=== PATIENT | female | born 1940 | race Caucasian/White ===

== ENCOUNTER 2016-12-05 18:52 | Emergency (ER) | payer MEDICARE, OTHER ==
[2016-01-08 13:49] VITALS: BMI 33.0
[~2016-12-05 18:52] MED LIST: ADVAIR 500/501 DISK INH; BAYER CHEWABLE81 MG PO; CALCI-CHEW1 TAB.CHEW PO; DITROPAN X10 MG/BOTT PO; FISH OIL 1,0001 CA1; FISH OIL 1,0001 CA1 PO; NORVASC10 MG PO; SYNTHROID75 MCG PO; VITAMIN D31000 UNI2 PO; ZITHROMAX250 MG PO; ZOCOR20 MG PO
[2016-12-05 19:46] LABS: ALBUMIN 3.8 g/dL (3.4-5.0); ALKALINE PHOSPHATASE 99 U/L (46-116); ALT (SGPT) 38 U/L (10-68); BILIRUBIN - TOTAL 0.54 mg/dL (0.2-1.3); CALC OSMOLALITY 282 mosm/kg (275-300); CALCIUM 9.4 mg/dL (8.5-10.1); CARBON DIOXIDE 24.6 mmol/L (21.0-32.0); CHLORIDE - SERUM 105 mmol/L (98-107); CREATININE - SERUM 0.9 mg/dL (0.6-1.3); GLUCOSE 92 mg/dL (74-106); POTASSIUM - SERUM 4.2 mmol/L (3.5-5.1); PROTEIN - SERUM 7.2 g/dL (6.4-8.2); SODIUM 141 mmol/L (136-145); UREA NITROGEN 18 mg/dL (7-18); eGFR NON AFRICAN AMERICAN 65 mL/min (90-120)
[2016-12-05 19:59] LABS: T4 THYROXIN - FREE 1.48 ng/dL (0.76-1.46); T4 THYROXINE 12.6 ug/dL (4.7-13.3)
[2016-12-05 20:06] LABS: AMYLASE - SERUM 65 U/L (25-115); CREATINE KINASE 436 UL (21-215); LIPASE 151 U/L (73-393); PRO BNP 173 pg/mL (0-450); THYROID STIMULATING HORMONE 2.64 uIU/mL (0.36-3.74)
[2016-12-05 20:07] LABS: TROPONIN-I < 0.017 ng/mL (0.000-0.060)
[2016-12-05 20:09] LABS: BASOPHILS 0.5 % (0.0-2.0); EOSINOPHILS 9.6 % (0-7); HEMATOCRIT 41.5 % (36.0-48.0); HEMOGLOBIN 13.8 g/dL (12-16); IMMATURE GRANULOCYTES 0.2 % (0-5); LYMPHOCYTES 30.1 % (15-50); MCH 30.9 pg (26.0-34.0); MCHC 33.3 g/dL (31.0-37.0); MEAN PLATELET VOLUME 11.1 fL (7.4-10.4); MONOCYTES 9.3 % (2-11); NEUTROPHILS 50.3 % (40-80); RBC 4.46 10x6/uL (4.00-5.40); RDW 13.4 % (11.5-14.5); WBC 6.4 10x3/uL (4.8-10.8)
[2016-12-05 20:09] LABS: CKMB 8.2 U/L (0.0-3.6)
[2016-12-05 20:12] LABS: PLATELET COUNT 227 10x3/uL (130-400)
[2016-12-05 20:35] LABS: APPEARANCE CLEAR (CLEAR); BILIRUBIN NEGATIVE (NEGATIVE); COLOR YELLOW (YELLOW); GLUCOSE NEGATIVE (NEGATIVE); KETONE NEGATIVE (NEGATIVE); LEUKOCYTE ESTERASE TRACE (NEGATIVE); NITRITE NEGATIVE (NEGATIVE); PROTEIN NEGATIVE (NEGATIVE); SPECIFIC GRAVITY 1.015 (1.005-1.020); UROBILINOGEN NORMAL (NORMAL)
[2016-12-05 20:37] LABS: BACTERIA FEW /hpf (NONE SEEN); EPITHELIAL CELLS 0-5 /hpf (0-5); MUCUS <1+ /lpf (NONE SEEN); RED CELLS - URINE RARE /hpf (0-5); WHITE CELLS - URINE 0-5 /hpf (0-5)
[2016-12-05 20:50] LABS: UDS - AMPHET NEGATIVE QUAL (NEGATIVE); UDS - BARB NEGATIVE QUAL (NEGATIVE); UDS - BENZO NEGATIVE QUAL (NEGATIVE); UDS - COCAINE NEGATIVE QUAL (NEGATIVE); UDS - METH NEGATIVE QUAL (NEGATIVE); UDS - OPIATE NEGATIVE QUAL (NEGATIVE); UDS - PCP NEGATIVE QUAL (NEGATIVE); UDS - THC NEGATIVE QUAL (NEGATIVE)
[2016-12-05 21:19] LABS: HCG SERUM NEGATIVE (NEGATIVE)
== END 2016-12-05 22:15 | disposition home or self-care (01) ==
LOC: D.ER 18:52
PROVIDERS: Emergency Medicine; Family Medicine
DX: T38.1X1A Poisoning by thyroid hormones and substitutes, accidental (unintentional), initial encounter (principal); R53.83 Other fatigue

== ENCOUNTER 2016-12-30 09:37 | Emergency (ER) | payer MEDICARE, OTHER ==
[2016-01-08 13:49] VITALS: BMI 33.0
[2016-12-30 10:59] LABS: BASOPHILS 0.5 % (0-2); EOSINOPHILS 14.6 % (0-7); HEMATOCRIT 44.2 % (36.0-48.0); HEMOGLOBIN 14.4 g/dL (12-16); IMMATURE GRANULOCYTES 0.2 % (0-5); LYMPHOCYTES 23.6 % (15-50); MCH 30.4 pg (26.0-34.0); MCHC 32.6 g/dL (31.0-37.0); MCV 93.4 fL (80.0-100.0); MEAN PLATELET VOLUME 10.8 fL (7.4-10.4); MONOCYTES 8.8 % (2-11); NEUTROPHILS 52.3 % (40-80); PLATELET COUNT 223 10x3/uL (130-400); RBC 4.73 10x6/uL (4.00-5.40); RDW 12.9 % (11.5-14.5); WBC 5.8 10x3/uL (4.8-10.8)
[2016-12-30 11:20] LABS: ALBUMIN 3.5 g/dL (3.4-5.0); ALKALINE PHOSPHATASE 98 U/L (46-116); ALT (SGPT) 35 U/L (10-68); BILIRUBIN - TOTAL 0.62 mg/dL (0.2-1.3); CALC OSMOLALITY 282 mosm/kg (275-300); CALCIUM 9.6 mg/dL (8.5-10.1); CARBON DIOXIDE 27.5 mmol/L (21.0-32.0); CHLORIDE - SERUM 106 mmol/L (98-107); CREATININE - SERUM 0.9 mg/dL (0.6-1.3); GLUCOSE 101 mg/dL (74-106); PROTEIN - SERUM 7.1 g/dL (6.4-8.2); SODIUM 141 mmol/L (136-145); UREA NITROGEN 17 mg/dL (7-18); eGFR NON AFRICAN AMERICAN 65 mL/min (90-120)
[2016-12-30 11:33] LABS: CREATINE KINASE 94 UL (21-215); MAGNESIUM - SERUM 2.1 mg/dL (1.8-2.4); PRO BNP 152 pg/mL (0-450); TROPONIN-I < 0.017 ng/mL (0.000-0.060)
== END 2016-12-30 12:21 | disposition home or self-care (01) ==
LOC: D.ER 09:37
PROVIDERS: Emergency Medicine
DX: I50.9 Heart failure, unspecified (principal); J44.9 Chronic obstructive pulmonary disease, unspecified; I10 Essential (primary) hypertension

== ENCOUNTER 2017-06-16 07:33 | Inpatient (IN) | payer MEDICARE, OTHER ==
--- NOTE | ~2017-06-16 | HEMODYNAMI ---
PATIENT:SHI SERRANO MEDICAL RECORD: [id number] : 42 LOCATION:D. D.2107 ADMISSION DATE: 06/16/17 Generatedon:06/19/20178:58 Patient name: SHI SERRANO Patient #: [id number] SSN: D OB: 1940 Date of study: 06/19/2017 Page: Of Hemodynamic Procedure Report Patient Data Patient Demographics Procedure consent was obtained First Name: SHI Gender: Female Last Name: ZACH : 1940 [facility] Initial: A Age: 77 year(s) Patient #: [id number] Race: Unknown Additional ID: [id number] Contact details Address: [address] [place] [address] ROAD State: [place] City: [facility] Zip code: [address] Admission Admission Data Admission Date: 06/16/2017 Admission Time: 11:13 Room #: D.2107 Lab Results Lab Result Date: 06/19/2017 Lab Result Time: 0:00 Biochemistry Name Units Result Min Max BUN mg/dl 33 --(----)-* 7 18 Creatinine mg/dl 1 --(--*-)-- 0.6 1.3 CBC Name Units Result Min Max Hemoglobin g/dl 13.6 --(*---)-- 13.5 17.5 Procedure Procedure Types Cath Procedure Diagnostic Procedure C [facility] w/Coronaries Miscellaneous Procedures Moderate Sedation up to 30 minutes Procedure Description Procedure Date Procedure Date: 06/19/2017 Procedure Start Time: 8:36 Procedure End Time: 8:57 Procedure Staff Name Function Jesus Tafoya MD Performing Physician Nancy Myers RT Scrub Kyle Joyner RN Nurse Rei Torrez RT Monitor Procedure Data Cath Procedure Fluoroscopy Diagnostic fluoroscopy Total fluoroscopy Time: 3.9 time: 3.9 min min Diagnostic fluoroscopy Total fluoroscopy dose: 709 dose: 709 mGy mGy Contrast Material Contrast Material Type Amount (ml) Isovue 300 57 Entry Location Entry Primary Successful Side Size Upsize Upsize Entry Closure Succes sful Closure Location (Fr) 1 (Fr) 2 (Fr) Remarks Device Remarks Femoral Right 5 Fr Exoseal artery Estimated blood loss: 10 ml Diagnostic catheters Device Type Used For End Catheter Placement Cordis 5Fr JL 4.0 Procedure Catheter (MP) Cordis 5Fr 3DRC Catheter Procedure (MP) Cordis 5Fr Pigtail Procedure Catheter (MP) Diagnostic Infinity 5Fr Procedure JL 3.5 catheter Procedure Complications No complications Procedure Medications Medication Administration Route Dosage Oxygen NC 2 l/min Lidocaine 2% added to field 20 Heparin Flush Bag added to field 2 bags (1000units/500ml NS) 0.9% NaCl I.V. 100 ml/hr Versed I.V. 1 mg Fentanyl I.V. 50 mcg Hemodynamics Rest HGB: 13.6 (g/dl) Heart Rate: 73 (bpm) Pressure Samples Time Site Value (mmHg) Purpose Heart Use Rate(bpm) 8:40 AO 134/69(96) Snapshot 74 8:45 LV 130/-5,13 EDP 72 8:46 AO 129/60(87) Pullback 76 8:46 LV 136/8,20 Pullback 76 Gradients Valve Time Site 1 Site 2 Mean SEP/DFP Peak To Heart Use (mmHg) (sec/min) Peak Rate (mmHg) (bpm) Aortic 8:46 LV AO 6 11 7 76 136/8,20 129/60(87) Calculations Valve P-P Mean Valve Index Valve Source Name Gradient Area Flow (cm2) Aortic 7 6 7 6 Snapshots Pre Cath Intra NCS Post Cath Vital Signs Time Heart Resp SPO2 etCO2 NIBP (mmHg) Rhythm Pain Sedation Rate (ipm) (%) (mmHg) Status Level (bpm) 8:28:53 75 13 95 23.8 157/80(118) NSR 0 (11) 10(A) , No pain 8:33:50 75 20 96 24.6 155/87(122) NSR 0 (11) 10(A) , No pain 8:38:43 75 18 93 24.6 138/70(115) NSR 0 (11) 9(A) , No pain 8:43:36 73 16 93 16.4 130/72(105) NSR 0 (11) 9(A) , No pain 8:48:27 74 16 93 14.9 133/67(104) NSR 0 (11) 9(A) , No pain 8:53:18 75 21 94 29.1 136/77(108) NSR 0 (11) 10(A) , No pain Medications Time Medication Route Dose Verified Delivered Reason Notes Effec tiveness by by 8:20:16 Oxygen NC 2 Jesus Buffie used for l/min Lottie Joyner RN procedure MD 8:25:52 Lidocaine 2% added 20ml Jesus Jesus for local to vial Lottie Tafoya MD anesthetic field 8:25:58 Heparin Flush added 2 Jesus Jesus used for Bag to bags Lottie Tafoya MD procedure (1000units/500ml field SHELBY NS) 8:28:21 0.9% NaCl I.V. 100 Jesus Buffie Per ml/hr Lottie Joyner RN physician 8:32:30 Versed I.V. 1 mg Jesus Buffie for Lottie Joyner RN sedation 8:32:36 Fentanyl I.V. 50 Jesus Buffie for mcg Lottie Joyner RN sedation Procedure Log Time Note 7:50:46 Rei Torrez RT(R) sent for patient. Start room use. 7:57:47 Time tracking: Regular hours 7:57:51 Plan of Care:Hemodynamics will remain stable., Cardiac rhythm will remain stable., Comfort level will be maintained., Respiratory function will remain adequate., Patient/ family verbilizes understanding of procedure., Procedure tolerated without complication., Recovers from procedure without complications.. 8:00:42 H&P Date Dictated: 06/16/2017 Within 30 days and on chart.. 8:01:48 Lab Result : BUN 33 mg/dl 8:01:48 Lab Result : Creatinine 1 mg/dl 8:01:48 Lab Result : Hemoglobin 13.6 g/dl 8:01:52 Lab results completed and on chart. 8:18:56 Patient received from Med II to CCL 1 Alert and oriented. Tansferred to table in Supine position. 8:18:58 Warm blankets applied, and amada hugger turned on for patient comfort. 8:18:58 Correct patient and procedure confirmed by team. 8:19:00 Signed procedure consent form obtained from patient. 8:19:01 ECG and BP/O2 sat monitors applied to patient. 8:19:59 Pre-procedure instructions explained to patient. 8:20:00 Pre-op teaching completed and patient verbalized understanding. 8:20:07 Family in patients room. 8:20:08 Patient NPO since Midnight. 8:20:11 Is the patient allergic to Iodine/contrast media? No. 8:20:13 Is patient on blood thinner?Yes 8:20:16 Oxygen 2 l/min NC was administered by Kyle Joyner RN; used for procedure; 8:20:16 ACC The patient was administered the following blood thiners within the last 24 hours: ACCPlavix 8:20:19 Patient diabetic? No. 8:20:22 Patient not . Patient is over age 55. 8:20:25 Previous problem with sedation/anesthesia? No ? 8:20:28 Snore? Yes 8:20:29 Sleep apnea? No 8:20:30 Deviated septum? No 8:20:30 Opens mouth fully? Yes 8:20:31 Sticks out tongue? Yes 8:20:36 Airway obstruction? Yes COPD 8:20:41 Dentures? No ? 8:20:58 IV patent on arrival in right hand with 0.9% NaCl at [facility]. 8:21:04 Patient pain scale 0/10 ?. 8:25:52 Lidocaine 2% 20ml vial added to field was administered by Jesus Tafoya MD; for local anesthetic; 8:25:58 Heparin Flush Bag (1000units/500ml NS) 2 bags added to field was administered by Jesus Tafoya MD; used for procedure; 8:26:42 Pre procedure: right dorsailis pedis pulse 1+ Palpable, but thready & weak; easily obliterated 8:27:06 Unable to go radial due to IV in right hand. 8:27:15 Right groin area was prepped with chlora-prep and draped in sterile fashion 8:27:17 Alarms reviewed by R. N. 8:27:18 Sharps counted by scrub and verified by R.N. 8:27:30 Use device set Femoral Dx 8:27:31 Tegaderm 4 x 4 opened to sterile field. 8:27:32 Acist Hand Control opened to sterile field. 8:27:32 Acist Manifold opened to sterile field. 8:27:34 Acist Syringe opened to sterile field. 8:27:34 Bag Decanter opened to sterile field. 8:27:35 Medline Cath Pack opened to sterile field. 8:27:35 Terumo 5Fr [place] Sheath opened to sterile field. 8:27:35 St Bahvin 260cm J .035 wire opened to sterile field. 8:27:37 Diagnostic Infinity 5Fr Multipack catheter opened to sterile field. 8:27:46 Vital chart was started 8::47 Baseline sample Acquired. 8::13 Rhythm: sinus rhythm 8:: Full Disclosure recording started 8:28: 0.9% NaCl 100 ml/hr I.V. was administered by Kyle Joyner RN; Per physician; 8:28:55 Cook 4Fr Micropuncture ([id number]) opened to sterile field. 8:30:36 --------ALL STOP TIME OUT------ 8:30:38 Final Timeout: patient, procedure, and site verified with staff and physician. All members of the team are in agreement. 8:30:40 Right groin site verified by team. 8:30:43 Physical assessment completed. ASA score P 2 - A patient with mild systemic disease as per Jesus Tafoya MD. 8:30:47 Sedation plan: IV Moderate Sedation Versed, Fentanyl 8:32:30 Versed 1 mg I.V. was administered by Kyle Joyner RN; for sedation; 8:32:36 Fentanyl 50 mcg I.V. was administered by Kyle Joyner RN; for sedation; 8:34:00 IV in right hand is now not working, moving fluid to IV in left forearm. 8:36:17 Procedure started. 8:36:21 Local anesthetic to right femoral artery with Lidocaine 2% by Jesus Tafoya MD.INITIAL ACCESS ONLY 8:38:41 Access obtained with 4Fr micropunture. 8:38:52 A 5 Fr sheath was inserted into the Right Femoral artery 8:39:47 A Cordis 5Fr JL 4.0 Catheter (MP) was advanced over the wire and used for Procedure. 8:40:32 LCA angiography performed. 8:41:46 Catheter exchanged over wire. 8:41:53 Zero performed for pressure channel P1 8:42:02 A Cordis 5Fr 3DRC Catheter (MP) was advanced over the wire and used for Procedure. 8:43:19 RCA angiography performed. 8:43:34 Catheter exchanged over wire. 8:43:43 A Cordis 5Fr Pigtail Catheter (MP) was advanced over the wire and used for Procedure. 8:45:13 LV angiography performed. 8:45:14 LV gram done using CODY 8:45:22 EF : 70 % 8:45:24 LV hemodynamics recorded. 8:45:28 Injector settings: Ml/sec: 12, Volume: 8, 8:46:18 Catheter exchanged over wire. 8:46:24 A Diagnostic Infinity 5Fr JL 3.5 catheter was advanced over the wire and used for Procedure. 8:48:50 to better visualize the LAD. 8:48:58 LCA angiography performed. 8:51:40 Catheter exchanged over wire. 8:52:18 Cordis 5Fr Exoseal opened to sterile field. 8:52:42 Sheath removed intact; hemostasis achieved with Exoseal to the Right Femoral artery. 8:52:45 Procedure ended.(Physican Out) 8:52:59 Fluoroscopy time 03.90 minutes. 8:53:04 Fluoroscopy dose: 709 mGy 8:53:04 Flurop Dose total: 709 8:53:08 Contrast amount:Isovue 300 57ml. 8:53:10 Sharps counted by scrub and verified by R.N. 8:53:12 Insertion/operative site no bleeding no hematoma. 8:53:14 Post-op/insertion site Right Femoral artery dressed using a 4 x 4 and Tegaderm. 8:53:16 Post Procedure Pulses reassessed and unchanged 8:53:19 Post-procedure physical assessment completed. ASA score P 2 - A patient with mild systemic disease as per Jesus Tafoya MD. 8:53:22 Post procedure rhythm: unchanged. 8:53:25 Estimated blood loss: 10 ml 8:53:29 Post procedure instruction explained to patient.Patient verbalizes understanding. 8:53:29 Patient needs reinforcement of post procedure teaching. 8:53:40 Procedure type changed to Cath procedure, Diagnostic procedure, LHC, LHC w/Coronaries, Miscellaneous Procedures, Moderate Sedation up to 30 minutes 8:53:41 Procedure and supply charges have been captured, reviewed, submitted and are correct. 8:53:44 Procedure Complication : No complications 8:57:00 Vital chart was stopped 8:57:00 See physician's report for complete and final results. 8:57:07 Report given to PCU. 8:57:22 Patient transfered to PCU with Bed. 8:57:25 Procedure ended. 8:57:25 Full Disclosure recording stopped 8:57:31 End room use (Document Last) Device Usage Item Name Manufacture Quantity Catalog Hospital Part Current Minimal Lot# / Number Charge Number Stock Stock Serial# Code Tegaderm 4 x 3M 1 [id number] [id number] 515011 035283 5 4 Acist Hand Acist 1 29915 577939 591069 575531 5 Control [employer] Inc Acist Acist 1 68329 354371 297971 728050 5 Manifold Medical [employer] Inc Acist Syringe Acist 1 68716 866658 698069 994560 20 Medical Systems Inc Bag Decanter Microtek 1 2002S 711341 96784 782313 5 Medical Inc. Medline Cath Cardinal 1 [id number] 155621 00529 078316 5 Pack Health Terumo 5Fr Terumo 1 [id number] 771024 625121 301609 [address] Bhavin 1 790693 852591 623387 624964 30 J .035 wire Diagnostic Cardinal 1 [id number] 273653 40117 720691 30 Infinity 5Fr Health Multipack catheter Cook 4Fr Cook Medical 1 [id number] 304014 715050 447200 5 Micropuncture ([id number]) Cordis 5Fr JL Cardinal 1 693539 5 4.0 Catheter Health (MP) Cordis 5Fr Cardinal 1 905844 5 3DRC Catheter Health (MP) Cordis 5Fr Cardinal 1 374775 5 Pigtail Health Catheter (MP) Diagnostic Cardinal 1 [id number] 420748 270372 073584 5 Infinity 5Fr Health JL 3.5 catheter Cordis 5Fr Cardinal 1 EX500 158508 069430 891859 10 DoseMe Signature Audit [place] Stage Time Signature Unsigned Intra-Procedure 06/19/2017 Rei Torrez 8:58:24 AM RT(R) Signatures Monitor : Rei Torrez RT Signature : Date : Time : [facility] [address] [facility] [place] [address]
[2017-06-16 08:35] LABS: BASOPHILS 0.4 % (0-2); EOSINOPHILS 10.5 % (0-7); HEMOGLOBIN 14.9 g/dL (12-16); IMMATURE GRANULOCYTES 0.3 % (0-5); LYMPHOCYTES 13.3 % (15-50); MCH 31.6 pg (26.0-34.0); MCHC 33.1 g/dL (31.0-37.0); MCV 95.5 fL (80.0-100.0); MEAN PLATELET VOLUME 10.9 fL (7.4-10.4); MONOCYTES 6.3 % (2-11); NEUTROPHILS 69.2 % (40-80); PLATELET COUNT 205 10x3/uL (130-400); RBC 4.71 10x6/uL (4.00-5.40); RDW 13.8 % (11.5-14.5)
[2017-06-16 08:42] LABS: ALBUMIN 3.3 g/dL (3.4-5.0); ANION GAP 13.5 mmol/L (8-16); BILIRUBIN - TOTAL 0.49 mg/dL (0.2-1.3); CALCIUM 9.9 mg/dL (8.5-10.1); CARBON DIOXIDE 25.3 mmol/L (21.0-32.0); POTASSIUM - SERUM 3.8 mmol/L (3.5-5.1)
[2017-06-16] MEDS ORDERED: VENTOLIN HFA18 GM INH (12:40)
[2017-06-16] MEDS ORDERED: IPRAT-ALBUT 0.5-3 ML UPD (12:41)
--- NOTE | 2017-06-16 13:04 | NUR ---
RATIONALE FOR SCD'S EXPLAINED. REFUSED SCD'S
[2017-06-16 14:35] VITALS: BP 175/84; BMI 36.6
[2017-06-16 16:43] LABS: CKMB 5.4 U/L (0.0-3.6); CREATINE KINASE 132 UL (21-215)
[2017-06-16 16:45] LABS: TROPONIN-I 0.791 ng/mL (0.000-0.060)
--- NOTE | 2017-06-16 19:41 | NUR ---
RECEIVED REPORT, WILL ASSUME CARE OF PT, DENIES ANY NEEDS, BED IS LOW, SRX2, CALL LIGHT IN REACH, WILL CONTINUE PLAN OF CARE
[2017-06-16 19:57] LABS: CKMB 4.4 U/L (0.0-3.6); CREATINE KINASE 171 UL (21-215)
--- NOTE | 2017-06-16 20:09 | NUR ---
PLACED ON [id number]
[2017-06-17 02:24] LABS: CKMB 3.6 U/L (0.0-3.6); CREATINE KINASE 111 UL (21-215)
[2017-06-17 02:30] LABS: TROPONIN-I 0.337 ng/mL (0.000-0.060)
[2017-06-17 04:23] LABS: BASOPHILS 0.1 % (0-2); EOSINOPHILS 0.4 % (0-7); HEMATOCRIT 42.7 % (36.0-48.0); HEMOGLOBIN 14.4 g/dL (12-16); IMMATURE GRANULOCYTES 0.3 % (0-5); MCH 31.8 pg (26.0-34.0); MCHC 33.7 g/dL (31.0-37.0); MCV 94.3 fL (80.0-100.0); MEAN PLATELET VOLUME 11.3 fL (7.4-10.4); MONOCYTES 1.1 % (2-11); NEUTROPHILS 93.1 % (40-80); PLATELET COUNT 202 10x3/uL (130-400); RBC 4.53 10x6/uL (4.00-5.40); RDW 13.8 % (11.5-14.5)
[2017-06-17 04:41] LABS: ALBUMIN 3.1 g/dL (3.4-5.0); ANION GAP 17.2 mmol/L (8-16); BILIRUBIN - TOTAL 0.57 mg/dL (0.2-1.3); CALCIUM 9.4 mg/dL (8.5-10.1); CARBON DIOXIDE 22.8 mmol/L (21.0-32.0); CREATININE - SERUM 0.9 mg/dL (0.6-1.3); PROTEIN - SERUM 6.5 g/dL (6.4-8.2)
--- NOTE | 2017-06-17 07:15 | NUR ---
RECIEVED REPORT ON PATIENT, PATIENT IS ALERT AND ORIENTED AT THIS TIME. PATIENT IS SR ONMONITOR WITH A RATE OF 99 AT THIS TIME. PATIENT IS ON 3.5L/MIN VIA NC WITH NAD NOTED AT THIS TIME. CHEST RISES AND FALLS EQUALLY. PATIENT HAS A R HAND IV THAT IS SL AT THIS TIME. PATIENT DENIES ANY OTHER NEEDS. BED LOW AND LOCKED. CALL LIGHT IN REACH. CPOC
--- NOTE | 2017-06-17 07:24 | NUR ---
RESTING IN BED WITH NO DISTRESS. CPOC.
[2017-06-17 08:00] VITALS: BP 175/95
--- NOTE | 2017-06-17 08:00 | NUR ---
20 G IV SITED TO L AC. PATIENT IS GOING FOR A CTA SO NEEDED FOR CONTRAST. CPOC
--- NOTE | 2017-06-17 09:15 | NUR ---
MORNING MEDICATIONS GIVEN, NO ISSUES. CPOC
[2017-06-17 09:30] VITALS: BMI 36.5
--- NOTE | 2017-06-17 11:00 | NUR ---
PATIENT RESTING IN BED, DENIES ANY PAIN OR NEEDS AT THIS TIME. BED LOW AND LOCKED. CPOC
[2017-06-17 11:24] VITALS: BP 164/85
--- NOTE | 2017-06-17 12:49 | NUR ---
PATIENT SITTING UP IN BED, EATING LUNCH. DENIES ANY PAIN OR NEEDS AT THIS TIME. WILL CONT TO MONITOR PATIENT. BED LOW AND LOCKED. CALL LIGHT IN REACH. CPOC
--- NOTE | 2017-06-17 14:21 | NUR ---
ASSISTED PATIENT TO BATHROOM, PATIENT BACK TO BED. BED IS LOW AND LOCKED. PATIENT DENIES ANY PAIN AT THIS TIME. PATIENT GIVEN FLUTTER VALVE TO HELP BREAK UP SECRETION. NEED RESPIRATORY CULTURE. CPOC
[2017-06-17 16:00] VITALS: BP 144/65
--- NOTE | 2017-06-17 17:00 | NUR ---
PATIENT SITTING ON SIDE OF BED EATING DINNER. DENIES ANY NEEDS. STATES SHE WANTS TO GET A SHOWER LATER TONIGHT. WILL PASS ON IN REPORT. CPOC
--- NOTE | 2017-06-17 18:27 | NUR ---
SPOKE WITH DR MARTINEZ REGARDING CONSULT. CPOC
[2017-06-17 21:28] VITALS: BP 155/87
[2017-06-18 02:07] VITALS: BP 151/72
--- NOTE | 2017-06-18 03:02 | NUR ---
PATIENT RESTING WELL IN BED, DENIES ANY NEEDS OR PAIN AT THIS TIME. CALL LIGHT IN REACH.
--- NOTE | 2017-06-18 05:20 | NUR ---
PT RESTING COMFORTABLY AT THIS TIME, EYES CLOSED, RESPIRATIONS EVEN AND UNLABORED. CONTINUE TO MONITOR CLOSELY. BED LOW, CALL LIGHT IN REACH, SIDE RAILS X 2, HOB 30 DEGREES.
[2017-06-18 05:25] VITALS: BP 128/62
[2017-06-18 05:41] LABS: BASOPHILS 0 % (0-2); EOSINOPHILS 0 % (0-7); HEMATOCRIT 39.9 % (36.0-48.0); HEMOGLOBIN 13.4 g/dL (12-16); IMMATURE GRANULOCYTES 0.3 % (0-5); LYMPHOCYTES 4.2 % (15-50); MCH 31.2 pg (26.0-34.0); MCHC 33.6 g/dL (31.0-37.0); MEAN PLATELET VOLUME 11.4 fL (7.4-10.4); MONOCYTES 3.8 % (2-11); NEUTROPHILS 91.7 % (40-80); PLATELET COUNT 217 10x3/uL (130-400); RBC 4.29 10x6/uL (4.00-5.40); RDW 13.8 % (11.5-14.5)
[2017-06-18 05:54] LABS: ALBUMIN 3.1 g/dL (3.4-5.0); ANION GAP 17.3 mmol/L (8-16); BILIRUBIN - TOTAL 0.35 mg/dL (0.2-1.3); CALCIUM 10.3 mg/dL (8.5-10.1); CARBON DIOXIDE 21.4 mmol/L (21.0-32.0); POTASSIUM - SERUM 3.7 mmol/L (3.5-5.1); PROTEIN - SERUM 6.6 g/dL (6.4-8.2)
--- NOTE | 2017-06-18 07:09 | NUR ---
RECIEVED REPORT ON PATIENT, PATIENT IS ALERT AND ORIENTED THIS AM. PATIENT HAS A R HAND 22G IV THAT IS SL, AND A 20G IV IN L AC THAT IS SL. PATIENT IS ON 3.5L/MIN VIA NC WITH NAD NOTED AT THIS TIME. PATIENT IS SR ON MONITOR WITH A RATE OF 80. PATIENT DENIES ANY NEEDS OR PAIN AT THIS TIME. BED LOW AND LOCKED. CPOC
[2017-06-18 08:00] VITALS: BP 161/65
[2017-06-18 09:15] LABS: IMMUNOGLOBULIN E 125 IU/mL (0-100)
--- NOTE | 2017-06-18 11:24 | NUR ---
PATIENT SITTING UP IN BED, DENIES ANYN EEDS OR PAIN AT THIS TIME. BED LOW AND LOCKED. CPOC
[2017-06-18 12:00] VITALS: BP 144/70
--- NOTE | 2017-06-18 13:37 | NUR ---
PATIENT SITTING UP IN BED, FINISHED WITH LUNCH. DENIES ANY PAIN. CPOC
--- NOTE | 2017-06-18 14:00 | NUR ---
PATIENT WAS AMBULATING AROUND HALLWAY, WITHOUT O2, SAW PATIENT AROUND THE CORNER AND WAS SOB, O2 SAT CHECKED, PATIENT O2 SAT 88%, GOT PATIENT BACK TO ROOM AND PUT BACK ON O2 AND O2SAT 95% ON 3.5L/MIN VIA NC. CPOC
--- NOTE | 2017-06-18 15:47 | NUR ---
SPOKE WITH PATIENT REGARDING HAVING HEART CATH/STRESS TEST SINCE DR MARTINEZ IS THINKING PATIENT HAS HAD A MD, PATIENT WAS REFUSING BUT NOW PATIENT STATES SHE IS OKAY WITH IT ONCE THE RISK OF NOT HAVING PROCEDURE/TESTING DONE. PATIENT STATES SHE WANTS ME TO SPEAK WITH SON BEFORE MAKING A FORSURE DECISION. WILL SPEAK WITH SON WHEN HE ARRIVES.
--- NOTE | 2017-06-18 18:00 | NUR ---
PATIENT EATING DINNER AT THIS TIME, DENIES ANY NEEDS. CPOC
--- NOTE | 2017-06-18 18:28 | NUR ---
SPOKE WITH DR MARTINEZ, ORDERED TO KEEP PATIENT NPO AFTER MIDNIGHT FOR POSSIBLE HEART CATH TOMORROW. PATIENT INFORMED. CPOC
[2017-06-18 22:06] VITALS: BP 166/83
[2017-06-19] VITALS (12 sets, daily range): BP systolic 95–175; BP diastolic 52–85
[2017-06-19 05:02] LABS: BASOPHILS 0 % (0-2); EOSINOPHILS 0.1 % (0-7); HEMATOCRIT 41.2 % (36.0-48.0); HEMOGLOBIN 13.6 g/dL (12-16); IMMATURE GRANULOCYTES 0.3 % (0-5); LYMPHOCYTES 7.5 % (15-50); MCH 31.2 pg (26.0-34.0); MCV 94.5 fL (80.0-100.0); MEAN PLATELET VOLUME 10.8 fL (7.4-10.4); MONOCYTES 6.5 % (2-11); NEUTROPHILS 85.6 % (40-80); PLATELET COUNT 203 10x3/uL (130-400); RBC 4.36 10x6/uL (4.00-5.40); RDW 14.1 % (11.5-14.5); WBC 11.5 10x3/uL (4.8-10.8)
--- NOTE | 2017-06-19 05:16 | NUR ---
CALL LIGHT IN REACH, WILL CONTINUE WITH PLAN OF CARE.
[2017-06-19 05:18] LABS: ALBUMIN 2.8 g/dL (3.4-5.0); ANION GAP 12.3 mmol/L (8-16); BILIRUBIN - TOTAL 0.4 mg/dL (0.2-1.3); CALCIUM 9.9 mg/dL (8.5-10.1); CARBON DIOXIDE 25.7 mmol/L (21.0-32.0); PROTEIN - SERUM 6.3 g/dL (6.4-8.2)
--- NOTE | 2017-06-19 06:10 | NUR ---
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 CALL LIGHT IN REACH
--- NOTE | 2017-06-19 07:36 | NUR ---
PT SITTING UP IN BED WATCHING TV, PT TO HAVE HEART CATH TODAY. NPO. PT DENIES NEEDS WILL CONT TO MONITOR
--- NOTE | 2017-06-19 08:20 | NUR ---
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
--- NOTE | 2017-06-19 09:02 | NUR ---
RECEIVED REPORT FROM DEMETRIUS IN PILING SETTER. PT CLEAN CATH TO Ebony ARIAS. PT TO LAY FLAT FOR 2 HOURS.
--- NOTE | 2017-06-19 09:42 | NUR ---
PT HAS SPECIMEN CUP FOR RESP CULTURE AT BEDSIDE. INSTRUCTED HOW TO USE, PT TO CALL IF SHE IS ABLE TO COLLECT RESP CULTURE PT IS STILL LAYING FLAT R GROIN SITE WNL VS ARE STILL WNL WILL CONT TO MONITOR
--- NOTE | 2017-06-19 11:11 | NUR ---
PT BEDREST COMPLETE. VS ARE STILL WNL, R GROIN SITE IS STILL WNL. PT SITTING UP WITH NO PROBLEMS. IVONNE CASE MANAGEMENT CURRENTLY SPEAKING WITH PT
--- NOTE | 2017-06-19 11:20 | NUR ---
PT PIV IN R HAND INFILTRATED DC WITH CATH TIP INTACT. LEFT AC SL STILL PATENT, SWITCHED IV ABX TO THIS PIV.
--- NOTE | 2017-06-19 13:27 | NUR ---
PT SITTING UP IN BED DENIES NEEDS WILL CONT TO MONITOR
--- NOTE | 2017-06-19 19:28 | NUR ---
PT CALLED C/O HER LEFT AC IV BLEEDING WHILE SL. PT IS ALERT AND ORIENTED, AND HER LT AC IV WAS IN FACT BLEEDING AROUND THE INSERTION SITE. I REMOVED THE IV WITH CATH TIP INTACT. WILL HAVE PT RESITED. PT DENIES ANY OTHER NEEDS. CONTINUE TO MONITOR CLOSELY. BED LOW, CALL LIGHT IN REACH, SIDE RAILS X 2, HOB 30 DEGREES.
[2017-06-20 00:34] VITALS: BP 123/61
[2017-06-20 04:32] VITALS: BP 122/57
--- NOTE | 2017-06-20 06:14 | NUR ---
PT RESTING COMFORTABLY, NO NEEDS AT THIS TIME. CONTINUE TO MONITOR CLOSELY.
[2017-06-20 06:27] LABS: BASOPHILS 0 % (0-2); EOSINOPHILS 2.9 % (0-7); HEMATOCRIT 39.8 % (36.0-48.0); HEMOGLOBIN 12.9 g/dL (12-16); IMMATURE GRANULOCYTES 0.2 % (0-5); LYMPHOCYTES 21.2 % (15-50); MCH 31.1 pg (26.0-34.0); MCHC 32.4 g/dL (31.0-37.0); MCV 95.9 fL (80.0-100.0); MEAN PLATELET VOLUME 10.6 fL (7.4-10.4); MONOCYTES 8.7 % (2-11); RBC 4.15 10x6/uL (4.00-5.40); RDW 14.3 % (11.5-14.5)
[2017-06-20 06:28] LABS: PLATELET COUNT 161 10x3/uL (130-400); WBC 5.8 10x3/uL (4.8-10.8)
[2017-06-20 06:59] LABS: ALBUMIN 2.7 g/dL (3.4-5.0); ANION GAP 9.2 mmol/L (8-16); BILIRUBIN - TOTAL 0.5 mg/dL (0.2-1.3); CALCIUM 9.3 mg/dL (8.5-10.1); CARBON DIOXIDE 28.2 mmol/L (21.0-32.0); CREATININE - SERUM 1.1 mg/dL (0.6-1.3); MAGNESIUM - SERUM 2.2 mg/dL (1.8-2.4); PHOSPHOROUS 3.6 mg/dL (2.5-4.9); POTASSIUM - SERUM 4.4 mmol/L (3.5-5.1); PROTEIN - SERUM 5.6 g/dL (6.4-8.2)
--- NOTE | 2017-06-20 07:32 | NUR ---
PT SITTING UP IN BED SLEEPING NO S/S DISTRESS NOTED RR EVEN AND UNLABORED. WILL CONT TO MONITOR
[2017-06-20 08:00] VITALS: BP 138/70
--- NOTE | 2017-06-20 09:02 | NUR ---
pt refuses another iv site. her iv came out last night and does not want another one. pt only has iv levaquin, possibility that she will go home today. will ask dr menchaca if we can switch iv levaquin to po per pt request.
--- NOTE | 2017-06-20 11:14 | NUR ---
Patient Name: SHI SERRANO Admission Status: ER Accout number: [id number] Admission Date: 06-16-2017 : 1940 Admission Diagnosis: Attending: JESSA PATEL Current LOS: 4 Anticipated DC Date: 06-20-2017 Planned Disposition: Home Primary Insurance: MEDICARE A & B Discharge Planning Comments: * Is the patient Alert and Oriented? Yes 0 * How many steps to enter\exit or inside your home? 2 W/RAILS 0 * PCP DR. MARIN 0 * Pharmacy [facility] [address] 0 * Preadmission Environment Home with Family 0 * ADLs Independent 0 * Equipment Cane Nebulizer Oxygen 0 * Other Equipment OXYGEN AT NIGHT ONLY [facility] - MEDICAL EQUIPMENT PROVIDER PREFERENCE 0 * List name and contact numbers for known caregivers / representatives who currently or will assist patient after discharge: ISABELLA SERRANO, SON, 0 * Community resources currently utilized Other 0 * Please name any agencies selected above. [facility] 0 * Additional services required to return to the preadmission environment? No 0 * Can the patient safely return to the preadmission environment? Yes 0 * Has this patient been hospitalized within the prior 30 days at any hospital? No 0 CM MET WITH PT IN ROOM TO DISCUSS DISCHARGE PLANNING AND NEEDS. 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 PT HAS CANE, NEBULIZER AND NIGHTTIME OXYGEN FROM [facility]. PT HAS NO OUTSIDE SERVICES ASSISTING IN THE HOME FOR HER CARE, BUT HAS HIRED CAREGIVERS ASSISTING WITH HER AT HOME NOW. CM DISCUSSED AVAILABILITY OF HOME HEALTH, REHAB SERVICES AND MEDICAL EQUIPMENT. PT DENIES DISCHARGE NEEDS FOR HERSELF, REPORTS HER SON WILL PICK HER UP FOR DISCHARGE HOME. IMPORTANT MESSAGE FROM MEDICARE PROVIDED AND EXPLAINED. PT ASKED THAT CM CALL [facility] [place] TO ASK FOR HOME HEALTH OR HOME CARE FOR HER SPOUSE AT HOME TO ASSIST IN HIS CARE. CM CALLED [facility] IN [place], , SPOKE TO BRIANNE, EXPLAINED REQUEST; REQUEST WAS ELECTRONICALLY FORWARDED TO FELISHA MEDELLIN OF [facility] FOR REVIEW. CM RECEIVED OXYGEN TESTING AND ORDER FOR OXYGEN. CM MET WITH PT IN ROOM, PT WOULD LIKE TO GET HER PORTABLE OXYGEN FROM [facility]. CM DISCUSSED AVAILABILITY OF REHAB AND HOME HEALTH FOR PT, PT DECLINES, REPORTS WITH [facility] TAKING VITALS AND ARRANGING MEDICATIONS, SHE IS ABLE TO DO EVERYTHING ELSE HERSELF AND DENIES NEED FOR HOME PHYSICAL THERAPY SERVICES. CM CALLED [facility], , SPOKE TO CYNTHIA, PROVIDED REFERRAL INFORMATION. CM FAXED REFERRAL TO [facility] FOR OXYGEN AT [phone]. [facility] PATIENT TO DELIVER PORTABLE OXYGEN TO HOSPITAL ROOM FOR DISCHARGE HOME TODAY. Release And Technical Records Clerk: Gwyn Padilla
[2017-06-20 11:39] VITALS: BP 136/76
--- NOTE | 2017-06-20 12:41 | NUR ---
PT SAYS IT WILL BE A WHILE BEFORE SHE CAN GO HOME. SHE HAS TO WAIT ON HER FAMILY TO GET OFF WORK TO COME AND GET HER.
[2017-06-20] MEDS ORDERED: IPRAT-ALBUT 0.5-3 ML UPD (13:15)
--- NOTE | 2017-06-20 14:38 | NUR ---
WENT OVER DC PAPERWORK WITH PT PT VERBALIZES UNDERSTANDING. 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 PT IS AWAITING HOME O2 TO BE DELIVERED AND HER SON TO PICK HER UP WILL NOTIFY STAFF WHEN SHE IS READY TO GO.
--- NOTE | 2017-06-20 14:43 | NUR ---
WHILE GOING OVER PT DC PAPERWORK, [facility] [address] AND WANTED HER SCRIPT CALLED IN TO [facility] ON [address] CALLED [facility] ON [address] AND TOLD THEM TO CANCEL SCRIPT AND SCRIPT WAS CALLED IN TO [facility] ON [facility]. SPOKE WITH NAREN.
--- NOTE | 2017-06-20 15:45 | NUR ---
HOME O2 WAS DELIVERED. WHEELED PT DOWN TO FRONT ENTRANCE WHERE SHE WAS PICKED UP BY HER FAMILY
== END 2017-06-20 15:45 | disposition home or self-care (01) | DRG 280 ==
LOC: D.ER 07:33 → D.M2 11:13
PROVIDERS: Emergency Medicine; Internal Medicine Cardiovascular Disease; Internal Medicine Pulmonary Disease; ADMIT Family Medicine
PROC: B2151ZZ Fluoroscopy of Left Heart using Low Osmolar Contrast (ICD-10-PCS; 2017-06-19)
PROC: 4A023N7 Measurement of Cardiac Sampling and Pressure, Left Heart, Percutaneous Approach (ICD-10-PCS; 2017-06-19)
PROC: B2101ZZ Fluoroscopy of Single Coronary Artery using Low Osmolar Contrast (ICD-10-PCS; principal; 2017-06-19 07:15)
DX: I21.4 Non-ST elevation (NSTEMI) myocardial infarction (principal); J96.01 Acute respiratory failure with hypoxia; J15.6 Pneumonia due to other Gram-negative bacteria; J15.212 Pneumonia due to Methicillin resistant Staphylococcus aureus; J44.0 Chronic obstructive pulmonary disease with (acute) lower respiratory infection; J44.1 Chronic obstructive pulmonary disease with (acute) exacerbation; J98.11 Atelectasis; I25.10 Atherosclerotic heart disease of native coronary artery without angina pectoris; G47.33 Obstructive sleep apnea (adult) (pediatric); I10 Essential (primary) hypertension; E03.9 Hypothyroidism, unspecified; I07.1 Rheumatic tricuspid insufficiency; Z87.891 Personal history of nicotine dependence

== ENCOUNTER 2017-07-23 13:18 | Emergency (ER) | payer MEDICARE, OTHER ==
[~2017-07-23 13:18] MED LIST changes: +IPRAT-ALBUT 0.5-3 ML UPD; +VENTOLIN HFA18 GM INH
[2017-07-23 13:53] LABS: BASOPHILS 0.3 % (0-2); EOSINOPHILS 12.2 % (0-7); HEMATOCRIT 40.2 % (36.0-48.0); HEMOGLOBIN 13.2 g/dL (12-16); IMMATURE GRANULOCYTES 0.2 % (0-5); LYMPHOCYTES 17.9 % (15-50); MCH 30.8 pg (26.0-34.0); MCHC 32.8 g/dL (31.0-37.0); MCV 93.9 fL (80.0-100.0); MEAN PLATELET VOLUME 10.3 fL (7.4-10.4); MONOCYTES 7.8 % (2-11); NEUTROPHILS 61.6 % (40-80); PLATELET COUNT 175 10x3/uL (130-400); RBC 4.28 10x6/uL (4.00-5.40); RDW 13.8 % (11.5-14.5); WBC 6.2 10x3/uL (4.8-10.8)
[2017-07-23 14:09] LABS: ALBUMIN 3.4 g/dL (3.4-5.0); ALKALINE PHOSPHATASE 86 U/L (46-116); ALT (SGPT) 31 U/L (10-68); BILIRUBIN - TOTAL 0.59 mg/dL (0.2-1.3); CALC OSMOLALITY 277 mosm/kg (275-300); CALCIUM 9.6 mg/dL (8.5-10.1); CARBON DIOXIDE 26.7 mmol/L (21.0-32.0); CHLORIDE - SERUM 104 mmol/L (98-107); CREATININE - SERUM 0.8 mg/dL (0.6-1.3); GLUCOSE 93 mg/dL (74-106); PROTEIN - SERUM 6.8 g/dL (6.4-8.2); SODIUM 138 mmol/L (136-145); UREA NITROGEN 17 mg/dL (7-18); eGFR NON AFRICAN AMERICAN 74 mL/min (90-120)
[2017-07-23 14:18] LABS: CREATINE KINASE 117 UL (21-215); PRO BNP 240 pg/mL (0-450)
[2017-07-23 14:21] LABS: TROPONIN-I < 0.017 ng/mL (0.000-0.060)
== END 2017-07-23 16:13 | disposition home or self-care (01) ==
LOC: D.ER 13:18
PROVIDERS: Emergency Medicine
DX: R06.00 Dyspnea, unspecified (principal); J44.9 Chronic obstructive pulmonary disease, unspecified; I10 Essential (primary) hypertension

== ENCOUNTER 2017-07-24 09:00 | Emergency (ER) | payer MEDICARE, OTHER ==
[2017-07-24 09:35] LABS: BASOPHILS 0.1 % (0-2); EOSINOPHILS 0.1 % (0-7); HEMATOCRIT 40.9 % (36.0-48.0); HEMOGLOBIN 13.6 g/dL (12-16); IMMATURE GRANULOCYTES 0.3 % (0-5); LYMPHOCYTES 4.9 % (15-50); MCH 31.1 pg (26.0-34.0); MCHC 33.3 g/dL (31.0-37.0); MCV 93.4 fL (80.0-100.0); MEAN PLATELET VOLUME 10.4 fL (7.4-10.4); MONOCYTES 4.2 % (2-11); NEUTROPHILS 90.4 % (40-80); PLATELET COUNT 205 10x3/uL (130-400); RBC 4.38 10x6/uL (4.00-5.40); RDW 13.4 % (11.5-14.5)
[2017-07-24 09:58] LABS: WBC 11.6 10x3/uL (4.8-10.8)
[2017-07-24 10:01] LABS: ALBUMIN 3.4 g/dL (3.4-5.0); ANION GAP 13.3 mmol/L (8-16); BILIRUBIN - TOTAL 0.58 mg/dL (0.2-1.3); CALCIUM 9.4 mg/dL (8.5-10.1); CARBON DIOXIDE 24.8 mmol/L (21.0-32.0); CREATININE - SERUM 0.9 mg/dL (0.6-1.3); POTASSIUM - SERUM 4.1 mmol/L (3.5-5.1)
== END 2017-07-24 12:29 | disposition home or self-care (01) ==
LOC: D.ER 09:00
PROVIDERS: Emergency Medicine
DX: J44.1 Chronic obstructive pulmonary disease with (acute) exacerbation (principal); I10 Essential (primary) hypertension

== ENCOUNTER 2017-08-28 08:12 | Inpatient (IN) | payer MEDICARE, OTHER ==
[~2017-08-28] VITALS: Ht 157.5 cm; Wt 90.7 kg
[2017-08-28 09:51] LABS: BASOPHILS 0.1 % (0-2); EOSINOPHILS 0.2 % (0-7); HEMATOCRIT 44.2 % (36.0-48.0); HEMOGLOBIN 14.7 g/dL (12-16); IMMATURE GRANULOCYTES 0.5 % (0-5); LYMPHOCYTES 12.6 % (15-50); MCH 30.8 pg (26.0-34.0); MCHC 33.3 g/dL (31.0-37.0); MCV 92.5 fL (80.0-100.0); MEAN PLATELET VOLUME 10.6 fL (7.4-10.4); MONOCYTES 6.5 % (2-11); NEUTROPHILS 80.1 % (40-80); RBC 4.78 10x6/uL (4.00-5.40); RDW 13.3 % (11.5-14.5); WBC 10.2 10x3/uL (4.8-10.8)
[2017-08-28 09:52] LABS: PLATELET COUNT 251 10x3/uL (130-400)
[2017-08-28 09:58] LABS: ALBUMIN 3.8 g/dL (3.4-5.0); ANION GAP 12.9 mmol/L (8-16); BILIRUBIN - TOTAL 0.6 mg/dL (0.2-1.3); CALCIUM 10.1 mg/dL (8.5-10.1); CARBON DIOXIDE 25.9 mmol/L (21.0-32.0); CREATININE - SERUM 0.8 mg/dL (0.6-1.3); POTASSIUM - SERUM 3.8 mmol/L (3.5-5.1); PROTEIN - SERUM 7.4 g/dL (6.4-8.2)
[2017-08-28 10:30] LABS: APPEARANCE CLEAR (CLEAR); BILIRUBIN NEGATIVE (NEGATIVE); COLOR YELLOW (YELLOW); GLUCOSE NEGATIVE (NEGATIVE); KETONE NEGATIVE (NEGATIVE); NITRITE NEGATIVE (NEGATIVE); PROTEIN NEGATIVE (NEGATIVE); SPECIFIC GRAVITY 1.015 (1.005-1.020); UROBILINOGEN NORMAL (NORMAL)
[2017-08-28 10:31] LABS: BACTERIA FEW /hpf (NONE SEEN); EPITHELIAL CELLS 0-5 /hpf (0-5); RED CELLS - URINE OCC /hpf (0-5); WHITE CELLS - URINE 0-5 /hpf (0-5)
[2017-08-28] MEDS ORDERED: MEDROL DOSE PACK4 MG PO (13:35)
[2017-08-28 13:39] VITALS: BP 158/77; BMI 36.6
[2017-08-28 17:04] VITALS: BP 158/77
[2017-08-28 20:00] VITALS: BP 145/68
[2017-08-29 04:00] VITALS: BP 139/66
[2017-08-29 06:11] LABS: BASOPHILS 0.2 % (0-2); EOSINOPHILS 3.5 % (0-7); HEMATOCRIT 41.5 % (36.0-48.0); HEMOGLOBIN 13.7 g/dL (12-16); IMMATURE GRANULOCYTES 0.6 % (0-5); LYMPHOCYTES 10.9 % (15-50); MCH 30.8 pg (26.0-34.0); MCV 93.3 fL (80.0-100.0); MEAN PLATELET VOLUME 10.3 fL (7.4-10.4); MONOCYTES 2.9 % (2-11); NEUTROPHILS 81.9 % (40-80); PLATELET COUNT 233 10x3/uL (130-400); RBC 4.45 10x6/uL (4.00-5.40); RDW 13.4 % (11.5-14.5); WBC 8.3 10x3/uL (4.8-10.8)
[2017-08-29 06:39] LABS: CALCIUM 9.4 mg/dL (8.5-10.1); CARBON DIOXIDE 23.1 mmol/L (21.0-32.0); CREATININE - SERUM 0.9 mg/dL (0.6-1.3); POTASSIUM - SERUM 4.1 mmol/L (3.5-5.1)
[2017-08-29 08:16] VITALS: BP 137/56
[2017-08-29 12:57] VITALS: BP 184/78
[2017-08-29 13:49] VITALS: BMI 36.6
[2017-08-29 15:36] VITALS: Ht 157.5 cm; Wt 90.7 kg
[2017-08-29 16:14] VITALS: BP 185/72
[2017-08-29 20:00] VITALS: BP 123/66
[2017-08-30] VITALS: BP 154/67
[2017-08-30 04:00] VITALS: BP 122/84
[2017-08-30 09:03] VITALS: BP 156/63
[2017-08-30] MEDS ORDERED: LEVAQUIN750 MG PO (16:26)
== END 2017-08-30 17:10 | disposition home or self-care (01) | DRG 193 ==
LOC: D.ER 08:12 → D.MS 11:46
PROVIDERS: Emergency Medicine; Internal Medicine Pulmonary Disease
DX: J18.9 Pneumonia, unspecified organism (principal); J96.21 Acute and chronic respiratory failure with hypoxia; J44.1 Chronic obstructive pulmonary disease with (acute) exacerbation; J98.11 Atelectasis; J44.0 Chronic obstructive pulmonary disease with (acute) lower respiratory infection; I25.10 Atherosclerotic heart disease of native coronary artery without angina pectoris; I10 Essential (primary) hypertension; E03.9 Hypothyroidism, unspecified; G47.33 Obstructive sleep apnea (adult) (pediatric); E83.39 Other disorders of phosphorus metabolism

== ENCOUNTER → 2017-09-18 08:27 | Outpatient (CLI) | payer MEDICARE, OTHER ==
[2017-08-29 15:36] VITALS: BMI 36.6
--- NOTE | ~2017-09-18 | EC ---
PATIENT:SHI SERRANO DATE OF SERVICE: 09/18/17 SEX: F MEDICAL RECORD: [id number] DATE OF : 42 LOCATION:D[facility] AGE OF PATIENT: 77 ADMISSION DATE: 09/18/17 REFERRING PHYSICIAN: INTERPRETING PHYSICIAN: LETICIA MARTINEZ MD ECHOCARDIOGRAM REPORT ECHO CHARGES 4 ECHO COMPLETE CLINICAL DIAGNOSIS: AI/CHF ECHOCARDIOGRAPHIC MEASUREMENTS (adult normal given) AC root (d.<3.7cm) 2.9 cm LV Septum d (<1.2 cm> 1.3 cm Valve Excursion 1.7 cm LV Septum (systole) 1.5 cm Left Atria (s.<4.0cm> 3.9 cm LVPW d(<1.2cm) 1.4 cm RV (d.<2.3cm) 3.4 cm LVPW (sytole) 1.6 cm LV diastole(<5.6CM) 3.7 cm MV E-F(>70mm/sec) cm LV systole 2.6 cm LVOT Diameter 1.5 cm MV exc.(>10mm) cm Est.ejection fraction (50-75%) % Pericardial Effusion N DOPPLER: LVIT cm/sec A 113 cm/sec E 86.0 cm/sec LA cm/sec RVSP 41 mmHg LVOT 136 cm/sec AOP1/2T m/s Asc. Ao 191 cm/sec RVOT 94 cm/sec RA cm/sec PA 133 cm/sec AV Gradient Peak 14.65mmHg AV Mean 8.04 mmHg AV Area 1.3 cm MV Gradient Peak 7.26 mmHg MV Mean 2.79 mmHg MV Area cm COMMENTS: Senior Account Executive: 2 VEE KOHLER Textile Screen Maker: 4 Dr. Martinez TAPE# PACS DATE OF SERVICE: 09/18/2017 PROCEDURE: Transthoracic echocardiogram. FINDINGS: 1. The left ventricle shows concentric left ventricular hypertrophy with inflow characteristics consistent with diastolic dysfunction. Ejection fraction of 65% to 70%. No obvious regional wall motion abnormalities. 2. The right ventricle is mildly thickened and mildly dilated, but normal function. ECHOCARDIOGRAM REPORT [id number] SHI SERRANO 3. The left atrium is normal size and normal function. 4. The aortic valve is sclerotic, has thickened leaflets, but no evidence of aortic stenosis or significant regurgitation. 5. The mitral valve has trace mitral regurgitation. There is mitral annular calcification. 6. The tricuspid valve is structurally normal with trace tricuspid regurgitation. RVSP appears to be normal. 7. The pulmonic valve has trace pulmonic insufficiency. 8. The right atrium is normal size, normal function. CONCLUSIONS: The patient has evidence of hypertensive heart disease, diastolic dysfunction, and mild aortic sclerosis without stenosis. TRANSINT:[id number] Voice Confirmation ID: [id number] DOCUMENT ID: [id number] LETICIA MARTINEZ MD at 1020 CC: [id number] DICTATION DATE: 09/22/17 1125 ELECTROENCEPHALOGRAPH TECHNICIAN: 09/22/17 1356 DEP CLI 09/18/17 [facility] [address] [place] [address]
[~2017-09-18 08:27] MED LIST changes: +LEVAQUIN750 MG PO; +MEDROL DOSE PACK4 MG PO
== END | disposition home or self-care (01) ==
LOC: D.ECHO 08:27
DX: I50.9 Heart failure, unspecified (principal)

== ENCOUNTER 2017-09-30 16:23 | Emergency (ER) | payer MEDICARE, OTHER ==
[2017-08-29 15:36] VITALS: BMI 36.6
[2017-09-30 16:59] LABS: BASOPHILS 0.6 % (0-2); EOSINOPHILS 9.9 % (0-7); HEMATOCRIT 40.9 % (36.0-48.0); HEMOGLOBIN 13.4 g/dL (12-16); IMMATURE GRANULOCYTES 0.3 % (0-5); LYMPHOCYTES 26.5 % (15-50); MCHC 32.8 g/dL (31.0-37.0); MCV 91.5 fL (80.0-100.0); MEAN PLATELET VOLUME 10.1 fL (7.4-10.4); MONOCYTES 8.1 % (2-11); NEUTROPHILS 54.6 % (40-80); PLATELET COUNT 206 10x3/uL (130-400); RBC 4.47 10x6/uL (4.00-5.40); RDW 13.5 % (11.5-14.5); WBC 7.2 10x3/uL (4.8-10.8)
[2017-09-30 17:21] LABS: ALBUMIN 3.7 g/dL (3.4-5.0); ANION GAP 12.8 mmol/L (8-16); BILIRUBIN - TOTAL 0.6 mg/dL (0.2-1.3); CALCIUM 8.9 mg/dL (8.5-10.1); CARBON DIOXIDE 26.9 mmol/L (21.0-32.0); CREATININE - SERUM 0.9 mg/dL (0.6-1.3); POTASSIUM - SERUM 3.7 mmol/L (3.5-5.1); PROTEIN - SERUM 7.2 g/dL (6.4-8.2)
== END 2017-09-30 22:06 | disposition home or self-care (01) ==
LOC: D.ER 16:23
PROVIDERS: Physician Assistant
DX: J44.1 Chronic obstructive pulmonary disease with (acute) exacerbation (principal); Z86.79 Personal history of other diseases of the circulatory system; I10 Essential (primary) hypertension

== ENCOUNTER → 2017-10-03 07:22 | Outpatient (CLI) | payer MEDICARE, OTHER ==
[2017-08-29 15:36] VITALS: BMI 36.6
== END | disposition home or self-care (01) ==
LOC: D.RT 07:22
DX: J44.9 Chronic obstructive pulmonary disease, unspecified (principal)

== ENCOUNTER 2017-10-15 17:59 | Emergency (ER) | payer MEDICARE, OTHER ==
[2017-08-29 15:36] VITALS: BMI 36.6
[2017-10-15 18:38] LABS: BASOPHILS 0.3 % (0-2); EOSINOPHILS 12.4 % (0-7); HEMATOCRIT 39.7 % (36.0-48.0); IMMATURE GRANULOCYTES 0.2 % (0-5); LYMPHOCYTES 18.1 % (15-50); MCH 30.2 pg (26.0-34.0); MCHC 32.7 g/dL (31.0-37.0); MCV 92.3 fL (80.0-100.0); MEAN PLATELET VOLUME 10.9 fL (7.4-10.4); MONOCYTES 7.3 % (2-11); NEUTROPHILS 61.7 % (40-80); PLATELET COUNT 188 10x3/uL (130-400); RDW 13.8 % (11.5-14.5); WBC 10.4 10x3/uL (4.8-10.8)
[2017-10-15 19:01] LABS: ALBUMIN 3.8 g/dL (3.4-5.0); ANION GAP 15.4 mmol/L (8-16); BILIRUBIN - TOTAL 0.55 mg/dL (0.2-1.3); CALCIUM 9.5 mg/dL (8.5-10.1); CARBON DIOXIDE 24.4 mmol/L (21.0-32.0); CREATININE - SERUM 0.8 mg/dL (0.6-1.3); POTASSIUM - SERUM 3.8 mmol/L (3.5-5.1); PROTEIN - SERUM 7.2 g/dL (6.4-8.2)
== END 2017-10-15 21:11 | disposition home or self-care (01) ==
LOC: D.ER 17:59
PROVIDERS: Emergency Medicine
DX: J45.901 Unspecified asthma with (acute) exacerbation (principal); J01.90 Acute sinusitis, unspecified

== ENCOUNTER 2017-11-12 09:30 | Emergency (ER) | payer MEDICARE, OTHER ==
[2017-08-29 15:36] VITALS: BMI 36.6
[2017-11-12 10:14] LABS: BASOPHILS 0.7 % (0-2); HEMATOCRIT 39.2 % (36.0-48.0); HEMOGLOBIN 12.8 g/dL (12-16); LYMPHOCYTES 28.1 % (15-50); MCH 29.6 pg (26.0-34.0); MCHC 32.7 g/dL (31.0-37.0); MCV 90.5 fL (80.0-100.0); MEAN PLATELET VOLUME 9.8 fL (7.4-10.4); MONOCYTES 7.6 % (2-11); NEUTROPHILS 53.6 % (40-80); PLATELET COUNT 210 10x3/uL (130-400); RBC 4.33 10x6/uL (4.00-5.40); WBC 5.4 10x3/uL (4.8-10.8)
[2017-11-12 10:47] LABS: ALBUMIN 3.4 g/dL (3.4-5.0); ALKALINE PHOSPHATASE 103 U/L (46-116); ALT (SGPT) 30 U/L (10-68); BILIRUBIN - TOTAL 0.83 mg/dL (0.2-1.3); CALC OSMOLALITY 281 mosm/kg (275-300); CALCIUM 9.3 mg/dL (8.5-10.1); CARBON DIOXIDE 26.9 mmol/L (21.0-32.0); CHLORIDE - SERUM 105 mmol/L (98-107); CREATININE - SERUM 0.8 mg/dL (0.6-1.3); GLUCOSE 100 mg/dL (74-106); POTASSIUM - SERUM 3.6 mmol/L (3.5-5.1); PROTEIN - SERUM 6.8 g/dL (6.4-8.2); SODIUM 141 mmol/L (136-145); UREA NITROGEN 16 mg/dL (7-18); eGFR NON AFRICAN AMERICAN 74 mL/min (90-120)
[2017-11-12 10:48] LABS: CREATINE KINASE 78 UL (21-215); MAGNESIUM - SERUM 2.1 mg/dL (1.8-2.4); PRO BNP 95 pg/mL (0-450); THYROID STIMULATING HORMONE 1.73 uIU/mL (0.36-3.74)
[2017-11-12 10:51] LABS: TROPONIN-I < 0.017 ng/mL (0.000-0.060)
== END 2017-11-12 13:14 | disposition home or self-care (01) ==
LOC: D.ER 09:30
PROVIDERS: Emergency Medicine
DX: R06.00 Dyspnea, unspecified (principal); J44.1 Chronic obstructive pulmonary disease with (acute) exacerbation; I10 Essential (primary) hypertension; F17.200 Nicotine dependence, unspecified, uncomplicated

== ENCOUNTER 2017-11-17 13:48 | Emergency (ER) | payer MEDICARE, OTHER ==
[2017-08-29 15:36] VITALS: BMI 36.6
[2017-11-17 15:08] LABS: BASOPHILS 0.6 % (0-2); EOSINOPHILS 16.1 % (0-7); HEMATOCRIT 41.1 % (36.0-48.0); HEMOGLOBIN 13.4 g/dL (12-16); IMMATURE GRANULOCYTES 0.2 % (0-5); LYMPHOCYTES 21.6 % (15-50); MCHC 32.6 g/dL (31.0-37.0); MCV 92.2 fL (80.0-100.0); MEAN PLATELET VOLUME 10.7 fL (7.4-10.4); MONOCYTES 9.1 % (2-11); NEUTROPHILS 52.4 % (40-80); PLATELET COUNT 249 10x3/uL (130-400); RBC 4.46 10x6/uL (4.00-5.40); RDW 14.2 % (11.5-14.5); WBC 8.6 10x3/uL (4.8-10.8)
[2017-11-17 15:22] LABS: ALBUMIN 3.8 g/dL (3.4-5.0); ALKALINE PHOSPHATASE 112 U/L (46-116); ALT (SGPT) 29 U/L (10-68); BILIRUBIN - TOTAL 0.66 mg/dL (0.2-1.3); CALC OSMOLALITY 287 mosm/kg (275-300); CALCIUM 9.4 mg/dL (8.5-10.1); CARBON DIOXIDE 26.2 mmol/L (21.0-32.0); CHLORIDE - SERUM 107 mmol/L (98-107); CREATININE - SERUM 0.9 mg/dL (0.6-1.3); GLUCOSE 96 mg/dL (74-106); POTASSIUM - SERUM 4.1 mmol/L (3.5-5.1); PROTEIN - SERUM 7.6 g/dL (6.4-8.2); SODIUM 144 mmol/L (136-145); UREA NITROGEN 14 mg/dL (7-18); eGFR NON AFRICAN AMERICAN 64 mL/min (90-120)
[2017-11-17 15:31] LABS: PRO BNP 157 pg/mL (0-450)
[2017-11-17 15:36] LABS: TROPONIN-I < 0.017 ng/mL (0.000-0.060)
== END 2017-11-17 17:50 | disposition home or self-care (01) ==
LOC: D.ER 13:48
PROVIDERS: Physician Assistant
DX: J40 Bronchitis, not specified as acute or chronic (principal); J44.1 Chronic obstructive pulmonary disease with (acute) exacerbation; Z86.79 Personal history of other diseases of the circulatory system; R09.02 Hypoxemia

== ENCOUNTER 2017-12-01 14:54 | Emergency (ER) | payer MEDICARE, OTHER ==
[2017-08-29 15:36] VITALS: BMI 36.6
[2017-12-01 15:27] LABS: BASOPHILS 0.6 % (0-2); EOSINOPHILS 13.6 % (0-7); HEMATOCRIT 38.8 % (36.0-48.0); HEMOGLOBIN 12.6 g/dL (12-16); IMMATURE GRANULOCYTES 0.2 % (0-5); LYMPHOCYTES 12.5 % (15-50); MCH 30.1 pg (26.0-34.0); MCHC 32.5 g/dL (31.0-37.0); MCV 92.6 fL (80.0-100.0); MEAN PLATELET VOLUME 10.5 fL (7.4-10.4); MONOCYTES 8.8 % (2-11); NEUTROPHILS 64.3 % (40-80); RBC 4.19 10x6/uL (4.00-5.40); RDW 14.1 % (11.5-14.5); WBC 8.8 10x3/uL (4.8-10.8)
[2017-12-01 15:42] LABS: ALBUMIN 3.4 g/dL (3.4-5.0); ALKALINE PHOSPHATASE 83 U/L (46-116); ALT (SGPT) 29 U/L (10-68); BILIRUBIN - TOTAL 0.47 mg/dL (0.2-1.3); CALC OSMOLALITY 278 mosm/kg (275-300); CALCIUM 9.2 mg/dL (8.5-10.1); CARBON DIOXIDE 23.6 mmol/L (21.0-32.0); CHLORIDE - SERUM 105 mmol/L (98-107); GLUCOSE 106 mg/dL (74-106); POTASSIUM - SERUM 4.2 mmol/L (3.5-5.1); SODIUM 140 mmol/L (136-145); UREA NITROGEN 13 mg/dL (7-18); eGFR NON AFRICAN AMERICAN 57 mL/min (90-120)
[2017-12-01 15:49] LABS: PLATELET COUNT 189 10x3/uL (130-400)
[2017-12-01 16:05] LABS: CHOL - HDL RATIO 2.8 ratio (2.3-4.1); CHOLESTEROL, TOTAL 227 mg/dL (0-200); CKMB 1.9 U/L (0.0-3.6); CREATINE KINASE 95 UL (21-215); HDL CHOLESTEROL 82 mg/dL (32-96); LDL CHOLESTEROL 92 mg/dL (0-100); LDL-HDL RATIO 1.1 ratio (1.5-3.5); PRO BNP 184 pg/mL (0-450); TRIGLYCERIDE 267 mg/dL (30-200)
[2017-12-01 16:06] LABS: TROPONIN-I < 0.017 ng/mL (0.000-0.060)
== END 2017-12-01 16:16 | disposition home or self-care (01) ==
LOC: D.ER 14:54
PROVIDERS: Emergency Medicine
DX: R07.89 Other chest pain (principal); Z86.79 Personal history of other diseases of the circulatory system; J44.9 Chronic obstructive pulmonary disease, unspecified; E07.9 Disorder of thyroid, unspecified

== ENCOUNTER → 2017-12-05 09:54 | Outpatient (CLI) | payer MEDICARE, OTHER ==
[2017-08-29 15:36] VITALS: BMI 36.6
== END | disposition home or self-care (01) ==
LOC: D.LABREF 09:54
DX: I50.9 Heart failure, unspecified (principal)

== ENCOUNTER 2017-12-24 22:52 | Emergency (ER) | payer MEDICARE, OTHER ==
[2017-08-29 15:36] VITALS: BMI 36.6
[2017-12-24 23:54] LABS: HEMATOCRIT 36.9 % (36.0-48.0); HEMOGLOBIN 12.4 g/dL (12-16); LYMPHOCYTES 22.8 % (15-50); MCH 29.5 pg (26.0-34.0); MCHC 33.6 g/dL (31.0-37.0); MCV 87.9 fL (80.0-100.0); MEAN PLATELET VOLUME 9.3 fL (7.4-10.4); NEUTROPHILS 64.1 % (40-80); PLATELET COUNT 198 10x3/uL (130-400); RDW 13.5 % (11.5-14.5); WBC 6.9 10x3/uL (4.8-10.8)
[2017-12-25 00:18] LABS: ALBUMIN 3.5 g/dL (3.4-5.0); ALKALINE PHOSPHATASE 84 U/L (46-116); ALT (SGPT) 34 U/L (10-68); BILIRUBIN - TOTAL 0.49 mg/dL (0.2-1.3); CALC OSMOLALITY 279 mosm/kg (275-300); CALCIUM 9.8 mg/dL (8.5-10.1); CARBON DIOXIDE 23.3 mmol/L (21.0-32.0); CHLORIDE - SERUM 105 mmol/L (98-107); GLUCOSE 106 mg/dL (74-106); PROTEIN - SERUM 7.2 g/dL (6.4-8.2); SODIUM 139 mmol/L (136-145); UREA NITROGEN 19 mg/dL (7-18); eGFR NON AFRICAN AMERICAN 57 mL/min (90-120)
[2017-12-25 00:20] LABS: CREATINE KINASE 69 UL (21-215); MAGNESIUM - SERUM 2.2 mg/dL (1.8-2.4); PRO BNP 100 pg/mL (0-450)
[2017-12-25 00:23] LABS: TROPONIN-I < 0.017 ng/mL (0.000-0.060)
== END 2017-12-25 01:30 | disposition home or self-care (01) ==
LOC: D.ER 22:52
PROVIDERS: Emergency Medicine
DX: R06.00 Dyspnea, unspecified (principal); J44.1 Chronic obstructive pulmonary disease with (acute) exacerbation

== ENCOUNTER 2017-12-29 08:01 | Emergency (ER) | payer MEDICARE, OTHER ==
[2017-08-29 15:36] VITALS: BMI 36.6
[2017-12-29 08:45] LABS: BASOPHILS 0.2 % (0-2); EOSINOPHILS 12.8 % (0-7); HEMATOCRIT 38.9 % (36.0-48.0); IMMATURE GRANULOCYTES 0.2 % (0-5); LYMPHOCYTES 21.3 % (15-50); MCHC 33.4 g/dL (31.0-37.0); MCV 89.6 fL (80.0-100.0); MONOCYTES 8.5 % (2-11); PLATELET COUNT 199 10x3/uL (130-400); RBC 4.34 10x6/uL (4.00-5.40); RDW 13.7 % (11.5-14.5); WBC 6.2 10x3/uL (4.8-10.8)
[2017-12-29 09:03] LABS: ALBUMIN 3.5 g/dL (3.4-5.0); ALKALINE PHOSPHATASE 81 U/L (46-116); ALT (SGPT) 32 U/L (10-68); CALC OSMOLALITY 285 mosm/kg (275-300); CALCIUM 9.4 mg/dL (8.5-10.1); CHLORIDE - SERUM 107 mmol/L (98-107); CREATININE - SERUM 0.9 mg/dL (0.6-1.3); GLUCOSE 98 mg/dL (74-106); POTASSIUM - SERUM 3.8 mmol/L (3.5-5.1); PROTEIN - SERUM 6.8 g/dL (6.4-8.2); SODIUM 142 mmol/L (136-145); UREA NITROGEN 20 mg/dL (7-18); eGFR NON AFRICAN AMERICAN 64 mL/min (90-120)
[2017-12-29 09:15] LABS: CKMB 1.2 U/L (0.0-3.6); CREATINE KINASE 48 UL (21-215); PRO BNP 138 pg/mL (0-450); TROPONIN-I < 0.017 ng/mL (0.000-0.060)
== END 2017-12-29 10:30 | disposition home or self-care (01) ==
LOC: D.ER 08:01
PROVIDERS: Family Medicine
DX: J44.1 Chronic obstructive pulmonary disease with (acute) exacerbation (principal)

== ENCOUNTER 2018-01-18 12:08 | Emergency (ER) | payer MEDICARE, OTHER ==
[2017-08-29 15:36] VITALS: BMI 36.6
[2018-01-18 12:51] LABS: BASOPHILS 0.2 % (0-2); EOSINOPHILS 11.6 % (0-7); HEMATOCRIT 37.2 % (36.0-48.0); HEMOGLOBIN 12.3 g/dL (12-16); IMMATURE GRANULOCYTES 0.2 % (0-5); LYMPHOCYTES 23.7 % (15-50); MCH 29.9 pg (26.0-34.0); MCHC 33.1 g/dL (31.0-37.0); MCV 90.3 fL (80.0-100.0); NEUTROPHILS 58.3 % (40-80); PLATELET COUNT 175 10x3/uL (130-400); RBC 4.12 10x6/uL (4.00-5.40); RDW 13.9 % (11.5-14.5); WBC 5.9 10x3/uL (4.8-10.8)
[2018-01-18 12:55] LABS: ALBUMIN 3.2 g/dL (3.4-5.0); ALKALINE PHOSPHATASE 101 U/L (46-116); ALT (SGPT) 33 U/L (10-68); BILIRUBIN - TOTAL 0.68 mg/dL (0.2-1.3); CALC OSMOLALITY 279 mosm/kg (275-300); CALCIUM 9.4 mg/dL (8.5-10.1); CARBON DIOXIDE 27.8 mmol/L (21.0-32.0); CHLORIDE - SERUM 108 mmol/L (98-107); CREATININE - SERUM 0.8 mg/dL (0.6-1.3); GLUCOSE 101 mg/dL (74-106); PROTEIN - SERUM 6.6 g/dL (6.4-8.2); SODIUM 141 mmol/L (136-145); UREA NITROGEN 11 mg/dL (7-18); eGFR NON AFRICAN AMERICAN 74 mL/min (90-120)
[2018-01-18 13:10] LABS: CKMB 1.3 U/L (0.0-3.6); CREATINE KINASE 61 UL (21-215); PRO BNP 174 pg/mL (0-450); TROPONIN-I < 0.017 ng/mL (0.000-0.060)
== END 2018-01-18 14:39 | disposition home or self-care (01) ==
LOC: D.ER 12:08
PROVIDERS: Emergency Medicine
DX: J44.1 Chronic obstructive pulmonary disease with (acute) exacerbation (principal); R06.00 Dyspnea, unspecified; R00.1 Bradycardia, unspecified

== ENCOUNTER 2018-02-04 02:05 | Emergency (ER) | payer MEDICARE, OTHER ==
[~2018-02-04] VITALS: Ht 157.5 cm; Wt 93.6 kg
[2018-02-04 02:06] VITALS: Ht 157.5 cm; Wt 93.6 kg
[2018-02-04] MEDS ORDERED: ZOLOFT50 MG PO (02:10)
[2018-02-04 03:12] LABS: BASOPHILS 0.2 % (0-2); EOSINOPHILS 7.1 % (0-7); HEMATOCRIT 37.7 % (36.0-48.0); HEMOGLOBIN 12.4 g/dL (12-16); IMMATURE GRANULOCYTES 0.2 % (0-5); LYMPHOCYTES 14.9 % (15-50); MCHC 32.9 g/dL (31.0-37.0); MCV 91.1 fL (80.0-100.0); MEAN PLATELET VOLUME 10.3 fL (7.4-10.4); MONOCYTES 6.3 % (2-11); NEUTROPHILS 71.3 % (40-80); PLATELET COUNT 177 10x3/uL (130-400); RBC 4.14 10x6/uL (4.00-5.40); WBC 9.6 10x3/uL (4.8-10.8)
[2018-02-04 03:27] LABS: ALBUMIN 3.4 g/dL (3.4-5.0); ALKALINE PHOSPHATASE 81 U/L (46-116); ALT (SGPT) 30 U/L (10-68); CALC OSMOLALITY 287 mosm/kg (275-300); CALCIUM 9.3 mg/dL (8.5-10.1); CARBON DIOXIDE 28.8 mmol/L (21.0-32.0); CHLORIDE - SERUM 105 mmol/L (98-107); CREATININE - SERUM 0.9 mg/dL (0.6-1.3); GLUCOSE 109 mg/dL (74-106); POTASSIUM - SERUM 3.6 mmol/L (3.5-5.1); PROTEIN - SERUM 6.6 g/dL (6.4-8.2); SODIUM 143 mmol/L (136-145); UREA NITROGEN 17 mg/dL (7-18); eGFR NON AFRICAN AMERICAN 64 mL/min (90-120)
[2018-02-04 03:38] LABS: CKMB 2.1 U/L (0.0-3.6); CREATINE KINASE 69 UL (21-215); PRO BNP 67 pg/mL (0-450)
[2018-02-04] MEDS ORDERED: MEDROL DOSE PACK4 MG PO (03:49)
[2018-02-04] MEDS ORDERED: PULMICORT0.5 MG/21 INH (03:49)
[2018-02-04 04:52] VITALS: BP 137/83
== END 2018-02-04 04:52 | disposition home or self-care (01) ==
LOC: D.ER 02:05
PROVIDERS: Emergency Medicine
DX: J44.9 Chronic obstructive pulmonary disease, unspecified (principal); E07.9 Disorder of thyroid, unspecified; I10 Essential (primary) hypertension; Z85.828 Personal history of other malignant neoplasm of skin

== ENCOUNTER 2018-04-20 15:58 | Inpatient (IN) | payer MEDICARE, OTHER ==
[~2018-04-20] VITALS: Ht 157.5 cm; Wt 90.7 kg
[~2018-04-20 15:58] MED LIST changes: +PULMICORT0.5 MG/21 INH; -SYNTHROID75 MCG PO; +SYNTHROID88 MCG PO; +ZOLOFT50 MG PO
[2018-04-20 17:11] VITALS: BP 193/94
[2018-04-20 17:20] LABS: BASOPHILS 0.3 % (0-2); EOSINOPHILS 12.2 % (0-7); HEMATOCRIT 44.2 % (36.0-48.0); HEMOGLOBIN 14.3 g/dL (12-16); IMMATURE GRANULOCYTES 0.1 % (0-5); LYMPHOCYTES 10.9 % (15-50); MCH 28.5 pg (26.0-34.0); MCHC 32.4 g/dL (31.0-37.0); MCV 88.2 fL (80.0-100.0); MEAN PLATELET VOLUME 9.7 fL (7.4-10.4); MONOCYTES 4.3 % (2-11); NEUTROPHILS 72.2 % (40-80); PLATELET COUNT 157 10x3/uL (130-400); RBC 5.01 10x6/uL (4.00-5.40); RDW 13.9 % (11.5-14.5); WBC 6.8 10x3/uL (4.8-10.8)
[2018-04-20 17:38] LABS: ALBUMIN 3.7 g/dL (3.4-5.0); ANION GAP 12.7 mmol/L (8-16); BILIRUBIN - TOTAL 0.75 mg/dL (0.2-1.3); CALCIUM 9.3 mg/dL (8.5-10.1); CARBON DIOXIDE 26.3 mmol/L (21.0-32.0); CREATININE - SERUM 0.9 mg/dL (0.6-1.3); PROTEIN - SERUM 7.3 g/dL (6.4-8.2)
[2018-04-20 18:11] VITALS: BP 196/85
[2018-04-20 19:00] VITALS: BP 156/96
[2018-04-20 20:14] VITALS: BP 159/81
[2018-04-21 00:37] VITALS: BP 130/60
[2018-04-21 02:38] VITALS: BP 130/60; BMI 36.6
[2018-04-21 05:29] VITALS: BP 122/67
[2018-04-21 07:16] LABS: APPEARANCE CLEAR (CLEAR); BILIRUBIN NEGATIVE (NEGATIVE); COLOR YELLOW (YELLOW); GLUCOSE NEGATIVE (NEGATIVE); KETONE NEGATIVE (NEGATIVE); NITRITE NEGATIVE (NEGATIVE); PROTEIN NEGATIVE (NEGATIVE); UROBILINOGEN NORMAL (NORMAL)
[2018-04-21 12:07] VITALS: BMI 36.6
[2018-04-21 13:06] VITALS: BP 157/71
[2018-04-21 14:56] VITALS: Ht 157.5 cm; Wt 90.7 kg
[2018-04-21 20:33] VITALS: BP 155/65
[2018-04-22 05:38] VITALS: BP 152/74
[2018-04-22 05:51] LABS: BASOPHILS 0 % (0-2); EOSINOPHILS 0 % (0-7); HEMOGLOBIN 11.5 g/dL (12-16); IMMATURE GRANULOCYTES 0.2 % (0-5); LYMPHOCYTES 3.6 % (15-50); MCH 28.7 pg (26.0-34.0); MEAN PLATELET VOLUME 10.3 fL (7.4-10.4); MONOCYTES 2.2 % (2-11); RBC 4.01 10x6/uL (4.00-5.40); RDW 13.9 % (11.5-14.5)
[2018-04-22 06:09] LABS: ANION GAP 8.7 mmol/L (8-16); CALCIUM 9.3 mg/dL (8.5-10.1); CARBON DIOXIDE 28.2 mmol/L (21.0-32.0); CREATININE - SERUM 0.9 mg/dL (0.6-1.3)
[2018-04-22 06:13] LABS: POTASSIUM - SERUM 4.9 mmol/L (3.5-5.1)
[2018-04-22 06:17] LABS: HEMATOCRIT 34.9 % (36.0-48.0); PLATELET COUNT 197 10x3/uL (130-400); WBC 13.5 10x3/uL (4.8-10.8)
[2018-04-22 14:48] VITALS: BP 164/84
[2018-04-22 20:00] VITALS: BP 163/79
[2018-04-23 04:00] VITALS: BP 158/80
[2018-04-23 05:28] LABS: BASOPHILS 0 % (0-2); EOSINOPHILS 0 % (0-7); HEMATOCRIT 35.8 % (36.0-48.0); HEMOGLOBIN 11.7 g/dL (12-16); IMMATURE GRANULOCYTES 0.3 % (0-5); LYMPHOCYTES 4.6 % (15-50); MCH 28.8 pg (26.0-34.0); MCHC 32.7 g/dL (31.0-37.0); MCV 88.2 fL (80.0-100.0); MONOCYTES 4.1 % (2-11); PLATELET COUNT 192 10x3/uL (130-400); RBC 4.06 10x6/uL (4.00-5.40); RDW 14.1 % (11.5-14.5); WBC 13.1 10x3/uL (4.8-10.8)
[2018-04-23 05:52] LABS: % SATURATION 9 % (15-55); IRON 32 ug/dl (35-150); TOTAL IRON BIND CAPACITY 328 ug/dl (260-445); UNSAT IRON BIND CAPACITY 296 ug/dl (150-375)
[2018-04-23 06:11] LABS: ANION GAP 12.5 mmol/L (8-16); CALCIUM 9.4 mg/dL (8.5-10.1); CARBON DIOXIDE 25.9 mmol/L (21.0-32.0); MAGNESIUM - SERUM 2.4 mg/dL (1.8-2.4); PHOSPHOROUS 3.4 mg/dL (2.5-4.9); POTASSIUM - SERUM 4.4 mmol/L (3.5-5.1)
[2018-04-23 09:03] VITALS: BP 153/67
[2018-04-23 12:11] VITALS: BP 159/75
== END 2018-04-23 14:09 | disposition home health service (06) | DRG 177 ==
LOC: D.ER 15:58 → D.M2 18:37 → D.EDHOLD 18:37 → D.M2 21:18
PROVIDERS: Emergency Medicine; Internal Medicine Nephrology; Internal Medicine Pulmonary Disease
DX: J15.6 Pneumonia due to other Gram-negative bacteria (principal); J96.22 Acute and chronic respiratory failure with hypercapnia; J96.21 Acute and chronic respiratory failure with hypoxia; J44.0 Chronic obstructive pulmonary disease with (acute) lower respiratory infection; J44.1 Chronic obstructive pulmonary disease with (acute) exacerbation; J98.11 Atelectasis; J13 Pneumonia due to Streptococcus pneumoniae; E78.5 Hyperlipidemia, unspecified; G47.33 Obstructive sleep apnea (adult) (pediatric); E03.9 Hypothyroidism, unspecified; I25.10 Atherosclerotic heart disease of native coronary artery without angina pectoris; I07.1 Rheumatic tricuspid insufficiency; I10 Essential (primary) hypertension; J30.9 Allergic rhinitis, unspecified; Z87.891 Personal history of nicotine dependence

== ENCOUNTER 2018-05-05 17:51 | Emergency (ER) | payer MEDICARE, OTHER ==
[~2018-05-05] VITALS: Ht 157.5 cm; Wt 90.9 kg
[2018-05-05 17:54] VITALS: Ht 157.5 cm; Wt 90.9 kg
[2018-05-05 18:24] LABS: BASOPHILS 0.1 % (0-2); EOSINOPHILS 5.5 % (0-7); HEMATOCRIT 35.7 % (36.0-48.0); HEMOGLOBIN 11.6 g/dL (12-16); IMMATURE GRANULOCYTES 0.4 % (0-5); LYMPHOCYTES 16.1 % (15-50); MCH 28.6 pg (26.0-34.0); MCHC 32.5 g/dL (31.0-37.0); MCV 87.9 fL (80.0-100.0); MEAN PLATELET VOLUME 10.2 fL (7.4-10.4); MONOCYTES 9.4 % (2-11); NEUTROPHILS 68.5 % (40-80); RBC 4.06 10x6/uL (4.00-5.40); RDW 14.2 % (11.5-14.5); WBC 7.3 10x3/uL (4.8-10.8)
[2018-05-05 18:26] LABS: PLATELET COUNT 144 10x3/uL (130-400)
[2018-05-05 18:52] LABS: ALBUMIN 3.1 g/dL (3.4-5.0); ALKALINE PHOSPHATASE 79 U/L (46-116); ALT (SGPT) 47 U/L (10-68); BILIRUBIN - TOTAL 0.38 mg/dL (0.2-1.3); CALC OSMOLALITY 284 mosm/kg (275-300); CHLORIDE - SERUM 106 mmol/L (98-107); CREATININE - SERUM 0.9 mg/dL (0.6-1.3); GLUCOSE 100 mg/dL (74-106); POTASSIUM - SERUM 4.3 mmol/L (3.5-5.1); PROTEIN - SERUM 6.4 g/dL (6.4-8.2); SODIUM 142 mmol/L (136-145); UREA NITROGEN 17 mg/dL (7-18); eGFR NON AFRICAN AMERICAN 64 mL/min (90-120)
[2018-05-05 19:03] LABS: AMYLASE - SERUM 64 U/L (25-115); CKMB 1.4 U/L (0.0-3.6); CREATINE KINASE 66 UL (21-215); LIPASE 123 U/L (73-393); PRO BNP 176 pg/mL (0-450)
[2018-05-05 19:08] LABS: TROPONIN-I < 0.017 ng/mL (0.000-0.060)
[2018-05-05 19:46] LABS: APPEARANCE HAZY (CLEAR); BILIRUBIN NEGATIVE (NEGATIVE); COLOR YELLOW (YELLOW); GLUCOSE NEGATIVE (NEGATIVE); KETONE NEGATIVE (NEGATIVE); NITRITE NEGATIVE (NEGATIVE); PROTEIN NEGATIVE (NEGATIVE); SPECIFIC GRAVITY 1.005 (1.005-1.020); UROBILINOGEN NORMAL (NORMAL)
[2018-05-05 19:47] LABS: BACTERIA MANY /hpf (NONE SEEN); EPITHELIAL CELLS 0-5 /hpf (0-5); RED CELLS - URINE 0-5 /hpf (0-5); WHITE CELLS - URINE 0-5 /hpf (0-5)
[2018-05-05 19:48] LABS: AMORPHOUS SEDIMENT >1+ /lpf (NONE SEEN)
[2018-05-05] MEDS ORDERED: ULTRAM50 MG PO (20:39)
[2018-05-05] MEDS ORDERED: CIPRO500 MG PO (20:39)
[2018-05-05] MEDS ORDERED: FLAGYL500 MG PO (20:39)
[2018-05-05 21:06] VITALS: BP 145/50
[2018-05-06] MEDS ORDERED: CALCIUM 500 + D1 TAB PO (02:37)
== END 2018-05-05 21:07 | disposition home or self-care (01) ==
LOC: D.ER 17:51
PROVIDERS: Family Medicine
DX: R10.84 Generalized abdominal pain (principal)

== ENCOUNTER 2018-05-06 00:38 | Inpatient (IN) | payer MEDICARE, OTHER ==
[~2018-05-06] VITALS: Ht 157.5 cm; Wt 90.7 kg
[~2018-05-06 00:38] MED LIST changes: +CIPRO500 MG PO; +FLAGYL500 MG PO; +ULTRAM50 MG PO
[2018-05-06] MEDS ORDERED: CALCIUM 500 + D1 TAB PO (02:37)
[2018-05-06 03:08] VITALS: BP 125/55; BMI 36.6
[2018-05-06 05:13] VITALS: BP 125/55
[2018-05-06 08:31] VITALS: BP 131/63
[2018-05-06 13:20] VITALS: BP 126/72; BP 152/71
[2018-05-06 14:36] VITALS: BMI 36.6
[2018-05-06 16:24] VITALS: BP 142/64
[2018-05-06 16:27] VITALS: Ht 157.5 cm; Wt 90.7 kg
[2018-05-06 20:12] VITALS: BP 130/62
[2018-05-07 05:21] VITALS: BP 126/63
[2018-05-07 05:24] LABS: BASOPHILS 0.1 % (0-2); EOSINOPHILS 2.4 % (0-7); HEMATOCRIT 32.9 % (36.0-48.0); HEMOGLOBIN 10.7 g/dL (12-16); IMMATURE GRANULOCYTES 0.2 % (0-5); LYMPHOCYTES 6.3 % (15-50); MCH 28.8 pg (26.0-34.0); MCHC 32.5 g/dL (31.0-37.0); MCV 88.7 fL (80.0-100.0); MEAN PLATELET VOLUME 10.8 fL (7.4-10.4); MONOCYTES 7.1 % (2-11); NEUTROPHILS 83.9 % (40-80); PLATELET COUNT 128 10x3/uL (130-400); RBC 3.71 10x6/uL (4.00-5.40); RDW 14.4 % (11.5-14.5); WBC 9.2 10x3/uL (4.8-10.8)
[2018-05-07 05:47] LABS: ALBUMIN 2.6 g/dL (3.4-5.0); ANION GAP 12.4 mmol/L (8-16); BILIRUBIN - TOTAL 0.45 mg/dL (0.2-1.3); CALCIUM 7.9 mg/dL (8.5-10.1); CARBON DIOXIDE 26.5 mmol/L (21.0-32.0); CREATININE - SERUM 0.8 mg/dL (0.6-1.3); POTASSIUM - SERUM 3.9 mmol/L (3.5-5.1); PROTEIN - SERUM 5.6 g/dL (6.4-8.2)
[2018-05-07 07:49] VITALS: BP 140/62
[2018-05-07 10:42] VITALS: BP 127/58
[2018-05-07] MEDS ORDERED: MIRALAX17 GM PO (14:09)
[2018-05-07 15:42] VITALS: BP 105/57
== END 2018-05-07 16:53 | disposition home health service (06) | DRG 389 ==
LOC: D.ER 00:38 → OBSVTIME 01:12 → D.EDHOLD 01:12 → D.MS 02:07
PROVIDERS: Family Medicine
DX: K56.7 Ileus, unspecified (principal); J96.11 Chronic respiratory failure with hypoxia; N39.0 Urinary tract infection, site not specified; K59.00 Constipation, unspecified; I10 Essential (primary) hypertension; E03.9 Hypothyroidism, unspecified; J44.9 Chronic obstructive pulmonary disease, unspecified; D64.9 Anemia, unspecified; K52.9 Noninfective gastroenteritis and colitis, unspecified

== ENCOUNTER → 2018-05-25 12:27 | Outpatient (CLI) | payer MEDICARE, OTHER ==
[2018-05-06 16:27] VITALS: BMI 36.6
[~2018-05-25 12:27] MED LIST changes: +CALCIUM 500 + D1 TAB PO; +FLORAJEN3 CAPS460 MG PO; +LEVAQUIN250 MG PO; +MIRALAX17 GM PO; +OXYBUTYNIN CHLOR5 MG PO; +PREDNISONE10 MG PO
== END | disposition home or self-care (01) ==
LOC: D.RT 12:27
DX: J44.9 Chronic obstructive pulmonary disease, unspecified (principal)

== ENCOUNTER 2018-06-07 19:49 | Inpatient (IN) | payer MEDICARE, OTHER ==
[~2018-06-07] VITALS: Ht 157.5 cm; Wt 90.7 kg
--- NOTE | ~2018-06-07 | MORECARE ---
CASE MANAGEMENT DISCHARGE SUMMARY PATIENT: SHI SERRANO UNIT: [id number] ADM DATE: 06/07/18 AGE: 78 : 41 SEX: F ROOM/BED: D.1211 AUTHOR: IRAIDA HYLTON PHYSICIAN: REFERRING PHYSICIAN: CLAY JULIO MD DATE OF SERVICE: 06/08/18 Discharge Plan Patient Name: SHI SERRANO Facility: [facility]:[place] : 1940 Planned Disposition: Home Anticipated Discharge Date: Discharge Date: Expected LOS: Initial Reviewer: [email or web address] Initial Review Date: 06/07/2018 Generated: 06/08/18 7:00 pm Comments DCP- Discharge Planning Updated by [email or web address]: Juliet Arellano on 06/08/18 4:[address] Patient Name: SHI SERRANO Admission Status: ER Accout number: [id number] Admission Date: 06-07-2018 : 1940 Admission Diagnosis: Attending: CLAY JULIO Current LOS: 1 Anticipated DC Date: Planned Disposition: Home Primary Insurance: MEDICARE A & B Discharge Planning Comments: CM met with patient at bedside after obtaining verbal consent. Patient states he plans on returning home at [facility] after discharge. Patient states she will have transportation home. Patient states she has House Calls set up to come visit. Patient states that she has home 02 and nebulizer @ home. She states that she will need her updraft medication called into pharmacy upon discharge. Patient denies any discharge needs at this time. CM will continue to follow and assist as needed for discharge planning / needs. Multicultural Internship: Juliet Arellano DCPIA - Discharge Planning Initial Assessment Updated by [email or web address]: Juliet Arellano on 06/08/18 5:48 pm * Is the patient Alert and Oriented? Yes * How many steps to enter\exit or inside your home? * PCP HOUSE CALLS NURSES * Pharmacy [facility] * Preadmission Environment Home Alone * ADLs Independent * Equipment Walker * Other Equipment CANE, HOME 02, NEBULIZER * List name and contact numbers for known caregivers / representatives who currently or will assist patient after discharge: ISABELLA OLVERA [phone] * Verbal permission to speak to the caregivers and representatives has been obtained from the patient. N/A * Please name any agencies selected above. HOUSE CALLS * Additional services required to return to the preadmission environment? No * Can the patient safely return to the preadmission environment? Yes * Has this patient been hospitalized within the prior 30 days at any hospital? No Last DP export: 06/08/18 4:53 Patient Name: SHI SERRANO Page [id number] at 1800 All edits/amendments must be made on the electronic document DICTATION DATE: 06/08/181799 MOVING CONSULTANT: JEANETTE 06/08/181799 RPT#: [id number] DC DATE: STATUS: ADM IN [facility] [address] [place] [address] END OF REPORT
--- NOTE | ~2018-06-07 | MORECARE ---
CASE MANAGEMENT DISCHARGE SUMMARY PATIENT: SHI SERRANO UNIT: [id number] ADM DATE: 06/07/18 AGE: 78 : 41 SEX: F ROOM/BED: D.1211 AUTHOR: IRAIDA HYLTON PHYSICIAN: REFERRING PHYSICIAN: CLAY JULIO MD DATE OF SERVICE: 06/10/18 Discharge Plan Patient Name: SHI SERRANO Facility: [facility]:[place] : 1940 Planned Disposition: Home Anticipated Discharge Date: Discharge Date: Expected LOS: Initial Reviewer: [email or web address] Initial Review Date: 06/07/2018 Generated: 06/10/18 3:21 pm Comments DCP- Discharge Planning Updated by [email or web address]: Juliet Arellano on 06/10/18 1:[address] IMM explained and served 06/10/18 @ 1310 CM will continue to follow and assist as needed with discharge plans / needs DCP- Discharge Planning Updated by [email or web address]: Juliet Arellano on 06/08/18 4:[address] Patient Name: SHI SERRANO Admission Status: ER Accout number: [id number] Admission Date: 06-07-2018 : 1940 Admission Diagnosis: Attending: CLAY JULIO Current LOS: 1 Anticipated DC Date: Planned Disposition: Home Primary Insurance: MEDICARE A & B Discharge Planning Comments: CM met with patient at bedside after obtaining verbal consent. Patient states he plans on returning home at [facility] after discharge. Patient states she will have transportation home. Patient states she has House Calls set up to come visit. Patient states that she has home 02 and nebulizer @ home. She states that she will need her updraft medication called into pharmacy upon discharge. Patient denies any discharge needs at this time. CM will continue to follow and assist as needed for discharge planning / needs. Shoulder Pad Molder: Juliet Arellano DCPIA - Discharge Planning Initial Assessment Updated by [email or web address]: Juliet Arellano on 06/08/18 5:48 pm * Is the patient Alert and Oriented? Yes * How many steps to enter\exit or inside your home? * PCP HOUSE CALLS NURSES * Pharmacy [facility] * Preadmission Environment Home Alone * ADLs Independent * Equipment Walker * Other Equipment CANE, HOME 02, NEBULIZER * List name and contact numbers for known caregivers / representatives who currently or will assist patient after discharge: ISABELLA OLVERA [phone] * Verbal permission to speak to the caregivers and representatives has been obtained from the patient. N/A * Please name any agencies selected above. HOUSE CALLS * Additional services required to return to the preadmission environment? No * Can the patient safely return to the preadmission environment? Yes * Has this patient been hospitalized within the prior 30 days at any hospital? No Coverage Notice Reviewer: [id number] - Juliet Arellano Notice Issued Date-Time: 06/10/2018 13:10 Notice Type: IM Discharge Notice Notice Delivered To: Patient Relationship to Patient: Self Boilermaker Industrial Boilers Name: Delivery Method: HAND - Hand Delivered Krystina Days: Prior Verbal Notification: Recipient Understood Notice: Yes Recipient Signature: Yes Med Rec Note Co-signed by Attending: Coverage Notice Comment: Last DP export: 06/08/18 5:00 Patient Name: SHI SERRANO Page 41171 at 1421 All edits/amendments must be made on the electronic document DICTATION DATE: 06/10/181419 SHINGLE CATCHER: JEANETTE 06/10/181419 RPT#: [id number] DC DATE: STATUS: ADM IN [facility] [address] [place] [address] END OF REPORT
--- NOTE | ~2018-06-07 | MORECARE ---
CASE MANAGEMENT DISCHARGE SUMMARY PATIENT: SHI SERRANO UNIT: [id number] ADM DATE: 06/07/18 AGE: 78 : 41 SEX: F ROOM/BED: D.1211 AUTHOR: IRAIDA HYLTON PHYSICIAN: REFERRING PHYSICIAN: CLAY JULIO MD DATE OF SERVICE: 06/08/18 Discharge Plan Patient Name: SHI SERRANO Facility: [facility]:[place] : 1940 Planned Disposition: Home Anticipated Discharge Date: Discharge Date: Expected LOS: Initial Reviewer: [email or web address] Initial Review Date: 06/07/2018 Generated: 06/08/18 6:53 pm DCPIA - Discharge Planning Initial Assessment Updated by [email or web address]: Juliet Arellano on 06/08/18 5:48 pm * Is the patient Alert and Oriented? Yes * How many steps to enter\exit or inside your home? * PCP HOUSE CALLS NURSES * Pharmacy [facility] * Preadmission Environment Home Alone * ADLs Independent * Equipment Walker * Other Equipment CANE, HOME 02, NEBULIZER * List name and contact numbers for known caregivers / representatives who currently or will assist patient after discharge: ISABELLA OLVERA [phone] * Verbal permission to speak to the caregivers and representatives has been obtained from the patient. N/A * Please name any agencies selected above. HOUSE CALLS * Additional services required to return to the preadmission environment? No * Can the patient safely return to the preadmission environment? Yes * Has this patient been hospitalized within the prior 30 days at any hospital? No Last DP export: 06/08/18 4:47 Patient Name: SHI SERRANO Page 66072 at 1754 All edits/amendments must be made on the electronic document DICTATION DATE: 06/08/181752 DISTRICT HOME ECONOMICS AGENT: JEANETTE 06/08/181752 RPT#: [id number] DC DATE: STATUS: ADM IN [facility] [address] [place] [address] END OF REPORT
--- NOTE | ~2018-06-07 | MORECARE ---
CASE MANAGEMENT DISCHARGE SUMMARY PATIENT: SHI SERRANO UNIT: [id number] ADM DATE: 06/07/18 AGE: 78 : 41 SEX: F ROOM/BED: D.1211 AUTHOR: IRAIDA HYLTON PHYSICIAN: REFERRING PHYSICIAN: CLAY JULIO MD DATE OF SERVICE: 06/08/18 Discharge Plan Patient Name: SHI SERRANO Facility: [facility]:[place] : 1940 Planned Disposition: Home Anticipated Discharge Date: Discharge Date: Expected LOS: Initial Reviewer: [email or web address] Initial Review Date: 06/07/2018 Generated: 06/08/18 6:47 pm Patient Name: SHI SERRANO Page 74498 at 4992 All edits/amendments must be made on the electronic document DICTATION DATE: 06/08/181746 HIDE SELECTOR: JEANETTE 06/08/181746 RPT#: [id number] DC DATE: STATUS: ADM IN [facility] [address] [place] [address] END OF REPORT
--- NOTE | ~2018-06-07 | MORECARE ---
CASE MANAGEMENT DISCHARGE SUMMARY PATIENT: SHI SERRANO UNIT: [id number] ADM DATE: 06/07/18 AGE: 78 : 41 SEX: F ROOM/BED: D.1211 AUTHOR: IRAIDA HYLTON PHYSICIAN: REFERRING PHYSICIAN: CLAY JULIO MD DATE OF SERVICE: 06/11/18 Discharge Plan Patient Name: SHI SERRANO Facility: [facility]:[place] : 1940 Planned Disposition: Home Anticipated Discharge Date: Discharge Date: 06/10/2018 Expected LOS: Initial Reviewer: [email or web address] Initial Review Date: 06/07/2018 Generated: 06/11/18 10:57 am Comments DCP- Discharge Planning Updated by [email or web address]: Juliet Arellano on 06/10/18 1:[address] IMM explained and served 06/10/18 @ 1310 CM will continue to follow and assist as needed with discharge plans / needs DCP- Discharge Planning Updated by [email or web address]: Juliet Arellano on 06/08/18 4:[address] Patient Name: SHI SERRANO Admission Status: ER Accout number: [id number] Admission Date: 06-07-2018 : 1940 Admission Diagnosis: Attending: CLAY JULIO Current LOS: 1 Anticipated DC Date: Planned Disposition: Home Primary Insurance: MEDICARE A & B Discharge Planning Comments: CM met with patient at bedside after obtaining verbal consent. Patient states he plans on returning home at [facility] after discharge. Patient states she will have transportation home. Patient states she has House Calls set up to come visit. Patient states that she has home 02 and nebulizer @ home. She states that she will need her updraft medication called into pharmacy upon discharge. Patient denies any discharge needs at this time. CM will continue to follow and assist as needed for discharge planning / needs. Cordwood Cutter Helper: Juliet Arellano DCPIA - Discharge Planning Initial Assessment Updated by [email or web address]: Juliet Arellano on 06/08/18 5:48 pm * Is the patient Alert and Oriented? Yes * How many steps to enter\exit or inside your home? * PCP HOUSE CALLS NURSES * Pharmacy [facility] * Preadmission Environment Home Alone * ADLs Independent * Equipment Walker * Other Equipment CANE, HOME 02, NEBULIZER * List name and contact numbers for known caregivers / representatives who currently or will assist patient after discharge: ISABELLA OLVERA [phone] * Verbal permission to speak to the caregivers and representatives has been obtained from the patient. N/A * Please name any agencies selected above. HOUSE CALLS * Additional services required to return to the preadmission environment? No * Can the patient safely return to the preadmission environment? Yes * Has this patient been hospitalized within the prior 30 days at any hospital? No Coverage Notice Reviewer: [email or web address] Annie Arellano Notice Issued Date-Time: 06/10/2018 13:10 Notice Type: IM Discharge Notice Notice Delivered To: Patient Relationship to Patient: Self Business Support Assistant Name: Delivery Method: HAND - Hand Delivered Krystina Days: Prior Verbal Notification: Recipient Understood Notice: Yes Recipient Signature: Yes Med Rec Note Co-signed by Attending: Coverage Notice Comment: Last DP export: 06/10/18 1:21 Patient Name: SHI SERRANO Page 61292 at 0957 All edits/amendments must be made on the electronic document DICTATION DATE: 06/11/18955 CHAIR CAR ATTENDANT: JEANETTE 06/11/18955 RPT#: [id number] DC DATE:06/10/18 STATUS: DIS IN [place] [address] [place] [address] END OF REPORT
--- NOTE | ~2018-06-07 | CN ---
PATIENT NAME:SHI SERRANO MEDICAL RECORD: [id number] : 42 LOCATION:D.M3 D.1211 ADMIT DATE: 06/07/18 ACCOUNT: [id number] CONSULTING PHYSICIAN: ANIKA HARRIS MD REFERRING PHYSICIAN: JEANE JULIO MD DATE OF CONSULTATION: 06/08/2018 CONSULT REQUESTING PHYSICIAN: Jeane Julio MD REASON FOR CONSULTATION: Acute exacerbation of COPD, acute tracheobronchitis. HISTORY OF PRESENT ILLNESS: Ms. Serrano is a 78-year-old female, patient of mine. She was seen in the office on Friday. She was doing well. She was breathing better. Then, at evening, she was playing bingo and the chanelle sitting beside her had cold. He was coughing . Next day, she started congestion in her chest, got shortness of breath and coughing with very little sputum production. She is also having body aches and pain. REVIEW OF THE SYSTEMS: As in history of present illness. PAST MEDICAL HISTORY: 1. COPD. 2. Chronic hypoxic respiratory failure. 3. Hypothyroidism. 4. History of pneumonia. 5. History of skin cancer. PAST SURGICAL HISTORY: 1. She had cancer removed from her skin. 2. She had arthroscopic surgery. 3. She had left breast abscess drained. ALLERGIES: SHE IS ALLERGIC TO NEOMYCIN, POLYMYXIN, AND BACITRACIN. MEDICATIONS: Likely.cotech was reviewed. PERSONAL AND SOCIAL HISTORY: The patient is an ex-smoker. She is living in assisted living. FAMILY HISTORY: Noncontributory. PHYSICAL EXAMINATION: GENERAL: The patient is lying comfortably. She is not in acute distress. VITAL SIGNS: The blood pressure is 136/69, pulse is 89, respiration is 20, temperature is 97.9, and SpO2 is 97% on 4.5 liters nasal cannula. HEENT: Conjunctivae are pink. Sclerae are not icteric. NECK: Neck is supple. No JVD. CHEST: The chest excursion is minimal on both sides. There are wheezes on forceful expiration. HEART: Rhythm regular. Normal sound. No murmur. ABDOMEN: Abdomen is soft. Bowel sounds present. No hepatosplenomegaly. RECTAL: Deferred. EXTREMITIES: No cyanosis. No clubbing. No pedal edema. SKIN: The skin is warm. Normal turgor. CENTRAL NERVOUS SYSTEM: The patient is awake and alert. There is no obvious CONSULT REPORT [id number] SHI SERRANO A cranial nerve abnormality. The gait was not tested. CHEST RADIOGRAPH: There is no acute infiltrate. LABORATORY DATA: CBC; WBC 9.3, hemoglobin 11.4, hematocrit 35, and platelet count 176. Chemistry; sodium 143, potassium 3.9, BUN is 14, and creatinine is 1. IMPRESSION: 1. Acute exacerbation of COPD. 2. Tracheobronchitis. 3. Ckric-ls-lhlhzkh hypoxic respiratory failure. 4. Dyspnea. 5. Obstructive sleep apnea. RECOMMENDATION: 1. Add methylprednisolone IV. 2. Continue empiric Levaquin. 3. Start Brovana and budesonide nebulizer. 4. Albuterol/ipratropium nebulizer. 5. Mucinex DM. 6. Followup labs in the morning. When the patient is stable, she can be discharged back home. Dr. Julio, thank you for involving me in the care of Ms. Serrano. TRANSINT:[id number] Voice Confirmation ID: [id number] DOCUMENT ID: [id number] ANIKA HARRIS MD CC: [id number] DICTATION DATE: 06/08/181919 SEWING MACHINE REPAIRER HELPER: 06/09/[address] [facility] [address] [place] [address]
[~2018-06-07 19:49] MED LIST changes: -FLORAJEN3 CAPS460 MG PO; -LEVAQUIN250 MG PO; -OXYBUTYNIN CHLOR5 MG PO; -PREDNISONE10 MG PO
[2018-06-07 20:07] VITALS: BP 144/79
[2018-06-07 20:26] LABS: BASOPHILS 0.4 % (0-2); EOSINOPHILS 15.4 % (0-7); HEMATOCRIT 35.4 % (36.0-48.0); HEMOGLOBIN 11.4 g/dL (12-16); IMMATURE GRANULOCYTES 0.1 % (0-5); LYMPHOCYTES 18.9 % (15-50); MCH 28.1 pg (26.0-34.0); MCHC 32.2 g/dL (31.0-37.0); MCV 87.4 fL (80.0-100.0); MEAN PLATELET VOLUME 9.6 fL (7.4-10.4); MONOCYTES 7.9 % (2-11); NEUTROPHILS 57.3 % (40-80); PLATELET COUNT 184 10x3/uL (130-400); RBC 4.05 10x6/uL (4.00-5.40); RDW 15.4 % (11.5-14.5); WBC 7.2 10x3/uL (4.8-10.8)
[2018-06-07 20:30] VITALS: BP 186/57
[2018-06-07 20:52] LABS: ALBUMIN 3.1 g/dL (3.4-5.0); ALKALINE PHOSPHATASE 129 U/L (46-116); ALT (SGPT) 50 U/L (10-68); BILIRUBIN - TOTAL 0.51 mg/dL (0.2-1.3); CALC OSMOLALITY 286 mosm/kg (275-300); CALCIUM 9.4 mg/dL (8.5-10.1); CARBON DIOXIDE 26.1 mmol/L (21.0-32.0); CHLORIDE - SERUM 107 mmol/L (98-107); GLUCOSE 111 mg/dL (74-106); POTASSIUM - SERUM 3.9 mmol/L (3.5-5.1); PROTEIN - SERUM 6.5 g/dL (6.4-8.2); SODIUM 143 mmol/L (136-145); UREA NITROGEN 14 mg/dL (7-18); eGFR NON AFRICAN AMERICAN 57 mL/min (90-120)
[2018-06-07 21:04] LABS: CKMB 1.3 U/L (0.0-3.6); CREATINE KINASE 61 UL (21-215); PRO BNP 96 pg/mL (0-450)
[2018-06-07 21:06] LABS: TROPONIN-I < 0.017 ng/mL (0.000-0.060)
[2018-06-07 21:15] LABS: APTT 27.1 SECONDS (22.8-39.4); INR 0.88 (0.85-1.17); PROTIME 11.6 SECONDS (11.6-15.0)
[2018-06-07] MEDS ORDERED: OXYBUTYNIN CHLOR5 MG PO ×2 (22:46→22:49)
[2018-06-08] VITALS (7 sets, daily range): BP systolic 133–163; BP diastolic 64–79; Ht 157.5 cm; Wt 90.7 kg
[2018-06-08 11:26] LABS: BASOPHILS 0 % (0-2); EOSINOPHILS 0.1 % (0-7); HEMOGLOBIN 11.4 g/dL (12-16); IMMATURE GRANULOCYTES 0.2 % (0-5); LYMPHOCYTES 6.6 % (15-50); MCH 28.3 pg (26.0-34.0); MCHC 32.6 g/dL (31.0-37.0); MCV 86.8 fL (80.0-100.0); MEAN PLATELET VOLUME 9.9 fL (7.4-10.4); MONOCYTES 1.2 % (2-11); NEUTROPHILS 91.9 % (40-80); PLATELET COUNT 176 10x3/uL (130-400); RBC 4.03 10x6/uL (4.00-5.40); RDW 15.3 % (11.5-14.5)
[2018-06-08 11:35] LABS: WBC 9.3 10x3/uL (4.8-10.8)
[2018-06-08 11:50] LABS: BILIRUBIN - TOTAL 0.26 mg/dL (0.2-1.3); CALCIUM 9.6 mg/dL (8.5-10.1); CARBON DIOXIDE 25.1 mmol/L (21.0-32.0); POTASSIUM - SERUM 4.1 mmol/L (3.5-5.1); PROTEIN - SERUM 6.8 g/dL (6.4-8.2)
[2018-06-09] VITALS: BP 134/69
[2018-06-09 04:00] VITALS: BP 124/68
[2018-06-09 06:13] LABS: BASOPHILS 0.1 % (0-2); EOSINOPHILS 0.2 % (0-7); HEMATOCRIT 33.3 % (36.0-48.0); HEMOGLOBIN 10.7 g/dL (12-16); IMMATURE GRANULOCYTES 0.3 % (0-5); MCH 28.2 pg (26.0-34.0); MCHC 32.1 g/dL (31.0-37.0); MCV 87.9 fL (80.0-100.0); MEAN PLATELET VOLUME 9.8 fL (7.4-10.4); MONOCYTES 5.5 % (2-11); NEUTROPHILS 87.9 % (40-80); PLATELET COUNT 176 10x3/uL (130-400); RBC 3.79 10x6/uL (4.00-5.40); RDW 15.7 % (11.5-14.5)
[2018-06-09 06:20] LABS: WBC 13.4 10x3/uL (4.8-10.8)
[2018-06-09 06:52] LABS: ALBUMIN 3.1 g/dL (3.4-5.0); BILIRUBIN - TOTAL 0.35 mg/dL (0.2-1.3); CALCIUM 9.4 mg/dL (8.5-10.1); CARBON DIOXIDE 27.6 mmol/L (21.0-32.0); CREATININE - SERUM 0.8 mg/dL (0.6-1.3); POTASSIUM - SERUM 4.6 mmol/L (3.5-5.1); PROTEIN - SERUM 6.1 g/dL (6.4-8.2)
[2018-06-09 08:28] VITALS: BP 119/68
[2018-06-09 15:48] VITALS: BP 131/57
[2018-06-09 20:25] VITALS: BP 142/73
[2018-06-10 00:33] VITALS: BP 150/79
[2018-06-10 05:19] VITALS: BP 151/91
[2018-06-10 05:25] LABS: BASOPHILS 0 % (0-2); EOSINOPHILS 0.1 % (0-7); HEMATOCRIT 34.5 % (36.0-48.0); IMMATURE GRANULOCYTES 0.1 % (0-5); LYMPHOCYTES 6.4 % (15-50); MCHC 31.9 g/dL (31.0-37.0); MCV 87.8 fL (80.0-100.0); MEAN PLATELET VOLUME 9.8 fL (7.4-10.4); MONOCYTES 6.2 % (2-11); NEUTROPHILS 87.2 % (40-80); PLATELET COUNT 182 10x3/uL (130-400); RBC 3.93 10x6/uL (4.00-5.40); RDW 15.9 % (11.5-14.5); WBC 11.2 10x3/uL (4.8-10.8)
[2018-06-10 05:45] LABS: ALBUMIN 3.2 g/dL (3.4-5.0); ANION GAP 12.9 mmol/L (8-16); BILIRUBIN - TOTAL 0.3 mg/dL (0.2-1.3); CALCIUM 9.7 mg/dL (8.5-10.1); CARBON DIOXIDE 26.2 mmol/L (21.0-32.0); POTASSIUM - SERUM 4.1 mmol/L (3.5-5.1); PROTEIN - SERUM 6.7 g/dL (6.4-8.2)
[2018-06-10 07:19] VITALS: BP 134/71
[2018-06-10 11:34] VITALS: BP 154/68
[2018-06-10] MEDS ORDERED: PREDNISONE10 MG PO (15:24)
[2018-06-10] MEDS ORDERED: LEVAQUIN250 MG PO (15:24)
[2018-06-10] MEDS ORDERED: FLORAJEN3 CAPS460 MG PO (15:24)
== END 2018-06-10 16:50 | disposition home or self-care (01) | DRG 189 ==
LOC: D.ER 19:49 → D.M3 21:26 → D.ER 21:52 → D.M3 06-10 16:50
PROVIDERS: Emergency Medicine
DX: J96.21 Acute and chronic respiratory failure with hypoxia (principal); J44.1 Chronic obstructive pulmonary disease with (acute) exacerbation; J44.0 Chronic obstructive pulmonary disease with (acute) lower respiratory infection; J45.901 Unspecified asthma with (acute) exacerbation; J20.9 Acute bronchitis, unspecified; E66.9 Obesity, unspecified; Z68.36 Body mass index [BMI] 36.0-36.9, adult; G47.33 Obstructive sleep apnea (adult) (pediatric); I10 Essential (primary) hypertension; Z87.891 Personal history of nicotine dependence

== ENCOUNTER 2018-08-04 08:30 | Inpatient (IN) | payer MEDICARE, OTHER ==
[~2018-08-04] VITALS: Ht 157.5 cm; Wt 91.2 kg
--- NOTE | ~2018-08-04 | MORECARE ---
CASE MANAGEMENT DISCHARGE SUMMARY PATIENT: SHI SERRANO UNIT: [id number] ADM DATE: 08/04/18 AGE: 78 : 41 SEX: F ROOM/BED: D.3034 AUTHOR: IRAIDA HYLTON PHYSICIAN: REFERRING PHYSICIAN: JESSA PATEL MD DATE OF SERVICE: 08/10/18 Discharge Plan Patient Name: SHI SERRANO Facility: [facility]:[place] : 1940 Planned Disposition: Home Anticipated Discharge Date: 08/10/18 Discharge Date: 08/10/2018 Expected LOS: 6 Initial Reviewer: [email or web address] Initial Review Date: 08/04/2018 Generated: 08/10/18 4:44 pm Comments DCP- Discharge Planning Updated by [email or web address]: Gwyn Padilla on 08/10/18 2:[address] Patient Name: SHI SERRANO Encounter No: [id number] : 1940 Primary Insurance: MEDICARE A & B Anticipated DC Date: 08-10-2018 Planned Disposition: HOME DCP follow-up note: CM MET WITH PT IN ROOM TO DISCUSS DISCHARGE NEEDS AND PLANNING. CM DISCUSSED AVAILABILITY OF HOME HEALTH, REHAB SERVICES AND MEDICAL EQUIPMENT. PT DENIES DISCHARGE NEEDS. SON TO TRANSPORT HOME AT DISCHARGE. IMPORTANT MESSAGE FROM MEDICARE PROVIDED AND EXPLAINED. UPPER EXTREMITY SURGEON NURSE NOTIFIED. BRUNA Crews DCP- Discharge Planning Updated by [email or web address]: Jenny Marquezlroy on 08/04/18 11:[address] CM met with patient regarding DC needs/plans. Patient was discharged from this facility July 28. PCP: House calls (visited patient Jul.31). Pharmacy: [facility] and her son picked up prescriptions for her, including antibiotics. States she lives @[facility] in an apartment. Patient states House calls visited in her home. DME: Home O2, portable O2, nebulizer, walker, cane, shower chair. States her son is attempting to assist with obtaining her Veterans Pension (from ). on March 25, 2018. States right now she obtains a SS check, only. CM contacted [facility] and was notified that the patient declined HHS, but request a housekeeping service. Emergency Contact: Denys Serrano #[phone]. Patient states she plans on returning to her apartment and does not need Rehab services. Voices no other needs at this time. Jenny Jiang RN CM DCPIA - Discharge Planning Initial Assessment Updated by [email or web address]: Jenny Jiang on 08/04/18 12:31 pm * Is the patient Alert and Oriented? Yes * How many steps to enter\exit or inside your home? * PCP Housecalls visits her * Pharmacy [facility] * Preadmission Environment Home Alone * ADLs Independent * Equipment Cane Nebulizer Oxygen Rolling Walker Shower Chair * List name and contact numbers for known caregivers / representatives who currently or will assist patient after discharge: Denys Serrano (son) [phone] * Verbal permission to speak to the caregivers and representatives has been obtained from the patient. Yes * Community resources currently utilized Assisted Living * Please name any agencies selected above. Lives [facility] No [facility], wants assembly department supervisor. Son attempting to obtain assistance from [facility]. * Additional services required to return to the preadmission environment? No * Can the patient safely return to the preadmission environment? Yes * Has this patient been hospitalized within the prior 30 days at any hospital? Yes Coverage Notice Reviewer: [email or web address] Annie Padilla Notice Issued Date-Time: 08/10/2018 12:55 Notice Type: IM Discharge Notice Notice Delivered To: Patient Relationship to Patient: Vocational Training Teacher Name: Delivery Method: HAND - Hand Delivered Krystina Days: Prior Verbal Notification: Recipient Understood Notice: Yes Recipient Signature: Yes Med Rec Note Co-signed by Attending: Coverage Notice Comment: Last DP export: 08/10/18 2:35 Patient Name: SHI SERRANO Page [id number] at 1544 All edits/amendments must be made on the electronic document DICTATION DATE: 08/10/181542 COUNTY DEMONSTRATOR: JEANETTE 08/10/181542 RPT#: [id number] DC DATE:08/10/18 STATUS: DIS IN [facility] [address] [place] [address] END OF REPORT
--- NOTE | ~2018-08-04 | MORECARE ---
CASE MANAGEMENT DISCHARGE SUMMARY PATIENT: SHI SERRANO UNIT: [id number] ADM DATE: 08/04/18 AGE: 78 : 41 SEX: F ROOM/BED: D.2135 AUTHOR: IRAIDA HYLTON PHYSICIAN: REFERRING PHYSICIAN: JESSA PATEL MD DATE OF SERVICE: 08/05/18 Discharge Plan Patient Name: SHI SERRANO Facility: [facility]:[place] : 1940 Planned Disposition: Anticipated Discharge Date: Discharge Date: Expected LOS: Initial Reviewer: [email or web address] Initial Review Date: 08/04/2018 Generated: 08/05/18 9:30 am DCP- Discharge Planning Updated by [email or web address]: Jenny Jiang on 08/04/18 11:[address] CM met with patient regarding DC needs/plans. Patient was discharged from this facility July 28. PCP: House calls (visited patient Jul.31). Pharmacy: [facility] and her son picked up prescriptions for her, including antibiotics. States she lives @[facility] in an apartment. Patient states House calls visited in her home. DME: Home O2, portable O2, nebulizer, walker, cane, shower chair. States her son is attempting to assist with obtaining her Veterans Pension (from ). on March 25, 2018. States right now she obtains a SS check, only. CM contacted [facility] and was notified that the patient declined HHS, but request a housekeeping service. Emergency Contact: Denys Serrano #[phone]. Patient states she plans on returning to her apartment and does not need Rehab services. Voices no other needs at this time. Jenny Jiang RN, CM DCPIA - Discharge Planning Initial Assessment Updated by [email or web address]: Jenny Jiang on 08/04/18 12:31 pm * Is the patient Alert and Oriented? Yes * How many steps to enter\exit or inside your home? * PCP Housecalls visits her * [facility] * Preadmission Environment Home Alone * ADLs Independent * Equipment Cane Nebulizer Oxygen Rolling Walker Shower Chair * List name and contact numbers for known caregivers / representatives who currently or will assist patient after discharge: Denys Serrano (son) [phone] * Verbal permission to speak to the caregivers and representatives has been obtained from the patient. Yes * Community resources currently utilized Assisted Living * Please name any agencies selected above. Lives [facility] No HHS, wants paver. Son attempting to obtain assistance from [facility]. * Additional services required to return to the preadmission environment? No * Can the patient safely return to the preadmission environment? Yes * Has this patient been hospitalized within the prior 30 days at any hospital? Yes Last DP export: 08/04/18 11:56 Patient Name: SHI SERRANO Page [id number] at 0830 All edits/amendments must be made on the electronic document DICTATION DATE: 08/05/18828 TRANSPORTATION AGENT: JEANETTE 08/05/18828 RPT#: [id number] DC DATE: STATUS: ADM IN [facility] [address] [place] [address] END OF REPORT
--- NOTE | ~2018-08-04 | MORECARE ---
CASE MANAGEMENT DISCHARGE SUMMARY PATIENT: SHI SERRANO UNIT: [id number] ADM DATE: 08/04/18 AGE: 78 : 41 SEX: F ROOM/BED: D.2131 AUTHOR: IRAIDA HYLTON PHYSICIAN: REFERRING PHYSICIAN: JESSA PATEL MD DATE OF SERVICE: 08/10/18 Discharge Plan Patient Name: SHI SERRANO Facility: [facility]:[place] : 1940 Planned Disposition: Inpatient Rehab Anticipated Discharge Date: 08/10/18 Discharge Date: 08/10/2018 Expected LOS: 6 Initial Reviewer: [email or web address] Initial Review Date: 08/04/2018 Generated: 08/10/18 4:35 pm Comments DCP- Discharge Planning Updated by [email or web address]: Gwyn Padilla on 08/10/18 2:[address] Patient Name: SHI SERRANO Encounter No: [id number] : 1940 Primary Insurance: MEDICARE A & B Anticipated DC Date: 08-10-2018 Planned Disposition: Inpatient Rehab External Planned Provider: [facility] DCP follow-up note: CM SPOKE TO [facility], THEY PLAN TO ACCEPT PT TODAY FOR REHAB. PT NOTIFIED, IN AGREEMENT WITH DISCHARGE TO INPATIENT REHAB. IMPORTANT MESSAGE FROM MEDICARE PROVIDED AND DISCUSSED. [facility] TO CONTACT MED 2 NURSE WITH ROOM NUMBER WHEN READY TO ACCEPT PT AND NURSE REPORT. Gwyn Padilla, BRUNA MENDOZA DCP- Discharge Planning Updated by [email or web address]: Jenny Jiang on 08/04/18 11:[address] CM met with patient regarding DC needs/plans. Patient was discharged from this facility July 28. PCP: House calls (visited patient Jul.31). Pharmacy: [facility] and her son picked up prescriptions for her, including antibiotics. States she lives @[facility] in an apartment. Patient states House calls visited in her home. DME: Home O2, portable O2, nebulizer, walker, cane, shower chair. States her son is attempting to assist with obtaining her Veterans Pension (from ). on March 25, 2018. States right now she obtains a SS check, only. CM contacted [facility] and was notified that the patient declined HHS, but request a housekeeping service. Emergency Contact: Denys Serrano #[phone]. Patient states she plans on returning to her apartment and does not need Rehab services. Voices no other needs at this time. Jenny Jiang RN, CM DCPIA - Discharge Planning Initial Assessment Updated by [email or web address]: Jenny Jiang on 08/04/18 12:31 pm * Is the patient Alert and Oriented? Yes * How many steps to enter\exit or inside your home? * PCP Housecalls visits her * Pharmacy [facility] * Preadmission Environment Home Alone * ADLs Independent * Equipment Cane Nebulizer Oxygen Rolling Walker Shower Chair * List name and contact numbers for known caregivers / representatives who currently or will assist patient after discharge: Denys Serrano (son) [phone] * Verbal permission to speak to the caregivers and representatives has been obtained from the patient. Yes * Community resources currently utilized Assisted Living * Please name any agencies selected above. Lives [facility] No HHS, wants manager data center. Son attempting to obtain assistance from [facility]. * Additional services required to return to the preadmission environment? No * Can the patient safely return to the preadmission environment? Yes * Has this patient been hospitalized within the prior 30 days at any hospital? Yes Coverage Notice Reviewer: [id number] Annie Padilla Notice Issued Date-Time: 08/10/2018 12:55 Notice Type: IM Discharge Notice Notice Delivered To: Patient Relationship to Patient: Senior Cytotechnologist Name: Delivery Method: HAND - Hand Delivered Krystina Days: Prior Verbal Notification: Recipient Understood Notice: Yes Recipient Signature: Yes Med Rec Note Co-signed by Attending: Coverage Notice Comment: Last DP export: 08/05/18 7:30 Patient Name: SHI SERRANO Page [id number] at 1535 All edits/amendments must be made on the electronic document DICTATION DATE: 08/10/181533 CUSTOMER SERVICE ATTENDANT: JEANETTE 08/10/181533 RPT#: [id number] DC DATE:08/10/18 STATUS: DIS IN [facility] [address] [place] [address] END OF REPORT
--- NOTE | ~2018-08-04 | CN ---
PATIENT NAME:SHI SERRANO MEDICAL RECORD: [id number] : 42 LOCATION:D. D.2131 ADMIT DATE: 08/04/18 ACCOUNT: [id number] CONSULTING PHYSICIAN: ANIKA HARRIS MD REFERRING PHYSICIAN: JESSA PATEL MD DATE OF CONSULTATION: 08/05/2018 CONSULT REQUESTING PHYSICIAN: Mark Cheney MD REASON FOR CONSULTATION: Acute exacerbation of COPD, multilobar pneumonia. HISTORY OF PRESENT ILLNESS: Ms. Serrano is a 78-year-old female, very well known to our service. The patient was just discharged from the hospital, came in with worsening shortness of breath, wheezing, and coughing. CT of the chest showed multilobar pneumonia, but there were no PE. She is also having some fever and chill. No associated nausea or vomiting. REVIEW OF SYSTEMS: As in history of present illness. PAST MEDICAL HISTORY: 1. Chronic hypoxic respiratory failure. 2. Obstructive sleep apnea. 3. COPD. 4. Hypothyroidism. 5. History of pneumonia. 6. History of skin cancer. PAST SURGICAL HISTORY: 1. She has a cancer removed from her skin. 2. Arthroscopic surgery. 3. Left breast abscess drained. ALLERGIES: SHE IS ALLERGIC TO NEOMYCIN, POLYMYXIN, AND BACITRACIN. MEDICATIONS: [employer] is reviewed. PERSONAL AND SOCIAL HISTORY: The patient is an ex-smoker. She is living in assisted living. FAMILY HISTORY: Noncontributory. PHYSICAL EXAMINATION: GENERAL: Now, the patient is lying comfortably in bed. She is not in acute distress. VITAL SIGNS: The blood pressure is 150/67, pulse is 76, respiration is 18, temperature 97.7, SpO2 is 96% on 4 liters. HEENT: Conjunctivae are pink. Sclerae are not icteric. NECK: Supple, no JVD. CHEST: The chest excursion minimal, but there are bibasilar crackles. Wheeze on forceful expiration. HEART: Rhythm regular, normal sound, no murmur. ABDOMEN: Soft, bowel sounds present. No hepatosplenomegaly. RECTAL: Deferred. EXTREMITIES: No cyanosis, no clubbing, no pedal edema. CENTRAL NERVOUS SYSTEM: The patient is awake and alert. There are no obvious CONSULT REPORT [id number] SHI SERRANO cranial nerve abnormality. The gait was not tested. LABORATORY DATA: CBC: WBC 11.9, hemoglobin 11.8, hematocrit 35.8, the platelet count is 169. Chemistry: Sodium is 141, potassium 4.1, BUN is 27, creatinine is 1. The D-dimer 0.68. The CTA was negative for the PE, but there is multilobar pneumonia. IMPRESSION: 1. Kbpco-mu-viigdns hypoxic respiratory failure. 2. Lobar pneumonia consistent with a hospital-acquired pneumonia with recent hospitalization. 3. Acute exacerbation of COPD. 4. Dyspnea. 5. Obstructive sleep apnea. 6. Leukocytosis. 7. Positive D-dimer with negative for PE on the CTA of the chest. RECOMMENDATION: 1. I will discontinue Zithromax and Rocephin. Start her on vancomycin, Levaquin and cefepime to cover for hospital-acquired pneumonia. 2. Methylprednisolone IV. 3. Albuterol/ipratropium nebulizer. 4. Brovana/budesonide nebulizer. 5. Supplemental oxygen as required. We will follow up labs and chest radiograph. Dr. Cheney, thank you for involving me in the care of Ms. Serrano. TRANSINT:[id number] Voice Confirmation ID: [id number] DOCUMENT ID: [id number] ANIKA HARRIS MD at 1339 CC: [id number] DICTATION DATE: 08/05/18 141 CLIENT SERVICE ADMINISTRATOR: 08/05/18 1909 ADM IN [place] [address] [place] [address]
--- NOTE | ~2018-08-04 | MORECARE ---
CASE MANAGEMENT DISCHARGE SUMMARY PATIENT: SHI SERRANO UNIT: [id number] ADM DATE: 08/04/18 AGE: 78 : 41 SEX: F ROOM/BED: D.2131 AUTHOR: IRAIDA HYLTON PHYSICIAN: REFERRING PHYSICIAN: JESSA PATEL MD DATE OF SERVICE: 08/04/18 Discharge Plan Patient Name: SHI SERRANO Facility: [facility]:[place] : 1940 Planned Disposition: Anticipated Discharge Date: Discharge Date: Expected LOS: Initial Reviewer: [email or web address] Initial Review Date: 08/04/2018 Generated: 08/04/18 1:29 pm Patient Name: SHI SERRANO Page [phone] at 1229 All edits/amendments must be made on the electronic document DICTATION DATE: 08/04/18 1229 BEER COIL CLEANER: JEANETTE 08/04/18 1229 RPT#: [id number] DC DATE: STATUS: ADM IN [facility] [address] [place] [address] END OF REPORT
--- NOTE | ~2018-08-04 | MORECARE ---
CASE MANAGEMENT DISCHARGE SUMMARY PATIENT: SHI SERRANO UNIT: [id number] ADM DATE: 08/04/18 AGE: 78 : 41 SEX: F ROOM/BED: D.2131 AUTHOR: IRAIDA HYLTON PHYSICIAN: REFERRING PHYSICIAN: JESSA PATEL MD DATE OF SERVICE: 08/04/18 Discharge Plan Patient Name: SHI SERRANO Facility: [facility]:[place] : 1940 Planned Disposition: Anticipated Discharge Date: Discharge Date: Expected LOS: Initial Reviewer: [email or web address] Initial Review Date: 08/04/2018 Generated: 08/04/18 1:37 pm DCPIA - Discharge Planning Initial Assessment Updated by [email or web address]: Jenny Jiang on 08/04/18 12:31 pm * Is the patient Alert and Oriented? Yes * How many steps to enter\exit or inside your home? * PCP Housecalls visits her * Pharmacy [facility] * Preadmission Environment Home Alone * ADLs Independent * Equipment Cane Nebulizer Oxygen Rolling Walker Shower Chair * List name and contact numbers for known caregivers / representatives who currently or will assist patient after discharge: Denys Serrano (son) [phone] * Verbal permission to speak to the caregivers and representatives has been obtained from the patient. Yes * Community resources currently utilized Assisted Living * Please name any agencies selected above. Lives [facility] No [facility], wants material control manager. Son attempting to obtain assistance from [facility]. * Additional services required to return to the preadmission environment? No * Can the patient safely return to the preadmission environment? Yes * Has this patient been hospitalized within the prior 30 days at any hospital? Yes Last DP export: 08/04/18 11:29 Patient Name: SHI SERRANO Page 13392 at 1238 All edits/amendments must be made on the electronic document DICTATION DATE: 08/04/18 1237 PBX MECHANIC: JEANETTE 08/04/18 1237 RPT#: [id number] DC DATE: STATUS: ADM IN [facility] [address] [place] [address] END OF REPORT
--- NOTE | ~2018-08-04 | MORECARE ---
CASE MANAGEMENT DISCHARGE SUMMARY PATIENT: SHI SERRANO UNIT: [id number] ADM DATE: 08/04/18 AGE: 78 : 41 SEX: F ROOM/BED: D.2131 AUTHOR: IRAIDA HYLTON PHYSICIAN: REFERRING PHYSICIAN: JESSA PATEL MD DATE OF SERVICE: 08/04/18 Discharge Plan Patient Name: SHI SERRANO Facility: [facility]:[place] : 1940 Planned Disposition: Anticipated Discharge Date: Discharge Date: Expected LOS: Initial Reviewer: [email or web address] Initial Review Date: 08/04/2018 Generated: 08/04/18 1:56 pm DCP- Discharge Planning Updated by [email or web address]: Jenny Jiang on 08/04/18 11:[address] CM met with patient regarding DC needs/plans. Patient was discharged from this facility July 28. PCP: House calls (visited patient Jul.31). Pharmacy: [facility] and her son picked up prescriptions for her, including antibiotics. States she lives @[facility] in an apartment. Patient states House calls visited in her home. DME: Home O2, portable O2, nebulizer, walker, cane, shower chair. States her son is attempting to assist with obtaining her Veterans Pension (from ). on March 25, 2018. States right now she obtains a SS check, only. CM contacted [facility] and was notified that the patient declined HHS, but request a housekeeping service. Emergency Contact: Denys Serrano #[phone]. Patient states she plans on returning to her apartment and does not need Rehab services. Voices no other needs at this time. Jenny Jiang RN, CM DCPIA - Discharge Planning Initial Assessment Updated by [email or web address]: Jenny Jiang on 08/04/18 12:31 pm * Is the patient Alert and Oriented? Yes * How many steps to enter\exit or inside your home? * PCP Housecalls visits her * [facility] * Preadmission Environment Home Alone * ADLs Independent * Equipment Cane Nebulizer Oxygen Rolling Walker Shower Chair * List name and contact numbers for known caregivers / representatives who currently or will assist patient after discharge: Denys Serrano (son) [phone] * Verbal permission to speak to the caregivers and representatives has been obtained from the patient. Yes * Community resources currently utilized Assisted Living * Please name any agencies selected above. Lives [facility] No HHS, wants marble polisher. Son attempting to obtain assistance from [facility]. * Additional services required to return to the preadmission environment? No * Can the patient safely return to the preadmission environment? Yes * Has this patient been hospitalized within the prior 30 days at any hospital? Yes Last DP export: 08/04/18 11:38 Patient Name: SHI ESRRANO Page 51547 at 1256 All edits/amendments must be made on the electronic document DICTATION DATE: 08/04/18 1255 LIFE SCIENCE TECHNICAL OFFICER: JEANETTE 08/04/18 1255 RPT#: [id number] DC DATE: STATUS: ADM IN [facility] [address] [place] [address] END OF REPORT
[~2018-08-04 08:30] MED LIST changes: +FLORAJEN3 CAPS460 MG PO; +LEVAQUIN250 MG PO; +OXYBUTYNIN CHLOR5 MG PO; +PREDNISONE10 MG PO; +ZPAK PO
[2018-08-04 08:54] VITALS: BP 144/860
[2018-08-04 09:15] LABS: BASOPHILS 0.1 % (0-2); EOSINOPHILS 1.5 % (0-7); HEMATOCRIT 37.5 % (36.0-48.0); HEMOGLOBIN 12.5 g/dL (12-16); IMMATURE GRANULOCYTES 3.5 % (0-5); LYMPHOCYTES 12.2 % (15-50); MCH 29.4 pg (26.0-34.0); MCHC 33.3 g/dL (31.0-37.0); MCV 88.2 fL (80.0-100.0); MEAN PLATELET VOLUME 9.6 fL (7.4-10.4); MONOCYTES 7.4 % (2-11); NEUTROPHILS 75.3 % (40-80); RBC 4.25 10x6/uL (4.00-5.40); RDW 15.8 % (11.5-14.5); WBC 10.9 10x3/uL (4.8-10.8)
[2018-08-04 09:17] LABS: PLATELET COUNT 169 10x3/uL (130-400)
[2018-08-04 09:24] LABS: APTT 22.3 SECONDS (22.8-39.4); INR 0.92 (0.85-1.17); PROTIME 11.9 SECONDS (11.6-15.0)
[2018-08-04 09:25] LABS: D-DIMER-QUANTITATIVE 0.68 ug/mLFEU (0.20-0.54)
[2018-08-04 09:31] LABS: CALC OSMOLALITY 287 mosm/kg (275-300); CALCIUM 9.5 mg/dL (8.5-10.1); CARBON DIOXIDE 30.5 mmol/L (21.0-32.0); CHLORIDE - SERUM 105 mmol/L (98-107); CREATININE - SERUM 0.9 mg/dL (0.6-1.3); GLUCOSE 89 mg/dL (74-106); POTASSIUM - SERUM 3.6 mmol/L (3.5-5.1); SODIUM 142 mmol/L (136-145); TROPONIN-I < 0.017 ng/mL (0.000-0.060); UREA NITROGEN 29 mg/dL (7-18); eGFR NON AFRICAN AMERICAN 64 mL/min (90-120)
[2018-08-04 11:54] LABS: CKMB 1.1 U/L (0.0-3.6); CREATINE KINASE 28 UL (21-215)
[2018-08-04 11:55] LABS: TROPONIN-I < 0.017 ng/mL (0.000-0.060)
[2018-08-04 16:25] VITALS: BP 158/80
[2018-08-04 17:20] LABS: CKMB 0.9 U/L (0.0-3.6); CREATINE KINASE 30 UL (21-215)
[2018-08-04 17:22] LABS: TROPONIN-I < 0.017 ng/mL (0.000-0.060)
[2018-08-04 17:32] VITALS: BMI 36.8
[2018-08-04 20:00] VITALS: BP 133/78
[2018-08-04 23:48] LABS: CKMB 0.8 U/L (0.0-3.6); CREATINE KINASE 25 UL (21-215)
[2018-08-04 23:49] LABS: TROPONIN-I < 0.017 ng/mL (0.000-0.060)
[2018-08-05] VITALS: BP 120/69
[2018-08-05 05:04] LABS: BASOPHILS 0 % (0-2); EOSINOPHILS 0 % (0-7); HEMATOCRIT 35.8 % (36.0-48.0); HEMOGLOBIN 11.8 g/dL (12-16); IMMATURE GRANULOCYTES 2.2 % (0-5); LYMPHOCYTES 5.4 % (15-50); MCH 28.9 pg (26.0-34.0); MCV 87.7 fL (80.0-100.0); MEAN PLATELET VOLUME 10.1 fL (7.4-10.4); MONOCYTES 2.4 % (2-11); PLATELET COUNT 169 10x3/uL (130-400); RBC 4.08 10x6/uL (4.00-5.40); RDW 15.8 % (11.5-14.5); WBC 11.9 10x3/uL (4.8-10.8)
[2018-08-05 05:30] VITALS: BP 188/90
[2018-08-05 05:39] LABS: ALBUMIN 2.8 g/dL (3.4-5.0); BILIRUBIN - TOTAL 0.32 mg/dL (0.2-1.3); CALCIUM 8.8 mg/dL (8.5-10.1); CARBON DIOXIDE 26.1 mmol/L (21.0-32.0); POTASSIUM - SERUM 4.1 mmol/L (3.5-5.1); PROTEIN - SERUM 6.2 g/dL (6.4-8.2)
[2018-08-05 07:52] VITALS: BP 161/100
[2018-08-05 11:30] VITALS: BP 150/67
[2018-08-05 12:04] VITALS: Ht 157.5 cm; Wt 91.2 kg
[2018-08-05 15:54] VITALS: BP 145/69
[2018-08-05 20:00] VITALS: BP 180/92
[2018-08-06] VITALS: BP 148/64
[2018-08-06 04:00] VITALS: BP 191/89
[2018-08-06 05:16] LABS: BASOPHILS 0.1 % (0-2); EOSINOPHILS 0 % (0-7); HEMATOCRIT 35.2 % (36.0-48.0); HEMOGLOBIN 11.4 g/dL (12-16); IMMATURE GRANULOCYTES 1.2 % (0-5); LYMPHOCYTES 3.4 % (15-50); MCH 28.6 pg (26.0-34.0); MCHC 32.4 g/dL (31.0-37.0); MCV 88.4 fL (80.0-100.0); MEAN PLATELET VOLUME 10.4 fL (7.4-10.4); MONOCYTES 3.3 % (2-11); PLATELET COUNT 164 10x3/uL (130-400); RBC 3.98 10x6/uL (4.00-5.40); RDW 16.1 % (11.5-14.5)
[2018-08-06 05:19] LABS: WBC 18.9 10x3/uL (4.8-10.8)
[2018-08-06 06:01] LABS: ALBUMIN 2.8 g/dL (3.4-5.0); ANION GAP 14.4 mmol/L (8-16); BILIRUBIN - TOTAL 0.33 mg/dL (0.2-1.3); CALCIUM 9.4 mg/dL (8.5-10.1); CARBON DIOXIDE 26.8 mmol/L (21.0-32.0); CREATININE - SERUM 1.1 mg/dL (0.6-1.3); MAGNESIUM - SERUM 2.1 mg/dL (1.8-2.4); POTASSIUM - SERUM 4.2 mmol/L (3.5-5.1); PROTEIN - SERUM 6.2 g/dL (6.4-8.2)
[2018-08-06 07:53] VITALS: BP 157/69
[2018-08-06 11:41] VITALS: BP 116/68
[2018-08-06 15:02] VITALS: BP 133/69
[2018-08-06 20:00] VITALS: BP 138/65
[2018-08-07] VITALS: BP 154/64
[2018-08-07 04:00] VITALS: BP 149/65
[2018-08-07 05:39] LABS: BASOPHILS 0.1 % (0-2); EOSINOPHILS 0 % (0-7); HEMATOCRIT 33.8 % (36.0-48.0); HEMOGLOBIN 11.1 g/dL (12-16); IMMATURE GRANULOCYTES 2.3 % (0-5); LYMPHOCYTES 3.3 % (15-50); MCHC 32.8 g/dL (31.0-37.0); MCV 88.3 fL (80.0-100.0); MEAN PLATELET VOLUME 10.2 fL (7.4-10.4); MONOCYTES 2.9 % (2-11); NEUTROPHILS 91.4 % (40-80); PLATELET COUNT 153 10x3/uL (130-400); RBC 3.83 10x6/uL (4.00-5.40); RDW 16.2 % (11.5-14.5); WBC 20.6 10x3/uL (4.8-10.8)
[2018-08-07 06:30] LABS: ALBUMIN 2.8 g/dL (3.4-5.0); ANION GAP 17.4 mmol/L (8-16); BILIRUBIN - TOTAL 0.38 mg/dL (0.2-1.3); CALCIUM 9.1 mg/dL (8.5-10.1); CARBON DIOXIDE 23.8 mmol/L (21.0-32.0); CREATININE - SERUM 1.2 mg/dL (0.6-1.3); MAGNESIUM - SERUM 2.2 mg/dL (1.8-2.4); POTASSIUM - SERUM 4.2 mmol/L (3.5-5.1); PROTEIN - SERUM 5.9 g/dL (6.4-8.2)
[2018-08-07 08:34] VITALS: BP 146/66
[2018-08-07 11:28] VITALS: BP 136/63
[2018-08-07 16:09] VITALS: BP 146/60
[2018-08-07 20:00] VITALS: BP 146/79
[2018-08-08] VITALS: BP 147/63
[2018-08-08 04:00] VITALS: BP 159/69
[2018-08-08 05:42] LABS: BASOPHILS 0.2 % (0-2); EOSINOPHILS 0.1 % (0-7); HEMATOCRIT 33.9 % (36.0-48.0); IMMATURE GRANULOCYTES 2.6 % (0-5); LYMPHOCYTES 4.8 % (15-50); MCH 28.7 pg (26.0-34.0); MCHC 32.4 g/dL (31.0-37.0); MCV 88.5 fL (80.0-100.0); MEAN PLATELET VOLUME 9.9 fL (7.4-10.4); MONOCYTES 5.7 % (2-11); NEUTROPHILS 86.6 % (40-80); PLATELET COUNT 146 10x3/uL (130-400); RBC 3.83 10x6/uL (4.00-5.40); RDW 16.1 % (11.5-14.5); WBC 18.2 10x3/uL (4.8-10.8)
[2018-08-08 06:01] LABS: ALBUMIN 2.8 g/dL (3.4-5.0); ANION GAP 13.2 mmol/L (8-16); BILIRUBIN - TOTAL 0.42 mg/dL (0.2-1.3); CALCIUM 9.3 mg/dL (8.5-10.1); CARBON DIOXIDE 24.9 mmol/L (21.0-32.0); CREATININE - SERUM 1.1 mg/dL (0.6-1.3); MAGNESIUM - SERUM 2.1 mg/dL (1.8-2.4); POTASSIUM - SERUM 4.1 mmol/L (3.5-5.1); PROTEIN - SERUM 5.9 g/dL (6.4-8.2)
[2018-08-08 09:02] VITALS: BP 165/54
[2018-08-08 13:32] VITALS: BP 153/80
[2018-08-08 16:49] VITALS: BP 155/74
[2018-08-08 20:30] VITALS: BP 143/62
[2018-08-09 00:30] VITALS: BP 145/67
[2018-08-09 04:30] VITALS: BP 184/80
[2018-08-09 05:33] LABS: BASOPHILS 0.1 % (0-2); EOSINOPHILS 0.1 % (0-7); HEMATOCRIT 33.3 % (36.0-48.0); HEMOGLOBIN 10.8 g/dL (12-16); IMMATURE GRANULOCYTES 2.8 % (0-5); LYMPHOCYTES 4.9 % (15-50); MCH 28.8 pg (26.0-34.0); MCHC 32.4 g/dL (31.0-37.0); MCV 88.8 fL (80.0-100.0); MEAN PLATELET VOLUME 10.1 fL (7.4-10.4); MONOCYTES 4.4 % (2-11); NEUTROPHILS 87.7 % (40-80); PLATELET COUNT 141 10x3/uL (130-400); RBC 3.75 10x6/uL (4.00-5.40); RDW 16.2 % (11.5-14.5); WBC 16.1 10x3/uL (4.8-10.8)
[2018-08-09 05:51] LABS: ALBUMIN 2.7 g/dL (3.4-5.0); ANION GAP 13.6 mmol/L (8-16); BILIRUBIN - TOTAL 0.34 mg/dL (0.2-1.3); CALCIUM 8.8 mg/dL (8.5-10.1); CARBON DIOXIDE 23.9 mmol/L (21.0-32.0); CREATININE - SERUM 1.1 mg/dL (0.6-1.3); MAGNESIUM - SERUM 2.3 mg/dL (1.8-2.4); POTASSIUM - SERUM 4.5 mmol/L (3.5-5.1); PROTEIN - SERUM 5.7 g/dL (6.4-8.2)
[2018-08-09 09:32] VITALS: BP 159/74
[2018-08-09 13:17] VITALS: BP 160/69
[2018-08-09 17:22] VITALS: BP 153/69
[2018-08-09 20:30] VITALS: BP 177/83
[2018-08-10 00:30] VITALS: BP 165/71
[2018-08-10 04:30] VITALS: BP 170/73
[2018-08-10 06:06] LABS: BASOPHILS 0.1 % (0-2); EOSINOPHILS 0.1 % (0-7); HEMATOCRIT 32.9 % (36.0-48.0); HEMOGLOBIN 10.7 g/dL (12-16); IMMATURE GRANULOCYTES 2.7 % (0-5); LYMPHOCYTES 4.7 % (15-50); MCH 28.8 pg (26.0-34.0); MCHC 32.5 g/dL (31.0-37.0); MCV 88.7 fL (80.0-100.0); MEAN PLATELET VOLUME 10.3 fL (7.4-10.4); MONOCYTES 2.7 % (2-11); NEUTROPHILS 89.7 % (40-80); PLATELET COUNT 130 10x3/uL (130-400); RBC 3.71 10x6/uL (4.00-5.40); RDW 16.2 % (11.5-14.5)
[2018-08-10 06:32] LABS: ALBUMIN 2.6 g/dL (3.4-5.0); ANION GAP 15.1 mmol/L (8-16); BILIRUBIN - TOTAL 0.43 mg/dL (0.2-1.3); CARBON DIOXIDE 23.3 mmol/L (21.0-32.0); MAGNESIUM - SERUM 2.1 mg/dL (1.8-2.4); POTASSIUM - SERUM 4.4 mmol/L (3.5-5.1); PROTEIN - SERUM 5.8 g/dL (6.4-8.2)
[2018-08-10 08:24] VITALS: BP 135/70
[2018-08-10] MEDS ORDERED: PROTONIX40 MG PO (11:25)
[2018-08-10] MEDS ORDERED: LEVOFLOXACIN500 MG PO (11:25)
[2018-08-10] MEDS ORDERED: STERAPRED DS 1010 MG PO (11:26)
== END 2018-08-10 13:52 | disposition home or self-care (01) | DRG 193 ==
LOC: D.ER 08:30 → D.M2 10:54 → D.EDHOLD 10:54 → D.SDCHOLD 10:59 → D.EDHOLD 11:02 → D.M2 12:10
PROVIDERS: Family Medicine; Family Medicine Adult Medicine
DX: J18.1 Lobar pneumonia, unspecified organism (principal); J96.21 Acute and chronic respiratory failure with hypoxia; J44.0 Chronic obstructive pulmonary disease with (acute) lower respiratory infection; J44.1 Chronic obstructive pulmonary disease with (acute) exacerbation; E03.9 Hypothyroidism, unspecified; G47.33 Obstructive sleep apnea (adult) (pediatric); I11.0 Hypertensive heart disease with heart failure; I50.9 Heart failure, unspecified; I25.10 Atherosclerotic heart disease of native coronary artery without angina pectoris; F32.9 Major depressive disorder, single episode, unspecified; Y95 Nosocomial condition

== ENCOUNTER 2018-09-07 10:06 | Inpatient (IN) | payer MEDICARE, OTHER ==
[~2018-09-07] VITALS: Ht 157.5 cm; Wt 90.7 kg
[~2018-09-07 10:06] MED LIST changes: +LEVOFLOXACIN500 MG PO; +PROTONIX40 MG PO; +STERAPRED DS 1010 MG PO
[2018-09-07 11:15] LABS: BASOPHILS 0.8 % (0-2); EOSINOPHILS 4.8 % (0-7); HEMATOCRIT 32.1 % (36.0-48.0); HEMOGLOBIN 10.4 g/dL (12-16); IMMATURE GRANULOCYTES 1.4 % (0-5); LYMPHOCYTES 25.6 % (15-50); MCH 29.5 pg (26.0-34.0); MCHC 32.4 g/dL (31.0-37.0); MCV 90.9 fL (80.0-100.0); MEAN PLATELET VOLUME 9.1 fL (7.4-10.4); MONOCYTES 12.6 % (2-11); NEUTROPHILS 54.8 % (40-80); RBC 3.53 10x6/uL (4.00-5.40); WBC 7.2 10x3/uL (4.8-10.8)
[2018-09-07 11:18] LABS: PLATELET COUNT 281 10x3/uL (130-400)
[2018-09-07 11:30] LABS: APTT 28.3 SECONDS (22.8-39.4); INR 1.1 (0.85-1.17); PROTIME 13.7 SECONDS (11.6-15.0)
[2018-09-07 11:35] LABS: ALKALINE PHOSPHATASE 85 U/L (46-116); ALT (SGPT) 24 U/L (10-68); BILIRUBIN - TOTAL 0.42 mg/dL (0.2-1.3); CALC OSMOLALITY 281 mosm/kg (275-300); CALCIUM 9.3 mg/dL (8.5-10.1); CARBON DIOXIDE 25.4 mmol/L (21.0-32.0); CHLORIDE - SERUM 108 mmol/L (98-107); GLUCOSE 107 mg/dL (74-106); POTASSIUM - SERUM 3.6 mmol/L (3.5-5.1); PROTEIN - SERUM 6.7 g/dL (6.4-8.2); SODIUM 142 mmol/L (136-145); UREA NITROGEN 11 mg/dL (7-18); eGFR NON AFRICAN AMERICAN 57 mL/min (90-120)
[2018-09-07 11:47] LABS: CKMB 0.9 U/L (0.0-3.6); CREATINE KINASE 43 UL (21-215); PRO BNP 403 pg/mL (0-450); TROPONIN-I < 0.017 ng/mL (0.000-0.060)
--- NOTE | 2018-09-07 11:48 | NUR ---
PT STABLE, CALL LIGHT WITHIN REACH, DENIES NEEDS, WILL CONTINUE TO MONITOR.
[2018-09-07 12:05] VITALS: BP 135/58
[2018-09-07 13:04] VITALS: BP 135/59
--- NOTE | 2018-09-07 13:06 | NUR ---
PT STABLE, CALL LIGHT WITHIN REACH, DENIES NEEDS, WILL CONTINUE TO MONITOR.
[2018-09-07 14:02] VITALS: BP 141/61
--- NOTE | 2018-09-07 14:08 | NUR ---
PT GONE FOR SCANS, PT STABLE AT THIS TIME.
--- NOTE | 2018-09-07 15:09 | NUR ---
PT STABLE, CALL LIGHT WITHIN REACH, DENIES NEEDS, WILL CONTINUE TO MONITOR.
--- NOTE | 2018-09-07 17:20 | NUR ---
PT STABLE, CALL LIGHT WITHIN REACH, DENIES NEEDS, WILL CONTINUE TO MONITOR.
--- NOTE | 2018-09-07 19:12 | NUR ---
PT REPORT HANDED OFF TO UGO, DINNER TRAY PROVIDED. PT STABLE, CALL LIGHT WITHIN REACH.
[2018-09-07 19:19] VITALS: BP 144/67
--- NOTE | 2018-09-07 19:22 | NUR ---
PATIENT LYING IN BED WATCHING TV. SHE IS AWAKE AND ALERT, ORIENTED x4. RESPIRATIONS EVEN AND UNLABORED. NO NEEDS NOTED. UPDATED ON PLAN OF CARE AND DELAYS IN CARE. SHE ATE ALL OF THE FOOD GIVEN. WILL CONTINUE TO MONITOR.
[2018-09-07] MEDS ORDERED: MUCINEX600 MG PO (20:36)
[2018-09-07] MEDS ORDERED: PROBIOTIC1 EAC1 PO (20:37)
[2018-09-07 20:59] VITALS: BP 156/65; BMI 36.6
[2018-09-08] VITALS: BP 137/57
[2018-09-08 01:05] LABS: CKMB 0.8 U/L (0.0-3.6); CREATINE KINASE 33 UL (21-215); TROPONIN-I < 0.017 ng/mL (0.000-0.060)
[2018-09-08 04:00] VITALS: BP 142/59
--- NOTE | 2018-09-08 06:28 | NUR ---
REPORT CALLED TO THIS NURSE BY [facility]GO IN ER. BROUGHT TO FLOOR IN W/C ACCOMPANIED BY STAFF. DR. AQUINO CAME IN TO SEE PT. WITH NEW ORDERS. PT AWARE OF NEW ORDERS. ALERT AND ORIENTED X4. NO C.O VOICED THIS SHIFT. WILL CONT. POC.
[2018-09-08 07:42] LABS: BASOPHILS 0.5 % (0-2); EOSINOPHILS 5.7 % (0-7); HEMOGLOBIN 9.4 g/dL (12-16); IMMATURE GRANULOCYTES 1.3 % (0-5); LYMPHOCYTES 25.3 % (15-50); MCH 29.3 pg (26.0-34.0); MCHC 32.4 g/dL (31.0-37.0); MCV 90.3 fL (80.0-100.0); MONOCYTES 15.2 % (2-11); PLATELET COUNT 253 10x3/uL (130-400); RBC 3.21 10x6/uL (4.00-5.40); RDW 18.3 % (11.5-14.5); WBC 5.6 10x3/uL (4.8-10.8)
[2018-09-08 08:02] VITALS: BP 136/63
--- NOTE | 2018-09-08 08:02 | NUR ---
SHIFT ASSESSMENT COMPLETED AT THIS TIME. PT IS AA0X3. HR-RRR, PPP, BREATH SOUNDS CLEAR BUT DIMINSHED X2. BOWEL SOUNDS ACTIVE X4. SL NOTED TO LT HAND WITH DRESSING C/D/I AND WITHOUT ERYTHEMA OR EDEMA NOTED TO SITE. PT DENIES PAIN, N/V/D OR NEEDS. BED LOW, WHEELS LOCKED, CALL LIGHT AND PHONE WITHIN REACH, SIDE RAILS UP X2.
[2018-09-08 08:18] LABS: ALBUMIN 2.6 g/dL (3.4-5.0); ALKALINE PHOSPHATASE 70 U/L (46-116); ALT (SGPT) 26 U/L (10-68); BILIRUBIN - TOTAL 0.34 mg/dL (0.2-1.3); CALC OSMOLALITY 287 mosm/kg (275-300); CALCIUM 9.4 mg/dL (8.5-10.1); CHLORIDE - SERUM 110 mmol/L (98-107); CKMB 0.7 U/L (0.0-3.6); CREATINE KINASE 35 UL (21-215); CREATININE - SERUM 0.9 mg/dL (0.6-1.3); GLUCOSE 95 mg/dL (74-106); POTASSIUM - SERUM 3.6 mmol/L (3.5-5.1); PROTEIN - SERUM 5.7 g/dL (6.4-8.2); SODIUM 145 mmol/L (136-145); TROPONIN-I < 0.017 ng/mL (0.000-0.060); UREA NITROGEN 11 mg/dL (7-18); eGFR NON AFRICAN AMERICAN 64 mL/min (90-120)
[2018-09-08 10:12] VITALS: BMI 36.6
--- NOTE | 2018-09-08 10:15 | NUR ---
URINE COLLECTED FOR UA AT THIS TIME. PT UP AND AMB IN ROOM WITHOUT C/O OR NEEDS VOICED.
[2018-09-08 13:06] LABS: CKMB 0.6 U/L (0.0-3.6); CREATINE KINASE 38 UL (21-215); TROPONIN-I < 0.017 ng/mL (0.000-0.060)
[2018-09-08 13:17] LABS: APPEARANCE HAZY (CLEAR); BACTERIA FEW /hpf (NONE SEEN); BILIRUBIN NEGATIVE (NEGATIVE); COLOR YELLOW (YELLOW); EPITHELIAL CELLS 0-5 /hpf (0-5); GLUCOSE NEGATIVE (NEGATIVE); KETONE NEGATIVE (NEGATIVE); MUCUS <1+ /lpf (NONE SEEN); NITRITE NEGATIVE (NEGATIVE); PROTEIN NEGATIVE (NEGATIVE); SPECIFIC GRAVITY 1.015 (1.005-1.020); UROBILINOGEN NORMAL (NORMAL); WHITE CELLS - URINE 0-5 /hpf (0-5)
--- NOTE | 2018-09-08 13:40 | NUR ---
FLU SWAB COLLECTED AT THIS TIME. PT ASKS ABOUT NPO STATUS. ADV CARDIOLOGY WAS CONSULTED AND MAY DECIDE TO DO A STRESS TEST PER DR AQUINO ADV THIS AFTERNOON. PT VERBALIZES UNDERSTANDING AND DENIES FURTHER NEEDS AT THIS TIME.
[2018-09-08 13:42] VITALS: BP 138/58
[2018-09-08 15:58] VITALS: Ht 157.5 cm; Wt 90.7 kg
--- NOTE | 2018-09-08 16:07 | NUR ---
CARDIOLOGY ON UNIT AND TO PT ROOM AT THIS TIME.
--- NOTE | 2018-09-08 16:54 | NUR ---
PT REQUESTS AND RECEIVES HOT TEA. [facility] DIET MEAL TRAY SERVED. PT DENIES FURTHER NEEDS AT THIS TIME.
[2018-09-08 17:00] VITALS: BP 127/65
--- NOTE | 2018-09-08 18:56 | NUR ---
SOLU METROL GIVEN PER ORDERS. SEE EMAR FOR ADMINISTRATION. ICE WATER PROVIDED PER PT REQUEST. PT DENIES FURTHER NEEDS. WILL CONT TO MONITOR. PRN.
--- NOTE | 2018-09-08 19:23 | NUR ---
PM ROUNDS MADE, PT WATCHING TV, INFORMED PT THAT I WILL BE BACK SHORTLY TO DO ASSESSMENT, PT VERBALIZES UNDERSTANDING, DENIES NEEDS OR PAIN AT THIS TIME, BED IN LOW POSITION, SIDE RAILS X 2, CALL LIGHT IN REACH
[2018-09-08 20:45] VITALS: BP 169/71
--- NOTE | 2018-09-08 20:45 | NUR ---
ASSESSMENT PER FLOW SHEET, VS OBTAINED PER MARIN DANGELO RN, SALINE LOCK IN LEFT HAND INTACT WITH NO REDNESS OR EDEMA, PT REPORTS FLATUS, BM, AND VOIDING WITH NO DIFFICULTY, TELEMETRY IN PLACE, PT DENIES NEEDS OR PAIN AT THIS TIME, BED IN LOW POSITION, SIDE RAILS X 2, CALL LIGHT IN REACH
--- NOTE | 2018-09-08 21:43 | NUR ---
ADM 2100 MEDS PER MD ORDERS, SEE EMAR, WITH FRESH H20, PT DENIES FURTHER NEEDS OR PAIN AT THIS TIME, BED IN LOW POSITION, SIDE RAILS X 2, CALL LIGHT IN REACH
--- NOTE | 2018-09-08 22:00 | NUR ---
PT AWAKE, CELL PHONE BATTERY RUNNING LOW, LET PT BORROW CELL PHONE BUSINESS DEAN TO CHARGE PHONE, PT STATES "OH, THANK YOU SO MUCH, THAT'S GREAT", PT DENIES FURTHER NEEDS
--- NOTE | 2018-09-08 22:48 | NUR ---
PT STANDING AT ROOM DOOR, MOTIONS FOR ME TO COME IN THERE, PT WANTED TO TELL ME ABOUT SOMEONE CALLING HER TODAY ABOUT HER MEDICARE CARD, STATES "I KNEW IT WAS PROBABLY A SCAM BECAUSE I COULD TELL HE WAS A FOREIGNER AND HE HUNG UP AFTER I TOLD HIM THERE WAS NOTHING WRONG WITH MY MEDICARE CARD, BECAUSE I WAS IN THE HOSPITAL", PT CONTINUES "I JUST WANTED TO LET YOU KNOW SO YOU COULD TELL OTHER PEOPLE ABOUT IT"
[2018-09-09 00:30] VITALS: BP 148/83
--- NOTE | 2018-09-09 00:30 | NUR ---
CAMPUS MANAGER OBTAINS VITAL SIGNS AT THIS TIME
--- NOTE | 2018-09-09 00:46 | NUR ---
PT AWAKE, READING BOOK, SALINE LOCK FLUSHED, ADM SOLUMEDROL OVER 5 MINUTES, SALINE LOCK FLUSHED, PT DENIES NEEDS OR PAIN, BED IN LOW POSITION, SIDE RAILS X 2, CALL LIGHT IN REACH
--- NOTE | 2018-09-09 03:30 | NUR ---
PT RESTING WITH EYES CLOSED, RESP QUIET, NO DISTRESS NOTED, LEFT UNDISTURBED AT THIS TIME, BED IN LOW POSITION, SIDE RAILS X 2, CALL LIGHT IN REACH
[2018-09-09 05:03] VITALS: BP 149/68
--- NOTE | 2018-09-09 05:03 | NUR ---
PT AWAKE, VS OBTAINED, ADM 0600 MED PER MD ORDERS, PT DENIES NEEDS OR PAIN AT THIS TIME, BED IN LOW POSITION, SIDE RAILS X 2, CALL LIGHT IN REACH
[2018-09-09 06:24] LABS: BASOPHILS 0.4 % (0-2); EOSINOPHILS 0.7 % (0-7); HEMATOCRIT 31.9 % (36.0-48.0); HEMOGLOBIN 10.4 g/dL (12-16); LYMPHOCYTES 15.2 % (15-50); MCH 29.1 pg (26.0-34.0); MCHC 32.6 g/dL (31.0-37.0); MCV 89.4 fL (80.0-100.0); MEAN PLATELET VOLUME 9.3 fL (7.4-10.4); NEUTROPHILS 80.7 % (40-80); PLATELET COUNT 289 10x3/uL (130-400); RBC 3.57 10x6/uL (4.00-5.40); RDW 17.5 % (11.5-14.5)
[2018-09-09 06:32] LABS: WBC 7.2 10x3/uL (4.8-10.8)
[2018-09-09 06:43] LABS: ANION GAP 16.8 mmol/L (8-16); CALCIUM 9.3 mg/dL (8.5-10.1); CARBON DIOXIDE 23.2 mmol/L (21.0-32.0)
[2018-09-09 08:16] VITALS: BP 117/75
--- NOTE | 2018-09-09 08:16 | NUR ---
SHIFT ASSESSMENT COMPLETED AT THIS TIME. PT IS AAOX3. HR-RRR, PPP, SL TO LT HAND PATENT, C/D/I WITHOUT ERYTHEMA OR EDEMA TO SITE. BREATH SOUNDS CLEAR & UNLABORED X2, ALTHOUGH PT REMAINS SHORT OF BREATH SHE STATES, "I FEEL MUCH BETTER TODAY. MORE LIKE MY NORMAL SELF AND I'M MUCH LESS TIRED THAN I WAS." PT ASKS "WILL I GET TO GO HOME TODAY?" ADV PT THAT MD WILL MAKE ROUNDS TODAY WITH POC. PT VERBALIZES UNDERSTANDING. BOWEL SOUNDS ACTIVE X4. PT ALSO INQUIRES ABOUT SHOWER SUPPLIES. SOAP, BLUE SOCKS, ADULT DEPENDS, TOWELS AND WASH CLOTHES, TOOTH PASTE AND TOOTH BRUSH PROVIDED. PT DENIES FURTHER NEEDS AT THIS TIME. BED LOW, WHEELS LOCKED, CALL LIGHT AND PHONE WITHIN REACH, SIDE RAILS UP X2.
--- NOTE | 2018-09-09 08:55 | NUR ---
U/S TO ROOM FOR ECHO AT THIS TIME.
--- NOTE | 2018-09-09 09:45 | NUR ---
SCHEDULED MEDS GIVEN PER ORDERS. SEE EMAR FOR ADMINISTRATION. PT TOLERATED WELL. TELEMETRY REMAINS IN PLACE. PT DENIES FURTHER NEEDS AT THIS TIME. WILL CONT TO MONITOR.
--- NOTE | 2018-09-09 10:52 | NUR ---
BHUPENDRA JI TO ROOM TO DISCUSS POC WITH PT. PLANS FOR D/C TO HOME LATER TODAY. NO NEW ORDERS RCVD.
[2018-09-09] MEDS ORDERED: STERAPRED DS 1010 MG PO (11:27)
--- NOTE | 2018-09-09 11:58 | NUR ---
STACY, CASE MANAGEMENT CALLS AND WILL BE ON UNIT MARINE TO SET UP HOUSE CALLS FOR PT.
--- NOTE | 2018-09-09 12:02 | NUR ---
THERAPEUTIC RECREATION DIRECTOR CALLED AND INFORMED THAT PT HAS A D/C ORDER AND TELEMETRY WILL BE REMOVED.
--- NOTE | 2018-09-09 12:40 | NUR ---
STACY WITH CASE MANAGEMENT TO PT ROOM AT THIS TIME.
--- NOTE | 2018-09-09 12:58 | NUR ---
D/C INSTRUCTIONS EXPLAINED, SIGNED, AND WITNESSED. HAND OUT FOR HOUSE CALLS PROVIDED. PT DENIES FURTHER QUESTIONS OR CONCERNS. WILL CALL FOR W/C TRANSPORT.
--- NOTE | 2018-09-09 13:01 | NUR ---
PT OFF UNIT VIA W/C PER VOLUNTEER TO AWAITING RIDE.
--- NOTE | 2018-09-09 13:10 | MORECARE ---
CASE MANAGEMENT DISCHARGE SUMMARY PATIENT: SHI SERRANO UNIT: [id number] ADM DATE: 09/07/18 AGE: 78 : 41 SEX: F ROOM/BED: D.1220 AUTHOR: IRAIDA HYLTON PHYSICIAN: REFERRING PHYSICIAN: BLANCHE AQUINO MD DATE OF SERVICE: 09/09/18 Discharge Plan Patient Name: SHI SERRANO Facility: [facility]:[place] : 1940 Planned Disposition: Anticipated Discharge Date: 09/09/18 Discharge Date: Expected LOS: 2 Initial Reviewer: [id number] Initial Review Date: 09/09/2018 Generated: 09/09/18 2:10 pm Coverage Notice Reviewer: [email or web address] Annie Gonzalez Notice Issued Date-Time: 09/09/2018 12:49 Notice Type: IM Discharge Notice Notice Delivered To: Patient Relationship to Patient: Self Labor Relations Officer Name: Delivery Method: HAND - Hand Delivered Krystina Days: Prior Verbal Notification: Recipient Understood Notice: Yes Recipient Signature: Yes Med Rec Note Co-signed by Attending: Coverage Notice Comment: Patient Name: SHI SERRANO Page [phone] at 1310 All edits/amendments must be made on the electronic document DICTATION DATE: 09/09/18 1310 THORACIC MEDICINE PHYSICIAN: JEANETTE 09/09/18 1310 RPT#: [id number] DC DATE: STATUS: ADM IN [place] [address] [place] [address] END OF REPORT
--- NOTE | 2018-09-09 14:10 | MORECARE ---
CASE MANAGEMENT DISCHARGE SUMMARY PATIENT: SHI SERRANO UNIT: [id number] ADM DATE: 09/07/18 AGE: 78 : 41 SEX: F ROOM/BED: D.1220 AUTHOR: IRAIDA HYLTON PHYSICIAN: REFERRING PHYSICIAN: BLANCHE AQUINO MD DATE OF SERVICE: 09/09/18 Discharge Plan Patient Name: SHI SERRANO Facility: [facility]:[place] : 1940 Planned Disposition: Anticipated Discharge Date: 09/09/18 Discharge Date: 09/09/2018 Expected LOS: 2 Initial Reviewer: [email or web address] Initial Review Date: 09/09/2018 Generated: 09/09/18 3:10 pm DCPIA - Discharge Planning Initial Assessment Updated by [email or web address]: Surekha Gonzalez on 09/09/18 2:08 pm * Is the patient Alert and Oriented? Yes * Pharmacy [facility] * Preadmission Environment Home Alone * ADLs Independent * Equipment Cane Nebulizer Oxygen Walker * List name and contact numbers for known caregivers / representatives who currently or will assist patient after discharge: MARVA, * Community resources currently utilized Home Health * Please name any agencies selected above. [facility], [facility] * Additional services required to return to the preadmission environment? Yes * Can the patient safely return to the preadmission environment? Yes * Has this patient been hospitalized within the prior 30 days at any hospital? Yes Coverage Notice Reviewer: [email or web address] - Surekha Gonzalez Notice Issued Date-Time: 09/09/2018 12:49 Notice Type: IM Discharge Notice Notice Delivered To: Patient Relationship to Patient: Self Upstream Biomanufacturing Technician Name: Delivery Method: HAND - Hand Delivered Krystina Days: Prior Verbal Notification: Recipient Understood Notice: Yes Recipient Signature: Yes Med Rec Note Co-signed by Attending: Coverage Notice Comment: Last DP export: 09/09/18 12:10 p Patient Name: SHI SERRANO Page [id number] at 1410 All edits/amendments must be made on the electronic document DICTATION DATE: 09/09/18 1410 BUILDING CONSTRUCTION FOREMAN: JEANETTE 09/09/18 1410 RPT#: [id number] DC DATE:09/09/18 STATUS: DIS IN [facility] [address] [place] [address] END OF REPORT
--- NOTE | 2018-09-09 14:20 | MORECARE ---
CASE MANAGEMENT DISCHARGE SUMMARY PATIENT: SHI SERRANO UNIT: [id number] ADM DATE: 09/07/18 AGE: 78 : 41 SEX: F ROOM/BED: D.1220 AUTHOR: IRAIDA HYLTON PHYSICIAN: REFERRING PHYSICIAN: BLANCHE AQUINO MD DATE OF SERVICE: 09/09/18 Discharge Plan Patient Name: SHI SERRANO Facility: [facility]:[place] : 1940 Planned Disposition: Anticipated Discharge Date: 09/09/18 Discharge Date: 09/09/2018 Expected LOS: 2 Initial Reviewer: [email or web address] Initial Review Date: 09/09/2018 Generated: 09/09/18 3:20 pm Comments DCP- Discharge Planning Updated by [email or web address]: Surekha Gonzalez on 09/09/18 1:[address] Patient Name: SHI SERRANO Admission Status: ER Accout number: [id number] Admission Date: 09-07-2018 : 1940 Admission Diagnosis: Attending: BLANCHE AQUINO Current LOS: 2 Anticipated DC Date: 09-09-2018 Planned Disposition: Primary Insurance: MEDICARE A & B LATE ENTRY 1249 Discharge Planning Comments: CM MET WITH PATIENT AND FAMILY ABOUT DC PLANNING/NEEDS. DENIES NEEDS, HAS HH WITH [facility]. I FAXED PAPERS FOR HOUSE CALLS, PATIENT IS FAMILIAR WITH HOUSE CALLS. LIVES ALONE BUT HAS NEIGHBORS THAT ARE FRIENDS AND HELP HER IF SHE NEEDS IT. CM WILL FOLLOW AND ASSIST NEEDED WITH DC PLANNING/NEEDS. Otr Tanker Truck Driver: Surekha Gonzalez DCPIA - Discharge Planning Initial Assessment Updated by [id number]: Surekha Gonzalez on 09/09/18 2:08 pm * Is the patient Alert and Oriented? Yes * Pharmacy [facility] * Preadmission Environment Home Alone * ADLs Independent * Equipment Cane Nebulizer Oxygen Walker * List name and contact numbers for known caregivers / representatives who currently or will assist patient after discharge: MARVA [phone] * Community resources currently utilized Home Health * Please name any agencies selected above. [facility], [facility] * Additional services required to return to the preadmission environment? Yes * Can the patient safely return to the preadmission environment? Yes * Has this patient been hospitalized within the prior 30 days at any hospital? Yes Coverage Notice Reviewer: [email or web address] Annie Gonzalez Notice Issued Date-Time: 09/09/2018 12:49 Notice Type: IM Discharge Notice Notice Delivered To: Patient Relationship to Patient: Self Training And Development Officer Name: Delivery Method: HAND - Hand Delivered Krystina Days: Prior Verbal Notification: Recipient Understood Notice: Yes Recipient Signature: Yes Med Rec Note Co-signed by Attending: Coverage Notice Comment: Last DP export: 09/09/18 1:10 p Patient Name: SHI SERRANO Page [id number] at 1420 All edits/amendments must be made on the electronic document DICTATION DATE: 09/09/181419 FISH CHECKER: JEANETTE 09/09/181419 RPT#: [id number] DC DATE:09/09/18 STATUS: DIS IN [facility] [address] [place] [address] END OF REPORT
--- NOTE | 2018-09-09 17:43 | MORECARE ---
CASE MANAGEMENT DISCHARGE SUMMARY PATIENT: SHI SERRANO UNIT: [id number] ADM DATE: 09/07/18 AGE: 78 : 41 SEX: F ROOM/BED: D.1220 AUTHOR: IRAIDA HYLTON PHYSICIAN: REFERRING PHYSICIAN: BLANCHE AQUINO MD DATE OF SERVICE: 09/09/18 Discharge Plan Patient Name: SHI SERRANO Facility: [facility]:[place] : 1940 Planned Disposition: Anticipated Discharge Date: 09/09/18 Discharge Date: 09/09/2018 Expected LOS: 2 Initial Reviewer: [email or web address] Initial Review Date: 09/09/2018 Generated: 09/09/18 6:43 pm Comments DCP- Discharge Planning Updated by [id number]: Surekha Gonzalez on 09/09/18 1:[address] Patient Name: SHI SERRANO Admission Status: ER Accout number: [id number] Admission Date: 09-07-2018 : 1940 Admission Diagnosis: Attending: BLANCHE AQUINO Current LOS: 2 Anticipated DC Date: 09-09-2018 Planned Disposition: Primary Insurance: MEDICARE A & B LATE ENTRY 1249 Discharge Planning Comments: CM MET WITH PATIENT AND FAMILY ABOUT DC PLANNING/NEEDS. DENIES NEEDS, HAS HH WITH [facility]. I FAXED PAPERS FOR HOUSE CALLS, PATIENT IS FAMILIAR WITH HOUSE CALLS. LIVES ALONE BUT HAS NEIGHBORS THAT ARE FRIENDS AND HELP HER IF SHE NEEDS IT. CM WILL FOLLOW AND ASSIST NEEDED WITH DC PLANNING/NEEDS. Acetylene Gas Compressor: Surekha Gonzalez DCPIA - Discharge Planning Initial Assessment Updated by [id number]: Surekha Gonzalez on 09/09/18 2:08 pm * Is the patient Alert and Oriented? Yes * [facility]acy [facility] * Preadmission Environment Home Alone * ADLs Independent * Equipment Cane Nebulizer Oxygen Walker * List name and contact numbers for known caregivers / representatives who currently or will assist patient after discharge: MARVA [phone] * Community resources currently utilized Home Health * Please name any agencies selected above. [facility], [facility] * Additional services required to return to the preadmission environment? Yes * Can the patient safely return to the preadmission environment? Yes * Has this patient been hospitalized within the prior 30 days at any hospital? Yes Coverage Notice Reviewer: [id number] Annie Gonzalez Notice Issued Date-Time: 09/09/2018 12:49 Notice Type: IM Discharge Notice Notice Delivered To: Patient Relationship to Patient: Self Oil Driller Name: Delivery Method: HAND - Hand Delivered Krystina Days: Prior Verbal Notification: Recipient Understood Notice: Yes Recipient Signature: Yes Med Rec Note Co-signed by Attending: Coverage Notice Comment: Last DP export: 09/09/18 1:20 p Patient Name: SHI SERRANO Page 49090 at 1743 All edits/amendments must be made on the electronic document DICTATION DATE: 09/09/181742 MOLDING MACHINE TENDER: JEANETTE 09/09/181742 RPT#: [id number] DC DATE:09/09/18 STATUS: DIS IN [facility] [address] [place] [address] END OF REPORT
--- NOTE | 2018-09-10 12:30 | MORECARE ---
CASE MANAGEMENT DISCHARGE SUMMARY PATIENT: SHI SERRANO UNIT: [id number] ADM DATE: 09/07/18 AGE: 78 : 41 SEX: F ROOM/BED: D.1220 AUTHOR: CONCETTA,DOC PHYSICIAN: REFERRING PHYSICIAN: BLANCHE AUQINO MD DATE OF SERVICE: 09/10/18 Discharge Plan Patient Name: SHI SERRANO Facility: [facility]:[place] : 1940 Planned Disposition: Anticipated Discharge Date: 09/09/18 Discharge Date: 09/09/2018 Expected LOS: 2 Initial Reviewer: [email or web address] Initial Review Date: 09/09/2018 Generated: 09/10/18 1:30 pm Comments DCP- Discharge Planning Updated by [email or web address]: June Young on 09/10/18 11:[address] CM contacted by Conception with [facility] stating they did not get notified that their patient discharged home yesterday. CM provided copy of record as requested. Agency will resume home health services tomorrow. DCP- Discharge Planning Updated by [email or web address]: Surekha Gonzalez on 09/09/18 1:[address] Patient Name: SHI SERRANO Admission Status: ER Accout number: [id number] Admission Date: 09-07-2018 : 1940 Admission Diagnosis: Attending: BLANCHE AQUINO Current LOS: 2 Anticipated DC Date: 09-09-2018 Planned Disposition: Primary Insurance: MEDICARE A & B LATE ENTRY 1249 Discharge Planning Comments: CM MET WITH PATIENT AND FAMILY ABOUT DC PLANNING/NEEDS. DENIES NEEDS, HAS HH WITH [facility]. I FAXED PAPERS FOR HOUSE CALLS, PATIENT IS FAMILIAR WITH HOUSE CALLS. LIVES ALONE BUT HAS NEIGHBORS THAT ARE FRIENDS AND HELP HER IF SHE NEEDS IT. CM WILL FOLLOW AND ASSIST NEEDED WITH DC PLANNING/NEEDS. Supplier Engineer: Surekha Gonzalez DCPIA - Discharge Planning Initial Assessment Updated by [id number]: Surekha Gonzalez on 09/09/18 2:08 pm * Is the patient Alert and Oriented? Yes * [facility]acy [facility] * Preadmission Environment Home Alone * ADLs Independent * Equipment Cane Nebulizer Oxygen Walker * List name and contact numbers for known caregivers / representatives who currently or will assist patient after discharge: MARVA, * Community resources currently utilized Home Health * Please name any agencies selected above. [facility], [facility] * Additional services required to return to the preadmission environment? Yes * Can the patient safely return to the preadmission environment? Yes * Has this patient been hospitalized within the prior 30 days at any hospital? Yes Coverage Notice Reviewer: [id number] Annie Gonzalez Notice Issued Date-Time: 09/09/2018 12:49 Notice Type: IM Discharge Notice Notice Delivered To: Patient Relationship to Patient: Self Block Cuber Name: Delivery Method: HAND - Hand Delivered Krystina Days: Prior Verbal Notification: Recipient Understood Notice: Yes Recipient Signature: Yes Med Rec Note Co-signed by Attending: Coverage Notice Comment: Last DP export: 09/09/18 4:43 p Patient Name: SHI SERRANO Page [id number] at 1230 All edits/amendments must be made on the electronic document DICTATION DATE: 09/10/18 1230 OPERATING ROOM REGISTERED NURSE: JEANETTE 09/10/18 1230 RPT#: [id number] DC DATE:09/09/18 STATUS: DIS IN [facility] [address] [place] [address] END OF REPORT
--- NOTE | 2018-09-15 10:22 | EC ---
PATIENT:SHI SERRANO DATE OF SERVICE: 09/07/18 SEX: F MEDICAL RECORD: [id number] DATE OF : [birth year] LOCATION:[facility] AGE OF PATIENT: 78 ADMISSION DATE: 09/07/18 REFERRING PHYSICIAN: INTERPRETING PHYSICIAN: SUZY MASTERS MD ECHOCARDIOGRAM REPORT ECHO CHARGES 4 ECHO COMPLETE Date: 09/09/18 CLINICAL DIAGNOSIS: SOB ECHOCARDIOGRAPHIC MEASUREMENTS (adult normal given) AC root (d.<3.7cm) 3.3 cm LV Septum d (<1.2 cm> 0.9 cm Valve Excursion 1.3 cm LV Septum (systole) 1.4 cm Left Atria (s.<4.0cm> 4.2 cm LVPW d(<1.2cm) 1.1 cm RV (d.<2.3cm) 2.4 cm LVPW (sytole) 1.2 cm LV diastole(<5.6CM) 4.5 cm MV E-F(>70mm/sec) cm LV systole 3.1 cm LVOT Diameter 1.5 cm MV exc.(>10mm) cm Est.ejection fraction (50-75%) % DOPPLER: LVIT cm/sec A 100 cm/sec E 71 cm/sec LA cm/sec RVSP 37.9 mmHg LVOT 92 cm/sec AOP1/2T m/s Asc. Ao 156 cm/sec RVOT 58 cm/sec RA cm/sec PA 85 cm/sec AV Gradient Peak 9.7 mmHg AV Mean 4.7 mmHg AV Area 1.1 cm MV Gradient Peak 5.9 mmHg MV Mean 2.8 mmHg MV Area cm COMMENTS: Business Teacher: Caryn BURCIAGA Small Battery Plate Assembler: 1 Dr. Masters TAPE# PACS Pericardial Effusion N DATE OF SERVICE: 09/09/2018 Echocardiogram FINDINGS: 1. Left ventricular chamber size is within normal limits. Left ventricular systolic function is normal. Overall ejection fraction estimated at 60%. 2. Left atrium, right atrium, and right ventricle chamber sizes are within normal limits. 3. Valvular structures have normal structure and motion. ECHOCARDIOGRAM REPORT [id number] SHI SERRANO 4. Doppler interrogation reveals mild tricuspid regurgitation, no other valvular insufficiency or stenosis. Pulmonary systolic pressure is estimated 38 mmHg. 5. No evidence of pericardial effusion or left ventricular thrombus. TRANSINT:[id number] Voice Confirmation ID: [id number] DOCUMENT ID: [id number] SUZY MASTERS MD at 1022 CC: [id number] DICTATION DATE: 09/09/181525 ANCILLARY SPECIALIST: 09/09/182103 DIS IN 09/09/18 [place] [id number] [place] [id number]
== END 2018-09-09 13:01 | disposition home health service (06) | DRG 189 ==
LOC: D.ER 10:06 → D.EDHOLD 14:04 → D.WS 14:04
PROVIDERS: Family Medicine; ADMIT Internal Medicine Nephrology
DX: J96.21 Acute and chronic respiratory failure with hypoxia (principal); J44.1 Chronic obstructive pulmonary disease with (acute) exacerbation; I50.32 Chronic diastolic (congestive) heart failure; I11.0 Hypertensive heart disease with heart failure; I25.10 Atherosclerotic heart disease of native coronary artery without angina pectoris; F32.9 Major depressive disorder, single episode, unspecified; E03.9 Hypothyroidism, unspecified; D50.9 Iron deficiency anemia, unspecified

== ENCOUNTER 2018-09-27 10:52 | Emergency (ER) | payer MEDICARE, OTHER ==
[~2018-09-27] VITALS: Ht 157.5 cm; Wt 99.1 kg
[~2018-09-27 10:52] MED LIST changes: +MUCINEX600 MG PO; +PROBIOTIC1 EAC1 PO
[2018-09-27 10:54] VITALS: Ht 157.5 cm; Wt 99.1 kg
[2018-09-27 11:24] LABS: BASOPHILS 0.3 % (0-2); EOSINOPHILS 16.3 % (0-7); HEMATOCRIT 31.4 % (36.0-48.0); HEMOGLOBIN 10.3 g/dL (12-16); IMMATURE GRANULOCYTES 0.1 % (0-5); LYMPHOCYTES 15.7 % (15-50); MCH 29.8 pg (26.0-34.0); MCHC 32.8 g/dL (31.0-37.0); MCV 90.8 fL (80.0-100.0); MEAN PLATELET VOLUME 9.3 fL (7.4-10.4); MONOCYTES 7.4 % (2-11); NEUTROPHILS 60.2 % (40-80); RBC 3.46 10x6/uL (4.00-5.40); RDW 16.2 % (11.5-14.5); WBC 7.9 10x3/uL (4.8-10.8)
[2018-09-27 11:26] LABS: PLATELET COUNT 161 10x3/uL (130-400)
[2018-09-27 11:44] LABS: ALBUMIN 3.1 g/dL (3.4-5.0); ALKALINE PHOSPHATASE 93 U/L (46-116); ALT (SGPT) 31 U/L (10-68); CALC OSMOLALITY 282 mosm/kg (275-300); CALCIUM 9.1 mg/dL (8.5-10.1); CARBON DIOXIDE 26.2 mmol/L (21.0-32.0); CHLORIDE - SERUM 104 mmol/L (98-107); CREATININE - SERUM 0.8 mg/dL (0.6-1.3); POTASSIUM - SERUM 3.9 mmol/L (3.5-5.1); PROTEIN - SERUM 6.9 g/dL (6.4-8.2); SODIUM 141 mmol/L (136-145); UREA NITROGEN 17 mg/dL (7-18); eGFR NON AFRICAN AMERICAN 74 mL/min (90-120)
[2018-09-27 11:46] LABS: GLUCOSE 102 mg/dL (74-106)
[2018-09-27 11:52] LABS: PRO BNP 135 pg/mL (0-450); TROPONIN-I < 0.017 ng/mL (0.000-0.060)
[2018-09-27] MEDS ORDERED: MEDROL DOSE PACK4 MG PO (13:11)
[2018-09-27 13:38] VITALS: BP 168/74
== END 2018-09-27 13:39 | disposition home or self-care (01) ==
LOC: D.ER 10:52
PROVIDERS: Family Medicine
DX: J44.9 Chronic obstructive pulmonary disease, unspecified (principal); J96.10 Chronic respiratory failure, unspecified whether with hypoxia or hypercapnia; Z99.81 Dependence on supplemental oxygen

== ENCOUNTER 2018-10-16 20:27 | Inpatient (IN) | payer MEDICARE, OTHER ==
[~2018-10-16] VITALS: Ht 157.5 cm; Wt 98.4 kg
[2018-10-16] MEDS ORDERED: FUROSEMIDE20 MG PO (20:34)
[2018-10-16] MEDS ORDERED: KLOR-CON 1010 MEQ (20:35)
[2018-10-16 21:04] LABS: BASOPHILS 0.4 % (0-2); HEMATOCRIT 31.8 % (36.0-48.0); HEMOGLOBIN 10.3 g/dL (12-16); IMMATURE GRANULOCYTES 0.3 % (0-5); LYMPHOCYTES 32.3 % (15-50); MCH 29.3 pg (26.0-34.0); MCHC 32.4 g/dL (31.0-37.0); MCV 90.6 fL (80.0-100.0); MEAN PLATELET VOLUME 9.2 fL (7.4-10.4); RBC 3.51 10x6/uL (4.00-5.40); RDW 14.9 % (11.5-14.5); WBC 7.5 10x3/uL (4.8-10.8)
[2018-10-16 21:08] LABS: PLATELET COUNT 230 10x3/uL (130-400)
[2018-10-16 21:26] LABS: ALBUMIN 3.1 g/dL (3.4-5.0); ALKALINE PHOSPHATASE 140 U/L (46-116); ALT (SGPT) 31 U/L (10-68); BILIRUBIN - TOTAL 0.31 mg/dL (0.2-1.3); CALC OSMOLALITY 283 mosm/kg (275-300); CALCIUM 9.6 mg/dL (8.5-10.1); CARBON DIOXIDE 25.2 mmol/L (21.0-32.0); CHLORIDE - SERUM 104 mmol/L (98-107); GLUCOSE 120 mg/dL (74-106); POTASSIUM - SERUM 3.7 mmol/L (3.5-5.1); PROTEIN - SERUM 6.8 g/dL (6.4-8.2); SODIUM 141 mmol/L (136-145); UREA NITROGEN 17 mg/dL (7-18); eGFR NON AFRICAN AMERICAN 57 mL/min (90-120)
--- NOTE | 2018-10-16 21:29 | NUR ---
PT RESTING IN BED WATCHING TELEVISION, RR EVEN AND UNLABORED, VS WNL, PT DENIES ANY NEEDS AT THIS TIME. WILL CONTINUE TO MONITOR.
[2018-10-16 21:30] VITALS: BP 178/87
[2018-10-16 21:34] LABS: PRO BNP 142 pg/mL (0-450)
[2018-10-16 21:36] LABS: TROPONIN-I < 0.017 ng/mL (0.000-0.060)
--- NOTE | 2018-10-16 22:30 | NUR ---
PT TO RADIOLOGY.
--- NOTE | 2018-10-16 22:53 | NUR ---
PT RETURNED FROM RADIOLOGY.
--- NOTE | 2018-10-16 23:28 | NUR ---
PT ARRIVED ON UNIT VIA STRETCHER. POSITIONED IN BED FOR COMFORT. IV IN LEFT AC REMOVED PER PT REQUEST...PT HAS ANOTHER IV IN LEFT FA.
--- NOTE | 2018-10-16 23:48 | NUR ---
RECEIVED ORDERS FROM DR ARTEAGA / PAYTON SHELBY FOR HS HOME MEDS.
[2018-10-17 01:16] VITALS: BP 135/69; BMI 39.8
[2018-10-17 04:00] VITALS: BP 143/65
--- NOTE | 2018-10-17 07:59 | NUR ---
PT ALERT X 4. SLIGHT EXPIRATORY WHEEZES TO LOWER LOBES, 3L O2 PER NC, SOB. TELEMETRY IN PLACE. +1 EDEMA TO LOWER EXTREMITIES. PT REPORTS LASIX IS WORKING AND HAS URINATED "A LOT" OVERNIGHT. REPORTING NO PAIN. BED LOW, CALL LIGHT IN REACH. NO OTHER NEEDS AT THIS TIME.
[2018-10-17 08:54] VITALS: Ht 157.5 cm; Wt 98.4 kg
[2018-10-17 09:00] VITALS: BP 180/75
[2018-10-17 13:52] LABS: BASOPHILS 0.1 % (0-2); EOSINOPHILS 0.1 % (0-7); HEMATOCRIT 34.6 % (36.0-48.0); HEMOGLOBIN 11.2 g/dL (12-16); IMMATURE GRANULOCYTES 0.3 % (0-5); LYMPHOCYTES 8.1 % (15-50); MCH 29.2 pg (26.0-34.0); MCHC 32.4 g/dL (31.0-37.0); MCV 90.1 fL (80.0-100.0); MEAN PLATELET VOLUME 9.3 fL (7.4-10.4); MONOCYTES 1.3 % (2-11); NEUTROPHILS 90.1 % (40-80); PLATELET COUNT 254 10x3/uL (130-400); RBC 3.84 10x6/uL (4.00-5.40); RDW 14.3 % (11.5-14.5); WBC 9.3 10x3/uL (4.8-10.8)
[2018-10-17 14:06] LABS: ALBUMIN 3.4 g/dL (3.4-5.0); ANION GAP 19.8 mmol/L (8-16); BILIRUBIN - TOTAL 0.34 mg/dL (0.2-1.3); CALCIUM 9.7 mg/dL (8.5-10.1); CARBON DIOXIDE 23.5 mmol/L (21.0-32.0); CREATININE - SERUM 1.1 mg/dL (0.6-1.3); PROTEIN - SERUM 6.9 g/dL (6.4-8.2)
[2018-10-17 14:07] LABS: POTASSIUM - SERUM 4.3 mmol/L (3.5-5.1)
[2018-10-17 14:44] VITALS: BP 161/74
[2018-10-17 18:20] VITALS: BP 150/72
--- NOTE | 2018-10-17 19:00 | NUR ---
BEDSIDE REPORT RECEIVED AND CARE OF PT ASSUMED. PT SITTING ON SIDE OF BED WATCHING TV. IV TO LEFT WRIST SALINE LOCKED. O2 IN USE VIA NC AT 3L. TELEMETRY IN PLACE AND READING SR AT THIS ASSESSMENT. WILL MONITOR FOR NEEDS.
[2018-10-17 20:00] VITALS: BP 159/67
--- NOTE | 2018-10-17 21:02 | NUR ---
HS MEDICATIONS GIVEN. GAVE HOT TEA AND TWYLA CRACKERS FOR HS SNACK. WILL CONTINUE TO MONITOR FOR NEEDS.
[2018-10-18] VITALS: BP 146/70
[2018-10-18 04:00] VITALS: BP 154/72
[2018-10-18 06:50] LABS: ALBUMIN 2.9 g/dL (3.4-5.0); ANION GAP 14.8 mmol/L (8-16); BILIRUBIN - TOTAL 0.25 mg/dL (0.2-1.3); CALCIUM 9.4 mg/dL (8.5-10.1); CARBON DIOXIDE 24.5 mmol/L (21.0-32.0); CREATININE - SERUM 0.9 mg/dL (0.6-1.3); POTASSIUM - SERUM 4.3 mmol/L (3.5-5.1); PROTEIN - SERUM 6.6 g/dL (6.4-8.2)
[2018-10-18 06:53] LABS: BASOPHILS 0 % (0-2); EOSINOPHILS 0.1 % (0-7); HEMATOCRIT 30.7 % (36.0-48.0); HEMOGLOBIN 9.8 g/dL (12-16); IMMATURE GRANULOCYTES 0.3 % (0-5); LYMPHOCYTES 5.7 % (15-50); MCH 28.9 pg (26.0-34.0); MCHC 31.9 g/dL (31.0-37.0); MCV 90.6 fL (80.0-100.0); MEAN PLATELET VOLUME 9.5 fL (7.4-10.4); MONOCYTES 2.3 % (2-11); NEUTROPHILS 91.6 % (40-80); PLATELET COUNT 224 10x3/uL (130-400); RBC 3.39 10x6/uL (4.00-5.40); RDW 14.4 % (11.5-14.5)
[2018-10-18 06:56] LABS: WBC 12.8 10x3/uL (4.8-10.8)
--- NOTE | 2018-10-18 07:45 | NUR ---
PT ALERT X 4. EXPIRATORY WHEEZES TO ALL ELISE, 3L O2 PER NC. TELEMETRY IN PLACE. IV TO LEFT WRIST, SALINE LOCKED. +1 EDEMA TO LOWER EXTREMITIES. BED LOW, CALL LIGHT IN REACH. NO OTHER NEEDS AT THIS TIME.
[2018-10-18 09:41] VITALS: BP 159/75
[2018-10-18 14:08] VITALS: BP 164/83
[2018-10-18 18:25] VITALS: BP 146/67
--- NOTE | 2018-10-18 19:00 | NUR ---
BEDSIDE REPORT RECEIVED AND CARE OF PT ASSUMED. PT SITTING UP ON SIDE OF BED WATCHING TV. IV IN LEFT WRIST SALINE LOCKED. TELEMETRY IN USE AND READING SR AT THIS ASSESSMENT. WILL MONTITOR FOR NEEDS.
--- NOTE | 2018-10-18 20:22 | NUR ---
HS MEDICATIONS GIVEN. WILL CONTINUE TO MONITOR FOR NEEDS.
[2018-10-19] VITALS: BP 124/62
[2018-10-19 04:00] VITALS: BP 167/77
[2018-10-19 07:29] LABS: BASOPHILS 0 % (0-2); EOSINOPHILS 0 % (0-7); HEMATOCRIT 31.8 % (36.0-48.0); HEMOGLOBIN 10.2 g/dL (12-16); IMMATURE GRANULOCYTES 0.4 % (0-5); LYMPHOCYTES 4.8 % (15-50); MCH 28.9 pg (26.0-34.0); MCHC 32.1 g/dL (31.0-37.0); MCV 90.1 fL (80.0-100.0); MEAN PLATELET VOLUME 9.5 fL (7.4-10.4); MONOCYTES 3.8 % (2-11); PLATELET COUNT 234 10x3/uL (130-400); RBC 3.53 10x6/uL (4.00-5.40); RDW 14.6 % (11.5-14.5); WBC 13.6 10x3/uL (4.8-10.8)
[2018-10-19 07:37] LABS: ALBUMIN 3.1 g/dL (3.4-5.0); ANION GAP 16.6 mmol/L (8-16); BILIRUBIN - TOTAL 0.21 mg/dL (0.2-1.3); CALCIUM 9.6 mg/dL (8.5-10.1); CARBON DIOXIDE 23.9 mmol/L (21.0-32.0); CREATININE - SERUM 0.9 mg/dL (0.6-1.3); POTASSIUM - SERUM 4.5 mmol/L (3.5-5.1); PROTEIN - SERUM 6.5 g/dL (6.4-8.2)
--- NOTE | 2018-10-19 08:30 | NUR ---
PATIENT AMBULATING IN ROOM. WAITING FOR BREAKFAST AT THIS TIME. SHOWED A TAPE BURN ON RIGHT MID ARM. IODINE OINTMENT AND TEFLA APPLIED. DRESSING CDI. CALL LIGHT WITHIN REACH.
[2018-10-19 08:54] VITALS: BP 145/56
--- NOTE | 2018-10-19 10:13 | NUR ---
PATIENT SITTING UP IN BED WITH IV INTACT. NO COMPLAINTS. STARTED IV ANTIBIOTICS. STATED SHE IS BEING DC'D. EXPLAINED I HAD TO WAIT FOR ORDERS FOR PAPER WORK. VERBALIZED UNDERSTANDING. CALL LIGHT WITHIN REACH.
--- NOTE | 2018-10-19 10:23 | NUR ---
PATIENT IV REMOVED WITH CATH TIP INTACT. IV OUT OF VEIN AND BURNING PATIENT. WILL SPEAK WITH PHYSICIAN ABOUT HER IV ANTIBIOTICS BC PATIENT DOES NOT WANT A NEW IV RESTARTED BC SHE IS BEING DISCHARGED SHE SAID
--- NOTE | 2018-10-19 12:45 | NUR ---
NOTIFIED MARITZA ABOUT PATIENT REFUSING TO HAVE IV RESTARTED. NO NEW ORDERS AT THIS TIME.
[2018-10-19 12:47] VITALS: BP 132/55
--- NOTE | 2018-10-19 17:09 | MORECARE ---
CASE MANAGEMENT DISCHARGE SUMMARY PATIENT: SHI SERRANO UNIT: [id number] ADM DATE: 10/16/18 AGE: 78 : 41 SEX: F ROOM/BED: D.2230 AUTHOR: IRAIDA HYLTON PHYSICIAN: REFERRING PHYSICIAN: JESSA PATEL MD DATE OF SERVICE: 10/19/18 Discharge Plan Patient Name: SHI SERRANO Facility: [facility]:[place] : 1940 Planned Disposition: Home with Home Health Anticipated Discharge Date: 10/20/18 Discharge Date: Expected LOS: 4 Initial Reviewer: [email or web address] Initial Review Date: 10/19/2018 Generated: 10/19/18 6:09 pm Comments DCP- Discharge Planning Updated by [email or web address]: Blanca Bhat on 10/19/18 4:[address] Patient Name: SHI SERRANO Admission Status: ER Accout number: [id number] Admission Date: 10-16-2018 : 1940 Admission Diagnosis: Attending: JESSA PATEL Current LOS: 3 Anticipated DC Date: 10-20-2018 Planned Disposition: Home with Home Health Primary Insurance: MEDICARE A & B Discharge Planning Comments: CM met with patient to discuss discharge planning, she is alone in the room. States she lives in the main building of [facility] on the second floor. States she uses the elevator to go downstairs. States she is independent with her care. States she no longer drives. She does usually use her cane for ambulation. States [facility] has been helping her with her bathing. States she also has ST and PT with home health. States she feels it is a safe discharge to go home with resumption of [facility]. States her son will take her home on discharge. She has her portable oxygen here. She gets her oxygen and nebulizer supplies from [facility]. Declines need for additional DME. CM will continue to follow and assist with discharge planning/needs. Shank Rander: Blanca Bhat DCPIA - Discharge Planning Initial Assessment Updated by [email or web address]: Blanca Bhat on 10/19/18 5:03 pm * Is the patient Alert and Oriented? Yes * How many steps to enter\exit or inside your home? 0/0 * PCP House Calls * [facility] [address] * Preadmission Environment Assisted Living * Facility Name [facility] * ADLs Partial Dependent * Partial ADLs (Assistance needed) Ambulation * Equipment Cane Nebulizer Other Oxygen Walker * Other Equipment Portable oxygen Call button * List name and contact numbers for known caregivers / representatives who currently or will assist patient after discharge: Raina Valencia [facility] - [phone] [facility] - [phone] * Verbal permission to speak to the caregivers and representatives has been obtained from the patient. Yes * Community resources currently utilized Assisted Living Home Health * Please name any agencies selected above. [facility] * Additional services required to return to the preadmission environment? No * Can the patient safely return to the preadmission environment? Yes * Has this patient been hospitalized within the prior 30 days at any hospital? Yes Patient Name: SHI SERRANO Page 28461 at 1709 All edits/amendments must be made on the electronic document DICTATION DATE: 10/19/181707 WIRE COILER MACHINE OPERATOR: JEANETTE 10/19/181707 RPT#: [id number] DC DATE: STATUS: ADM IN [facility] [address] [place] [address] END OF REPORT
[2018-10-19 17:33] VITALS: BP 154/78
--- NOTE | 2018-10-19 17:52 | NUR ---
PATIENT IN BED WITH NO IV. IV TO BE RESTARTED AFTER SHE EATS. STATED SHE WANTED TO EAT FIRST. REFUSED EARLIER FOR IV TO BE RESTARTED BECAUSE SHE SAID SHE THOUGHT SHE WAS GOING HOME.
--- NOTE | 2018-10-19 18:15 | NUR ---
PATIENT IV RESTARTED IN RIGHT HAND X 2 STICKS AT THIS TIME. PATIENT TOLERATED WITH SMALL AMOUNT OF PAIN. SOLUMEDROL GIVEN. CALL LIGHT WITHIN REACH.
[2018-10-19 20:00] VITALS: BP 141/68
--- NOTE | 2018-10-19 20:10 | NUR ---
LAB COLLECTED AND SENT TO LAB
[2018-10-19 20:41] LABS: APPEARANCE CLEAR (CLEAR); BILIRUBIN NEGATIVE (NEGATIVE); COLOR YELLOW (YELLOW); GLUCOSE NEGATIVE (NEGATIVE); KETONE NEGATIVE (NEGATIVE); NITRITE NEGATIVE (NEGATIVE); PROTEIN NEGATIVE (NEGATIVE); UROBILINOGEN NORMAL (NORMAL)
[2018-10-20] VITALS: BP 159/70
[2018-10-20 04:00] VITALS: BP 154/68
[2018-10-20 07:13] LABS: BASOPHILS 0 % (0-2); EOSINOPHILS 0 % (0-7); HEMATOCRIT 30.9 % (36.0-48.0); HEMOGLOBIN 9.9 g/dL (12-16); IMMATURE GRANULOCYTES 0.4 % (0-5); LYMPHOCYTES 7.9 % (15-50); MCH 28.6 pg (26.0-34.0); MCV 89.3 fL (80.0-100.0); MEAN PLATELET VOLUME 9.5 fL (7.4-10.4); MONOCYTES 4.8 % (2-11); NEUTROPHILS 86.9 % (40-80); PLATELET COUNT 210 10x3/uL (130-400); RBC 3.46 10x6/uL (4.00-5.40); RDW 14.3 % (11.5-14.5); WBC 10.4 10x3/uL (4.8-10.8)
[2018-10-20 07:54] LABS: ALBUMIN 2.9 g/dL (3.4-5.0); ANION GAP 17.4 mmol/L (8-16); BILIRUBIN - TOTAL 0.25 mg/dL (0.2-1.3); CALCIUM 9.5 mg/dL (8.5-10.1); CARBON DIOXIDE 22.1 mmol/L (21.0-32.0); CREATININE - SERUM 0.9 mg/dL (0.6-1.3); POTASSIUM - SERUM 4.5 mmol/L (3.5-5.1); PROTEIN - SERUM 6.3 g/dL (6.4-8.2)
[2018-10-20 08:45] VITALS: BP 146/64
[2018-10-20 13:00] VITALS: BP 155/72
--- NOTE | 2018-10-20 14:18 | NUR ---
[employer]ECT[employer] NOTES - EXPIRATORY WHEEZES TO ALL ELISE, 3L O2 PER NC. PT AMBULATES DESIRED. IV TO LEFT WRIST, PATENT, DRESSING CLEAN DRY AND INTACT. BED LOW, CALL LIGHT IN REACH. NO OTHER NEEDS
--- NOTE | 2018-10-20 14:49 | NUR ---
NUTRITION F/U PT TOLERATING AHA DIET. 50 TO 75% INTAKE RECENT MEALS. WILL CONTINUE TO PROVIDE DIET, MONITOR PO INTAKE. RD FOLLOWING
[2018-10-20 16:45] VITALS: BP 157/66
--- NOTE | 2018-10-20 18:32 | NUR ---
PT IN THE SHOWER AT THIS TIME NO SIGNS OF DISTRESS NOTED
[2018-10-20 22:00] VITALS: BP 132/77
--- NOTE | 2018-10-21 04:34 | NUR ---
REC'D.IVPB COMPLETED SALINE LOCKED PER REQUEST.UP TO BATHRM FE WELL.SOME SOB ON MINIMAL ACTIVITY WITH RESP. DISTRESS OBSERVED. WILL CONTINUE TO MONITOR FOR ANY CHGES. AND FOLLOW CURRENT PLAN OF CARE.
[2018-10-21 05:09] VITALS: BP 150/72
[2018-10-21 06:06] LABS: BASOPHILS 0.1 % (0-2); EOSINOPHILS 0.1 % (0-7); HEMATOCRIT 32.3 % (36.0-48.0); HEMOGLOBIN 10.4 g/dL (12-16); IMMATURE GRANULOCYTES 1.1 % (0-5); LYMPHOCYTES 11.7 % (15-50); MCH 28.7 pg (26.0-34.0); MCHC 32.2 g/dL (31.0-37.0); MCV 89.2 fL (80.0-100.0); MEAN PLATELET VOLUME 9.4 fL (7.4-10.4); MONOCYTES 8.5 % (2-11); NEUTROPHILS 78.5 % (40-80); PLATELET COUNT 229 10x3/uL (130-400); RBC 3.62 10x6/uL (4.00-5.40); RDW 14.3 % (11.5-14.5); WBC 9.7 10x3/uL (4.8-10.8)
[2018-10-21 06:31] LABS: ALBUMIN 2.9 g/dL (3.4-5.0); ANION GAP 16.3 mmol/L (8-16); BILIRUBIN - TOTAL 0.25 mg/dL (0.2-1.3); CALCIUM 9.7 mg/dL (8.5-10.1); CREATININE - SERUM 0.9 mg/dL (0.6-1.3); POTASSIUM - SERUM 4.3 mmol/L (3.5-5.1); PROTEIN - SERUM 6.4 g/dL (6.4-8.2)
--- NOTE | 2018-10-21 07:53 | NUR ---
PATIENT IN BED WITH EYES CLOSED RESTING QUIETLY. NO COMPLAINTS OR SIGNS OF DISTRESS. IV INTACT. CALL LIGHT WITHIN REACH.
--- NOTE | 2018-10-21 08:02 | NUR ---
PATIENT RESP EVEN AND UNLABORED, BED IN LOWEST POSITION, CALL LIGHT IN REACH. NO NEEDS AT THIS TIME, NO SIGNS OR SYMPTOMS OF DISTRESS OF PAIN.
[2018-10-21 08:38] VITALS: BP 156/73
[2018-10-21] MEDS ORDERED: ZITHROMAX250 MG PO (09:34)
[2018-10-21] MEDS ORDERED: PREDNISONE10 MG PO (09:37)
--- NOTE | 2018-10-21 10:22 | MORECARE ---
CASE MANAGEMENT DISCHARGE SUMMARY PATIENT: SHI SERRANO UNIT: [id number] ADM DATE: 10/16/18 AGE: 78 : 41 SEX: F ROOM/BED: D.2230 AUTHOR: IRAIDA HYLTON PHYSICIAN: REFERRING PHYSICIAN: JESSA PATEL MD DATE OF SERVICE: 10/21/18 Discharge Plan Patient Name: SHI SERRANO Facility: [facility]:[place] : 1940 Planned Disposition: Home with Home Health Anticipated Discharge Date: 10/20/18 Discharge Date: Expected LOS: 4 Initial Reviewer: [email or web address] Initial Review Date: 10/19/2018 Generated: 10/21/18 11:22 am Comments DCP- Discharge Planning Updated by [email or web address]: Blanca Bhat on 10/21/18 9:[address] Patient Name: SHI SERRANO Encounter No: [id number] : 1940 Primary Insurance: MEDICARE A & B Anticipated DC Date: 10-20-2018 Planned Disposition: Home with Home Health External Planned Provider: : DCP follow-up note: Patient in agreement with discharge plan. States her son is picking her up. She is going home with [facility]. I called and spoke to Doris and clinical faxed. No changes to plan. Case management will follow and assist as needed. Blanca Home DCP- Discharge Planning Updated by [id number]: Blanca Tranconcepcion on 10/19/18 4:[address] Patient Name: SHI SERRANO Admission Status: ER Accout number: [id number] Admission Date: 10-16-2018 : 1940 Admission Diagnosis: Attending: JESSA PATEL Current LOS: 3 Anticipated DC Date: 10-20-2018 Planned Disposition: Home with Home Health Primary Insurance: MEDICARE A & B Discharge Planning Comments: CM met with patient to discuss discharge planning, she is alone in the room. States she lives in the main building of [facility] on the second floor. States she uses the elevator to go downstairs. States she is independent with her care. States she no longer drives. She does usually use her cane for ambulation. States [place] [facility] has been helping her with her bathing. States she also has ST and PT with home health. States she feels it is a safe discharge to go home with resumption of [place] BENJAMIN. States her son will take her home on discharge. She has her portable oxygen here. She gets her oxygen and nebulizer supplies from [facility] Patient. Declines need for additional DME. CM will continue to follow and assist with discharge planning/needs. Corrections Lieutenant: Blanca Bhat DCPIA - Discharge Planning Initial Assessment Updated by [email or web address]: Blanca Bhat on 10/19/18 5:03 pm * Is the patient Alert and Oriented? Yes * How many steps to enter\exit or inside your home? 0/0 * PCP House Calls * Pharmacy [facility] on [address] * Preadmission Environment Assisted Living * Facility Name [facility] * ADLs Partial Dependent * Partial ADLs (Assistance needed) Ambulation * Equipment Cane Nebulizer Other Oxygen Walker * Other Equipment Portable oxygen Call button * List name and contact numbers for known caregivers / representatives who currently or will assist patient after discharge: [phone] [facility] - [phone] * Verbal permission to speak to the caregivers and representatives has been obtained from the patient. Yes * Community resources currently utilized Assisted Living Home Health * Please name any agencies selected above. [facility] * Additional services required to return to the preadmission environment? No * Can the patient safely return to the preadmission environment? Yes * Has this patient been hospitalized within the prior 30 days at any hospital? Yes Coverage Notice Reviewer: [email or web address] - Blanca Bhat Notice Issued Date-Time: 10/21/2018 10:17 Notice Type: IM Discharge Notice Notice Delivered To: Patient Relationship to Patient: Self Utility Locator Name: Delivery Method: HAND - Hand Delivered Krystina Days: Prior Verbal Notification: Recipient Understood Notice: Yes Recipient Signature: Yes Med Rec Note Co-signed by Attending: Coverage Notice Comment: IMM explained, signed, given, original placed in MR Last DP export: 10/19/18 4:09 p Patient Name: SHI SERRANO Page [id number] at 1022 All edits/amendments must be made on the electronic document DICTATION DATE: 10/21/18 1022 MEDICAID SPECIALIST: JEANETTE 10/21/18 1022 RPT#: [id number] DC DATE: STATUS: ADM IN [facility] [address] [place] [address] END OF REPORT
--- NOTE | 2018-10-21 10:31 | MORECARE ---
CASE MANAGEMENT DISCHARGE SUMMARY PATIENT: SHI SERRANO UNIT: [id number] ADM DATE: 10/16/18 AGE: 78 : 41 SEX: F ROOM/BED: D.2230 AUTHOR: IRAIDA HYLTON PHYSICIAN: REFERRING PHYSICIAN: JESSA PATEL MD DATE OF SERVICE: 10/21/18 Discharge Plan Patient Name: SHI SERRANO Facility: [facility]:[place] : 1940 Planned Disposition: Home with Home Health Anticipated Discharge Date: 10/20/18 Discharge Date: Expected LOS: 4 Initial Reviewer: [email or web address] Initial Review Date: 10/19/2018 Generated: 10/21/18 11:31 am Comments DCP- Discharge Planning Updated by [email or web address]: Blanca Bhat on 10/21/18 9:[address] Patient Name: SHI SERRANO Encounter No: [id number] : 1940 Primary Insurance: MEDICARE A & B Anticipated DC Date: 10-20-2018 Planned Disposition: Home with Home Health External Planned Provider: : DCP follow-up note: Patient in agreement with discharge plan. States her son is picking her up. She is going home with [facility]. I called and spoke to Doris and clinical faxed. No changes to plan. Case management will follow and assist as needed. Blanca Home DCP- Discharge Planning Updated by [email or web address]: Blanca Tranconcepcion on 10/19/18 4:[address] Patient Name: SHI SERRANO Admission Status: ER Accout number: [id number] Admission Date: 10-16-2018 : 1940 Admission Diagnosis: Attending: JESSA PATEL Current LOS: 3 Anticipated DC Date: 10-20-2018 Planned Disposition: Home with Home Health Primary Insurance: MEDICARE A & B Discharge Planning Comments: CM met with patient to discuss discharge planning, she is alone in the room. States she lives in the main building of [facility] on the second floor. States she uses the elevator to go downstairs. States she is independent with her care. States she no longer drives. She does usually use her cane for ambulation. States [facility] has been helping her with her bathing. States she also has ST and PT with home health. States she feels it is a safe discharge to go home with resumption of [place] BENJAMIN. States her son will take her home on discharge. She has her portable oxygen here. She gets her oxygen and nebulizer supplies from [facility] Patient. Declines need for additional DME. CM will continue to follow and assist with discharge planning/needs. Jewelry Consultant: Blanca Bhat DCPIA - Discharge Planning Initial Assessment Updated by [email or web address]: Blanca Bhat on 10/19/18 5:03 pm * Is the patient Alert and Oriented? Yes * How many steps to enter\exit or inside your home? 0/0 * PCP House Calls * Pharmacy [facility] on [address] * Preadmission Environment Assisted Living * Facility Name [facility] * ADLs Partial Dependent * Partial ADLs (Assistance needed) Ambulation * Equipment Cane Nebulizer Other Oxygen Walker * Other Equipment Portable oxygen Call button * List name and contact numbers for known caregivers / representatives who currently or will assist patient after discharge: [facility] [phone] [facility] - [phone] * Verbal permission to speak to the caregivers and representatives has been obtained from the patient. Yes * Community resources currently utilized Assisted Living Home Health * Please name any agencies selected above. [facility] * Additional services required to return to the preadmission environment? No * Can the patient safely return to the preadmission environment? Yes * Has this patient been hospitalized within the prior 30 days at any hospital? Yes External Providers External Provider: [facility] Next Contact Date: Service Request Date: Service Type: Resolution: Reviewer: Comments: Coverage Notice Reviewer: [id number] - Blanca Home Notice Issued Date-Time: 10/21/2018 10:17 Notice Type: IM Discharge Notice Notice Delivered To: Patient Relationship to Patient: Self Paralegal Supervisor Name: Delivery Method: HAND - Hand Delivered Krystina Days: Prior Verbal Notification: Recipient Understood Notice: Yes Recipient Signature: Yes Med Rec Note Co-signed by Attending: Coverage Notice Comment: IMM explained, signed, given, original placed in MR Last DP export: 10/21/18 9:22 a Patient Name: SHI SERRANO Page [id number] at 1031 All edits/amendments must be made on the electronic document DICTATION DATE: 10/21/18 1031 BEHAVIORAL HEALTH THERAPIST: JEANETTE 10/21/18 1031 RPT#: [id number] DC DATE: STATUS: ADM IN [facility] [address] [place] [address] END OF REPORT
--- NOTE | 2018-10-21 11:15 | NUR ---
DISCUSSED DISCHARGE, MEDICATION AND FOLLOW-UP INSTRUCTIONS WITH PATIENT. IV REMOVED, TIP INTACT. ALL BELONGINGS SENT WITH PATIENT. DISCHARGED HOME VIA WHEELCHAIR BY STUDENT NURSE.
--- NOTE | 2018-10-21 11:59 | NUR ---
DISCUSSED DISCHARGE INSTRUCTIONS, MEDICATION AND FOLLOW-UP WITH PATIENT AND DAUGHTER. VERBALIZED UNDERSTANDING. IV REMOVED TIP INTACT. DRESSING TO RIGHT BYRNES CHANGED. ALL BELONGINGS SENT WITH PATIENT. DISCHARGED HOME VIA WHEELCHAIR BY VOLUNTEER ACCOMPANIED BY DAUGHTER.
--- NOTE | 2018-10-21 17:05 | MORECARE ---
CASE MANAGEMENT DISCHARGE SUMMARY PATIENT: SHI SERRANO UNIT: [id number] ADM DATE: 10/16/18 AGE: 78 : 41 SEX: F ROOM/BED: D.2230 AUTHOR: IRAIDA HYLTON PHYSICIAN: REFERRING PHYSICIAN: JESSA PATEL MD DATE OF SERVICE: 10/21/18 Discharge Plan Patient Name: SHI SERRANO Facility: [facility]:[place] : 1940 Planned Disposition: Home with Home Health Anticipated Discharge Date: 10/20/18 Discharge Date: 10/21/2018 Expected LOS: 4 Initial Reviewer: [email or web address] Initial Review Date: 10/19/2018 Generated: 10/21/18 6:05 pm Comments DCP- Discharge Planning Updated by [email or web address]: Blanca Tranconcepcion on 10/21/18 9:[address] Patient Name: SHI SERRANO Encounter No: [id number] : 1940 Primary Insurance: MEDICARE A & B Anticipated DC Date: 10-20-2018 Planned Disposition: Home with Home Health External Planned Provider: : DCP follow-up note: Patient in agreement with discharge plan. States her son is picking her up. She is going home with [facility]. I called and spoke to Doris and clinical faxed. No changes to plan. Case management will follow and assist as needed. Blanca Tranconcepcion DCP- Discharge Planning Updated by [email or web address]: Blanca Bhat on 10/19/18 4:[address] Patient Name: SHI SERRANO Admission Status: ER Accout number: [id number] Admission Date: 10-16-2018 : 1940 Admission Diagnosis: Attending: JESSA PATEL Current LOS: 3 Anticipated DC Date: 10-20-2018 Planned Disposition: Home with Home Health Primary Insurance: MEDICARE A & B Discharge Planning Comments: CM met with patient to discuss discharge planning, she is alone in the room. States she lives in the main building of [facility] on the second floor. States she uses the elevator to go downstairs. States she is independent with her care. States she no longer drives. She does usually use her cane for ambulation. States [facility] has been helping her with her bathing. States she also has ST and PT with home health. States she feels it is a safe discharge to go home with resumption of [place]. States her son will take her home on discharge. She has her portable oxygen here. She gets her oxygen and nebulizer supplies from [facility] Patient. Declines need for additional DME. CM will continue to follow and assist with discharge planning/needs. Industrial Economist: Blanca Bhat DCPIA - Discharge Planning Initial Assessment Updated by [email or web address]: Blanca Bhat on 10/19/18 5:03 pm * Is the patient Alert and Oriented? Yes * How many steps to enter\exit or inside your home? 0/0 * PCP House Calls * Pharmacy [facility] on [address] * Preadmission Environment Assisted Living * Facility Name [facility] * ADLs Partial Dependent * Partial ADLs (Assistance needed) Ambulation * Equipment Cane Nebulizer Other Oxygen Walker * Other Equipment Portable oxygen Call button * List name and contact numbers for known caregivers / representatives who currently or will assist patient after discharge: Raina [facility] - [phone] [facility] - [phone] * Verbal permission to speak to the caregivers and representatives has been obtained from the patient. Yes * Community resources currently utilized Assisted Living Home Health * Please name any agencies selected above. [facility] * Additional services required to return to the preadmission environment? No * Can the patient safely return to the preadmission environment? Yes * Has this patient been hospitalized within the prior 30 days at any hospital? Yes Coverage Notice Reviewer: [id number] - Blanca Bhat Notice Issued Date-Time: 10/21/2018 10:17 Notice Type: IM Discharge Notice Notice Delivered To: Patient Relationship to Patient: Self Mineral Surveyor Name: Delivery Method: HAND - Hand Delivered Krystina Days: Prior Verbal Notification: Recipient Understood Notice: Yes Recipient Signature: Yes Med Rec Note Co-signed by Attending: Coverage Notice Comment: IMM explained, signed, given, original placed in MR Last DP export: 10/21/18 9:31 a Patient Name: SHI SERRANO Page [id number] at 1705 All edits/amendments must be made on the electronic document DICTATION DATE: 10/21/181703 PROJECTION ENGINEER: JEANETTE 10/21/181703 RPT#: [id number] DC DATE:10/21/18 STATUS: DIS IN [facility] [address] [place] [address] END OF REPORT
== END 2018-10-21 11:15 | disposition home health service (06) | DRG 177 ==
LOC: D.ER 20:27 → D.EDHOLD 22:27 → D.MS 22:27
PROVIDERS: Family Medicine; Internal Medicine Nephrology; ADMIT Family Medicine
DX: J15.6 Pneumonia due to other Gram-negative bacteria (principal); J96.21 Acute and chronic respiratory failure with hypoxia; G93.41 Metabolic encephalopathy; J44.1 Chronic obstructive pulmonary disease with (acute) exacerbation; I50.32 Chronic diastolic (congestive) heart failure; J44.0 Chronic obstructive pulmonary disease with (acute) lower respiratory infection; J18.9 Pneumonia, unspecified organism; I11.0 Hypertensive heart disease with heart failure; I50.9 Heart failure, unspecified; E03.9 Hypothyroidism, unspecified; D50.9 Iron deficiency anemia, unspecified; I25.10 Atherosclerotic heart disease of native coronary artery without angina pectoris; F32.9 Major depressive disorder, single episode, unspecified

== ENCOUNTER → 2018-11-04 08:33 | Outpatient (CLI) | payer MEDICARE, OTHER ==
[2018-10-17 08:54] VITALS: BMI 39.7
[~2018-11-04 08:33] MED LIST changes: +FUROSEMIDE20 MG PO; +KLOR-CON 1010 MEQ
== END | disposition home or self-care (01) ==
LOC: D.RAD 08:00
PROVIDERS: ATTEND Internal Medicine Pulmonary Disease
DX: J44.9 Chronic obstructive pulmonary disease, unspecified (principal)

== ENCOUNTER 2019-01-01 11:07 | Emergency (ER) | payer MEDICARE, OTHER ==
[~2019-01-01] VITALS: Ht 157.5 cm; Wt 90.9 kg
[2019-01-01 11:14] VITALS: Ht 157.5 cm; Wt 90.9 kg
[2019-01-01 11:39] LABS: BASOPHILS 0.5 % (0-2); EOSINOPHILS 13.6 % (0-7); HEMATOCRIT 34.6 % (36.0-48.0); HEMOGLOBIN 10.9 g/dL (12-16); IMMATURE GRANULOCYTES 0.2 % (0-5); LYMPHOCYTES 20.7 % (15-50); MCH 27.2 pg (26.0-34.0); MCHC 31.5 g/dL (31.0-37.0); MCV 86.3 fL (80.0-100.0); MEAN PLATELET VOLUME 9.2 fL (7.4-10.4); MONOCYTES 8.8 % (2-11); NEUTROPHILS 56.2 % (40-80); PLATELET COUNT 206 10x3/uL (130-400); RBC 4.01 10x6/uL (4.00-5.40); RDW 15.3 % (11.5-14.5); WBC 6.1 10x3/uL (4.8-10.8)
[2019-01-01 11:48] LABS: INR 0.97 (0.85-1.17); PROTIME 12.4 SECONDS (11.6-15.0)
[2019-01-01 11:49] LABS: APTT 28.3 SECONDS (22.8-39.4)
[2019-01-01 11:53] LABS: ALBUMIN 3.4 g/dL (3.4-5.0); ALKALINE PHOSPHATASE 108 U/L (46-116); ALT (SGPT) 37 U/L (10-68); BILIRUBIN - TOTAL 0.69 mg/dL (0.2-1.3); CALC OSMOLALITY 285 mosm/kg (275-300); CALCIUM 9.8 mg/dL (8.5-10.1); CARBON DIOXIDE 30.2 mmol/L (21.0-32.0); CHLORIDE - SERUM 106 mmol/L (98-107); CREATININE - SERUM 0.9 mg/dL (0.6-1.3); GLUCOSE 100 mg/dL (74-106); POTASSIUM - SERUM 3.8 mmol/L (3.5-5.1); PROTEIN - SERUM 6.8 g/dL (6.4-8.2); SODIUM 142 mmol/L (136-145); UREA NITROGEN 20 mg/dL (7-18); eGFR NON AFRICAN AMERICAN 64 mL/min (90-120)
[2019-01-01 12:05] LABS: CKMB 1.9 U/L (0.0-3.6); CREATINE KINASE 83 UL (21-215); PRO BNP 135 pg/mL (0-450); TROPONIN-I < 0.017 ng/mL (0.000-0.060)
[2019-01-01] MEDS ORDERED: MEDROL DOSE PACK4 MG PO (13:26)
[2019-01-01 14:13] VITALS: BP 137/60
== END 2019-01-01 14:14 | disposition home or self-care (01) ==
LOC: D.ER 11:07
PROVIDERS: Family Medicine
DX: J44.1 Chronic obstructive pulmonary disease with (acute) exacerbation (principal)